=== PATIENT | male | born 1950 | race Caucasian/White ===

== ENCOUNTER 2023-09-09 06:17 | Day surgery (SDC) | payer OTHER, SELFPAY ==
[2023-09-01 10:39] VITALS: BMI 33.3
[2023-09-01 11:18] LABS: % Basophils 1.5 % (0-2); % Eosinophils 2.5 % (0-6); % Immature Granulocytes 0.3 % (0-0.5); % Lymphocytes 12.7 % (20.5-51.1); Absolute Basophils 0.1 10^3/uL (0-0.2); Absolute Eosinophils 0.2 10^3/uL (0-0.7); Absolute Lymphocytes 0.9 10^3/uL (1.2-3.4); Absolute Monocytes 0.7 10^3/uL (0.1-0.6); Absolute Neutrophils 5.4 10^3/uL (1.4-6.5); Hematocrit 42.9 % (39.0-52.0); Hemoglobin 13.9 g/dL (13.0-18.0); Mean Corp Hgb Conc. 32.4 g/dL (33.0-37.0); Mean Corpuscular Hgb 26.9 pg (27.0-31.0); Mean Platelet Volume 9.9 fL (7.4-10.4); Nucleated Red Blood Cells % 0 % (-); Platelet Count 239 10^3/uL (130-400); Red Blood Cell Count 5.17 10^6/uL (4.70-6.10); Red Cell Dist. Width 18.1 % (11.5-14.5); White Blood Cell Count 7.3 10^3/uL (4.8-10.8)
[2023-09-01 11:24] LABS: ALT (SGPT) 18 U/L (0-50); AST (SGOT) 20 U/L (17-59); Albumin 4.1 g/dl (3.5-5.0); Alkaline Phosphatase 96 U/L (38-126); Blood Urea Nitrogen 67 mg/dl (9-20); Calcium 9.5 mg/dl (8.4-10.2); Carbon Dioxide 27 mmol/L (22-30); Chloride 100 mmol/L (98-107); Estimated Creatinine Clearance 33 ml/min; Glucose 187 mg/dl (70-99); Potassium 3.4 mmol/L (3.5-5.1); Sodium 137 mmol/L (135-145); Total Protein 6.8 g/dl (6.3-8.2); eGFR 25.41
[2023-09-01 11:26] LABS: INR 1.39; PT 17.4 Sec (11.4-14.6)
[2023-09-01 15:48] LABS: NT-proBNP 1060 pg/ml
[2023-09-09] VITALS (22 sets, daily range): BP systolic 102–162; BP diastolic 39–98; BMI 33.0
[2023-09-09] MEDS: SODIUM BICARBONATE 1150 MEQ IV (07:02)
[2023-09-09 07:10] LABS: Glucose - Point of Care 135 mg/dl (70-99)
--- NOTE | 2023-09-09 07:15 | PTCARENOTE ---
Pt arrived to recovery room and placed on cardiac rn. Pt's cardiac rn showing Paced rhythm with runs of non sustained VT. Pt asymptomatic. VSS. Defibrillator pads placed and defibrillator at pt bedside as precaution. [employer] interrogator
device at pt bedside if needed. Dr Garg aware and in to evaluate and consent pt for procedure. No further treatment ordered at this time.
[2023-09-09] MEDS: ASPIRIN 325 MG PO (07:23)
--- NOTE | 2023-09-09 07:38 | ITS.CL.CATH ---
Cos[employer] Educator - Catheterization
Cardiac Catheterization
Procedure Report:
LEFT AND RIGHT HEART CATHETERIZATION
Date of Procedure: September 09, 2023
Referring: Johnathan Carson
PROCEDURES:
1. Left catheterization, coronary angiogram.
2. Right heart catheterization.
3. Ultrasound-guided access
INDICATION: Mr. Kumar is a 73-year-old gentleman with past medical history of hypertension, hyperlipidemia, insulin-dependent type 2 diabetes mellitus (Hgb A1c 8.7), paroxysmal atrial fibrillation on chronic anticoagulation with Eliquis, coronary
artery disease status post prior mid LAD PCI in 2015 with a 3.0 x 16 mm drug-eluting stent, ischemic cardiomyopathy with LVEF of about 40 to 45%, prior cerebellar stroke in 2020, chronic systolic and diastolic heart failure, morbid obesity, presence
of a permanent BiV pacemaker since 2019, QUENTIN on CPAP, progressive chronic kidney disease, stage IV (creatinine now mid 2s) most recently with ongoing dyspnea on exertion and frequent episodes of nonsustained VT who is now referred for a left and
right heart catheterization in setting of borderline stress test. Echocardiogram performed July 24, 2023 showed LVEF of 43% with akinesis of the basal inferior and inferoseptal kovacs with septal dyskinesis, LVH, dilated left atrium, pulmonary
artery pressure 5-10 mmHg. Compared to prior study April 08, 2021 EF slightly worse and previously being 45-50%. The patient had a subsequent nuclear stress test, which was inconclusive for ischemia, however, showed a mild basal to mid apical
anterior ischemia, basal mid-inferolateral scar complicated by inferior soft tissue attenuation.�
ACCESS:
1. Right brachial vein, 6 Malagasy sheath.
2. Left radial artery, 6 Malagasy sheath, under ultrasound guidance
HEMODYNAMICS : (mmHg): Significant ventricular ectopy and runs of nonsustained ventricular tachycardia contributing to data below having some limitations
RA (m) : 18
RV (s/d,m) : 56/17, 30
PA (s/d, m) : 28
PCWP (m) : 56/32, 40
PA saturation: 57.2% on room air
AO saturation: 89.1% on room air
RA saturation: 58.7% on room air
Cardiac Output : 5.1 L/min
Cardiac Index : 2.2 L/min/m-2
Systemic vascular resistance: 1041 dsc^(-5)
Pulmonary vascular resistance: 3.94 gutierrez unit
Heart rate is 87 bpm.
AO (s/d) : 104/72
LV (s/d) : 110/13
LVEDP : 24
CORONARY FINDINGS: Heavily calcified coronary artery
DOMINANCE: Right
LEFT MAIN: The left main artery is a large-caliber vessel which gives rise to the left anterior descending artery and the left circumflex artery. There is 10 to 20% distal tapering.
LEFT ANTERIOR DESCENDING: The left into descending artery is a medium to large caliber vessel which gives rise to one major small caliber diagonal branch. The previous mid LAD stent is patent. There is an eccentric 40 to 50% stenosis proximal to
the mid LAD stent. Otherwise there is mild diffuse atherosclerotic plaque without any focal obstructive CAD. The diagonal has a proximal 50% stenosis which appears unchanged from the previous catheterization.
CIRCUMFLEX: The left circumflex artery is a medium to large caliber vessel which gives rise to 1 major obtuse marginal branch. There is a stable 30 to 40% mid left circumflex stenosis.
RIGHT CORONARY ARTERY: The right coronary artery is a large-caliber, dominant vessel which gives rise to the right posterior descending artery and the right posterolateral system. There is mild diffuse atherosclerotic plaque.
SEDATION: 36 minutes of procedural sedation was utilized. An independent medical office manager was present to assist with and help manage the patient's level of consciousness and physiologic status.
RADIATION SUMMARY: Fluoro Time (min): 6.5, Dose (mGy): 646.3, DAP (Gy.cm2) : 54.4
Closure Device:
1. Radial band over left radial artery, 10 cc of air.
2. Manual pressure was held over the right brachial venous access site with successful hemostasis.
CONCLUSIONS
1. Stable non- obstructive coronary artery disease.
2. Significantly elevated left and right-sided filling pressures with normal cardiac output and severe pulmonary hypertension.
3. Elevated LVEDP.
RECOMMENDATIONS
1. Optimize diuretic therapy to improve filling pressures.
2. Goal-directed medical therapy for underlying cardiomyopathy.
3. Aggressive management of cardiovascular risk factors
Copy to: Johnathan Carson
Maria Luisa Garg MD, FACC, [facility]
--- NOTE | 2023-09-09 09:00 | PTCARENOTE ---
Received pt from laborer laboratory procedure. Pt continuing to have paced rhythm with runs of VT. Defibrillator pads remain on pt and defibrillator at pt bedside if needed. Pt remains asymptomatic. Will continue to monitor.
[2023-09-09] MEDS: LASIX 80 MG IV (09:14)
[2023-09-09] MEDS: KCL 20 MEQ PO (09:16)
--- NOTE | 2023-09-09 09:45 | PTCARENOTE ---
Eliane Calvin SNELLER HAND states Dr Garg spoke with Dr Carson. Dr Carson ordered to have pt's coreg increased to 37.5mg per Eliane Calvin NP. Coreg 37.5 mg will be given as ordered. Will continue to monitor.
[2023-09-09] MEDS: COREG 12.5 MG PO (10:04)
[2023-09-09] MEDS: COREG 25 MG PO (10:05)
[2023-09-09 10:14] LABS: Glucose - Point of Care 153 mg/dl (70-99)
[2023-09-09 10:19] LABS: Blood Urea Nitrogen 72 mg/dl (9-20); Calcium 9.2 mg/dl (8.4-10.2); Carbon Dioxide 25 mmol/L (22-30); Chloride 98 mmol/L (98-107); Estimated Creatinine Clearance 38 ml/min; Glucose 140 mg/dl (70-99); Magnesium 1.3 mg/dl (1.6-2.3); Potassium 3.2 mmol/L (3.5-5.1); Sodium 138 mmol/L (135-145); eGFR 31.05
[2023-09-09] MEDS: MAGNESIUM OXIDE 500 MG PO (10:46)
[2023-09-09] MEDS: KCL 40 MEQ PO (10:46)
[2023-09-09] MEDS: MAGNESIUM SULFATE 50 IV (11:33)
== END 2023-09-09 13:52 | disposition home or self-care (01) ==
LOC: CATH 06:17
PROVIDERS: Nurse Practitioner Adult Health; ATTENDING PHYSICIAN Internal Medicine Interventional Cardiology; FAMILY PHYSICIAN Family Medicine; OTHER PHYSICIAN Internal Medicine Cardiovascular Disease
DX: I25.10 Atherosclerotic heart disease of native coronary artery without angina pectoris (principal); I27.20 Pulmonary hypertension, unspecified; I25.5 Ischemic cardiomyopathy; I48.0 Paroxysmal atrial fibrillation; I47.20 Ventricular tachycardia, unspecified; E78.5 Hyperlipidemia, unspecified; Z79.4 Long term (current) use of insulin; I13.0 Hypertensive heart and chronic kidney disease with heart failure and stage 1 through stage 4 chronic kidney disease, or unspecified chronic kidney disease; E11.22 Type 2 diabetes mellitus with diabetic chronic kidney disease; N18.32 Chronic kidney disease, stage 3b; I50.42 Chronic combined systolic (congestive) and diastolic (congestive) heart failure; Z87.891 Personal history of nicotine dependence; K21.9 Gastro-esophageal reflux disease without esophagitis; E66.9 Obesity, unspecified; Z68.33 Body mass index [BMI] 33.0-33.9, adult; G47.33 Obstructive sleep apnea (adult) (pediatric); Z79.01 Long term (current) use of anticoagulants; H26.9 Unspecified cataract; M19.90 Unspecified osteoarthritis, unspecified site; R26.9 Unspecified abnormalities of gait and mobility; E11.40 Type 2 diabetes mellitus with diabetic neuropathy, unspecified; E11.319 Type 2 diabetes mellitus with unspecified diabetic retinopathy without macular edema; Z95.5 Presence of coronary angioplasty implant and graft; Z86.73 Personal history of transient ischemic attack (TIA), and cerebral infarction without residual deficits
CPT/HCPCS: 99152; 99153; 36415; 76937; 80048; 80053; 82962; 83735; 83880; 85025; 85610; 93005; 93460; C1894

== ENCOUNTER 2024-10-18 23:54 | Inpatient (IN) | payer MEDICARE, OTHER, SELFPAY ==
[2024-10-18 18:20] VITALS: BMI 30.8
[2024-10-18 18:24] VITALS: BP 96/61
[2024-10-18 18:53] LABS: % Basophils 1.2 % (0-2); % Eosinophils 2.4 % (0-6); % Immature Granulocytes 0.3 % (0-0.5); % Lymphocytes 12.2 % (20.5-51.1); % Monocytes 9.9 % (1.7-9.3); Absolute Basophils 0.1 10^3/uL (0-0.2); Absolute Eosinophils 0.2 10^3/uL (0-0.7); Absolute Lymphocytes 0.8 10^3/uL (1.2-3.4); Absolute Monocytes 0.7 10^3/uL (0.1-0.6); Hemoglobin 12.1 g/dL (13.0-18.0); Mean Corp Hgb Conc. 31.8 g/dL (33.0-37.0); Mean Corpuscular Hgb 25.6 pg (27.0-31.0); Mean Corpuscular Volume 80.5 fL (80.0-94.0); Mean Platelet Volume 9.9 fL (7.4-10.4); Nucleated Red Blood Cells % 0 % (-); Platelet Count 204 10^3/uL (130-400); Red Blood Cell Count 4.72 10^6/uL (4.70-6.10); Red Cell Dist. Width 17.9 % (11.5-14.5); White Blood Cell Count 6.8 10^3/uL (4.8-10.8)
[2024-10-18 19:10] LABS: ALT (SGPT) 10 U/L (0-50); AST (SGOT) 16 U/L (17-59); Albumin 4.5 g/dl (3.5-5.0); Alkaline Phosphatase 102 U/L (38-126); Calcium 9.6 mg/dl (8.4-10.2); Carbon Dioxide 28 mmol/L (22-30); Chloride 88 mmol/L (98-107); Glucose 71 mg/dl (70-99); Potassium 3.2 mmol/L (3.5-5.1); Sodium 130 mmol/L (135-145); Total Bilirubin 1.4 mg/dl (0.2-1.3); Total Protein 7.1 g/dl (6.3-8.2); eGFR 16.01
[2024-10-18 19:26] LABS: Blood Urea Nitrogen 154 mg/dl (9-20)
--- NOTE | 2024-10-18 19:40 | ED.SKININJ ---
HPI-Injury
<Rosey Burgos PATIENT CARE - Last Filed: 10/21/24 09:02>
General
Chief Complaint: Skin Problem
Source: patient and family (Daughter at bedside)
Exam Limitations: none
Time Seen by Provider: 10/18/24 19:38
Nursing documentation reviewed up to this point in time: agreed with
History of Present Illness-Injury
Initial Injury comments:
74-year-old male with history of CVA, A-fib on Eliquis, IDDM, CHF, CAD, HTN, HLD, pacemaker, CKD, anemia presents for redness, swelling, scabs on right side of face. States it's not painful. Rash w scabbing and redness has spread slowly over past 9
days. Rash is no where else on body. No lesions in mouth. Tooth remains 'sore' but no significant pain. Was to have tooth pulled today but postponed due to facial rash
10/09 right upper tooth pain
10/10 saw dentist, given rx for Amoxicillin, noted 'scratch' right mid cheek (this was noted BEFORE starting Amoxicillin).
10/11 started Amoxicillin BID
Today took last Amoxicillin
Denies fever/chills. Denies n/v/c. Has chronic intermittent diarrhea.
Past week, appetite poor, lost 10 lbs, not urinating as much.
Past History
<Rosey Burgos, PATIENT CARE - Last Filed: 10/21/24 09:02>
Past History
ED Past Medical History: Arrthythmia, CAD, HTN, Hypercholesterolemia, NIDDM, Other (Chronic kidney disease) and Other (Anemia)
ED Past Surgical History: Cardiac, Orthopedic and Other (Hernia surgery)
Social History
Tobacco: Former smoker
Alcohol: None
Drug: None
Personal:
Living: with family
Family History
Family History: Other (Noncontributory)
Review of Systems
<Rosey Burgos PATIENT CARE - Last Filed: 10/21/24 09:02>
Review of Systems
Allergies reviewed?: Yes
All Other Systems: ROS reviewed and negative except as documented in HPI and ROS
Constitutional: Denies fever or chills
EENT: Reports other (sore upper right tooth)
Respiratory: Denies trouble breathing
Cardiac: Denies chest pain
ABD/GI: Reports diarrhea (chronic, intermittent) and anorexia; Denies abdominal pain, nausea or vomiting
: Reports other (voiding less than usual past week)
Musculoskeletal: Reports no symptoms; Denies edema
Skin: Reports rash (right side of face)
Neurological: Reports no symptoms
Phy Exam
<Rosey Burgos, PATIENT CARE - Last Filed: 10/21/24 09:02>
Physical Exam
Physical Exam:
GENERAL: No acute distress. A&Ox3.
CONSTITUTIONAL: Afebrile.
EYES: clear, redness and ectropion R lower eyelid
ENMT: moist mucus membranes, Pharynx nl
RESPIRATORY: Regular respirations, nonlabored, lungs clear.
CARDIOVASCULAR: Regular rate and rhythm, no murmurs, no rubs.
GI: Soft, nontender, normal BS
MUSCULOSKELETAL: Moves with ease. Well perfused.
SKIN: Warm, dry, pink. Scabbed over rash on erythematous base over right side face from lower lid to upper lip
PSYCH: Normal mood and affect. Well kept, interactive and appropriate
NEUROLOGIC: Awake, alert and oriented. No focal neurological deficits
Course
<Rosey Burgos, PATIENT CARE - Last Filed: 10/21/24 09:02>
Orders/Labs/Results
Orders:
Orders
10/18/24 18:34
Complete Blood Count/With Diff Urgent
Comprehensive Metabolic Panel Urgent
10/18/24 19:52
Bladder Scan- Treatment ONCE
10/18/24 19:53
0.9% Sodium Chloride 1000 ml [Nss] 1,000 ml IV BOLUS
10/18/24 20:49
CT Facial Bones W/o Iv Contras Urgent
Comment:
Reason For Exam: infection right side face
10/18/24 22:35
Clindamycin 900 mg/50 ml [Cleocin] 900 mg in 50 ml IV NOW
10/18/24 23:00
Flush (0.9% Sodium Chloride) [Flush (Nss)] See Dose Instructions IV PER PROTOCOL
10/18/24 23:03
Admit/Transfer Patient As Directed
Co-Sign Provider:
Level of Care: Inpatient admission
Assign to:: Medical/Surgical
Physician / Group: Htay
Diagnosis: Shingles
Reason for Hospitalization: IV acyclovir
Expected length of stay greater than two midnights?: Yes
ELOS- Estimated Length of Stay in days: 3
I certify the patient meets the requirements for IP care: Yes
PRN Pain Medication Management As Directed
May give lesser potent ordered pain med per pt: Yes
preference::
Protocol:: Medication orders for pain may be administered in a
manner that supports deferring to patient preference
when the pt is:
- Requesting an ordered lesser potent pain medication.
Least to most potent pain medications are defined
as: acetaminophen < NSAID < tramadol < opioids
(morphine, oxycodone, hydromorphone).
- Requesting a lesser dose of the same medication IF
ORDERED.
- Requesting a less intrusive route of administration
if both routes are prescribed by the provider (PO <
IV).
10/18/24 23:06
Code Status As Directed
Resuscitation Status: Full Code
10/19/24 00:40
Acetaminophen [Tylenol] 650 mg PO Q4HPRN PRN
Dextrose 50%-Water [Dextrose 50% Syringe] 12.5 grams IV [id number] PRN
Glucagon [GlucaGen] 1 mg IM PRN PRN
10/19/24 00:40
Consult Notification Routine
Specialty to Notify: Infectious Disease
Date consulting provider notified: 10/19/24
Time consulting provider notified: 08:10
Notified:: Provider
Comment: via TT
Consult Notification Routine
Specialty to Notify: Nephrology
Date consulting provider notified: 10/19/24
Time consulting provider notified: 07:58
Notified:: Provider
Comment: via TT
Consult Notification Routine
Specialty to Notify: Opthamology
Date consulting provider notified: 10/19/24
Time consulting provider notified: 07:58
Notified:: Provider
Comment: via TT
INFECTIOUS DISEASE CONSULT Routine
Consulting Provider: Emmy Lang
Was physician already notified: No
Reason for consult: shingles
NEPHROLOGY CONSULT Routine
Consulting Provider: Raisa Thompson
Was physician already notified: No
Reason for consult: CRISTIAN on CKD IV
OPHTHAMOLOGY CONSULT Routine
Consulting Provider: Kathy Chu
Was physician already notified: No
Reason for consult: shingles, possible herpes ophthalmicus
Activity As Directed
Activity Level: Out of Bed-Early Mobility
With Assistance
Bedside Glucose Monitoring As Directed
Frequency: AC&HS
Additional Instructions:: Change to q6h if pt on TPN, tube feeding or not eating
I&O [Intake/ Output] As Directed
Frequency: q12h
Pneumatic Compression Sleeves As Directed
Type: Knee high
Vital Signs As Directed
Frequency: Per unit guidelines
Weight As Directed
Frequency: Daily
DX Deep Vein Thrombosis Video Routine
10/19/24 01:00
Acyclovir [Zovirax Injection] 800 mg 0.9% Sodium Chloride 250 ml [Nss] 250 ml IV Q12@0000,1200
10/19/24 06:00
CeFAZolin 2 GRAM [Ancef] 2 grams in 10 ml IV Q12H
10/19/24 06:08
Basic Metabolic Panel IN AM
Complete Blood Count/No Diff IN AM
Glycohemoglobin (HgbA1c) IN AM
10/19/24 07:30
Insulin Aspart High Resistance [Novolog Flexpen-High Resistance] See Protocol SC AC
Insulin Aspart Pen [Novolog Flexpen] DOSE units SC AC
10/19/24 08:00
Allopurinol [Zyloprim] 300 mg PO DAILY
Apixaban [Eliquis] 5 mg PO BID
Atorvastatin [Lipitor] 80 mg PO DAILY
Carvedilol [Coreg] 50 mg PO BID
HydrALAZINE [Apresoline] 10 mg PO BID
ISOSORBIDE MONOnitrate ER [Imdur (Extended Release)] 30 mg PO DAILY
Pantoprazole [Protonix] 40 mg PO DAILY
10/19/24 Dinner
2000 calorie (17 carb) Diabetic
At Your Request: Full Participation
Fluid Restriction: 1500 mL/day (50 oz)
Diabetic Diet: Sodium, 2 Gram
10/19/24 22:00
insulin glargine [Lantus U-100 Insulin] 40 units SC HS
Abnormal Lab Results
10/18/24
18:34
Hgb 12.1 L g/dL
(13.0-18.0)
Hct 38.0 L %
(39.0-52.0)
MCH 25.6 L pg
(27.0-31.0)
MCHC 31.8 L g/dL
(33.0-37.0)
RDW 17.9 H %
(11.5-14.5)
Absolute Lymphs (auto) 0.8 L 10^3/uL
(1.2-3.4)
Absolute Monos (auto) 0.7 H 10^3/uL
(0.1-0.6)
Lymphocytes % 12.2 L %
(20.5-51.1)
Monocytes % 9.9 H %
(1.7-9.3)
Sodium 130 L mmol/L
(135-145)
Potassium 3.2 L mmol/L
(3.5-5.1)
Chloride 88 L mmol/L
(98-107)
BUN 154 H* mg/dl
(9-20)
Creatinine 3.8 H mg/dL
(0.7-1.3)
Total Bilirubin 1.4 H mg/dl
(0.2-1.3)
AST 16 L U/L
(17-59)
10/18/24 18:34
10/18/24 18:34
Vital Signs
Initial and Last Documented VS:
Initial Vital Signs
Temp Pulse Resp BP Pulse Ox
97.4 F 97 18 96/61 97
10/18/24 18:24 10/18/24 18:24 10/18/24 18:24 10/18/24 18:24 10/18/24 18:24
Last Documented Vital Signs
Temp Pulse Resp BP Pulse Ox
97.5 F 82 16 116/70 97
10/21/24 07:27 10/21/24 08:31 10/21/24 07:27 10/21/24 08:31 10/21/24 07:27
Mercury Purifier consulted with Physician
Mercury Purifier consulted with physician?: Yes
Name of Physician Consulted: Donna
<Jarrell Thompson MD - Last Filed: 10/18/24 22:24>
Orders/Labs/Results
Orders:
Orders
10/18/24 18:34
Complete Blood Count/With Diff Urgent
Comprehensive Metabolic Panel Urgent
10/18/24 19:52
Bladder Scan- Treatment ONCE
10/18/24 19:53
0.9% Sodium Chloride 1000 ml [Nss] 1,000 ml IV BOLUS
10/18/24 20:49
CT Facial Bones W/o Iv Contras Urgent
Comment:
Reason For Exam: infection right side face
10/18/24 22:35
Clindamycin 900 mg/50 ml [Cleocin] 900 mg in 50 ml IV NOW
10/18/24 23:00
Flush (0.9% Sodium Chloride) [Flush (Nss)] See Dose Instructions IV PER PROTOCOL
10/18/24 23:03
Admit/Transfer Patient As Directed
Co-Sign Provider:
Level of Care: Inpatient admission
Assign to:: Medical/Surgical
Physician / Group: Htay
Diagnosis: Shingles
Reason for Hospitalization: IV acyclovir
Expected length of stay greater than two midnights?: Yes
ELOS- Estimated Length of Stay in days: 3
I certify the patient meets the requirements for IP care: Yes
PRN Pain Medication Management As Directed
May give lesser potent ordered pain med per pt: Yes
preference::
Protocol:: Medication orders for pain may be administered in a
manner that supports deferring to patient preference
when the pt is:
- Requesting an ordered lesser potent pain medication.
Least to most potent pain medications are defined
as: acetaminophen < NSAID < tramadol < opioids
(morphine, oxycodone, hydromorphone).
- Requesting a lesser dose of the same medication IF
ORDERED.
- Requesting a less intrusive route of administration
if both routes are prescribed by the provider (PO <
IV).
10/18/24 23:06
Code Status As Directed
Resuscitation Status: Full Code
10/19/24 00:40
Acetaminophen [Tylenol] 650 mg PO Q4HPRN PRN
Dextrose 50%-Water [Dextrose 50% Syringe] 12.5 grams IV [id number] PRN
Glucagon [GlucaGen] 1 mg IM PRN PRN
10/19/24 00:40
Consult Notification Routine
Specialty to Notify: Infectious Disease
Date consulting provider notified: 10/19/24
Time consulting provider notified: 08:10
Notified:: Provider
Comment: via TT
Consult Notification Routine
Specialty to Notify: Nephrology
Date consulting provider notified: 10/19/24
Time consulting provider notified: 07:58
Notified:: Provider
Comment: via TT
Consult Notification Routine
Specialty to Notify: Opthamology
Date consulting provider notified: 10/19/24
Time consulting provider notified: 07:58
Notified:: Provider
Comment: via TT
INFECTIOUS DISEASE CONSULT Routine
Consulting Provider: Emmy Lang
Was physician already notified: No
Reason for consult: shingles
NEPHROLOGY CONSULT Routine
Consulting Provider: Raisa Thompson
Was physician already notified: No
Reason for consult: CRISTIAN on CKD IV
OPHTHAMOLOGY CONSULT Routine
Consulting Provider: Kathy Chu
Was physician already notified: No
Reason for consult: shingles, possible herpes ophthalmicus
Activity As Directed
Activity Level: Out of Bed-Early Mobility
With Assistance
Bedside Glucose Monitoring As Directed
Frequency: AC&HS
Additional Instructions:: Change to q6h if pt on TPN, tube feeding or not eating
I&O [Intake/ Output] As Directed
Frequency: q12h
Pneumatic Compression Sleeves As Directed
Type: Knee high
Vital Signs As Directed
Frequency: Per unit guidelines
Weight As Directed
Frequency: Daily
DX Deep Vein Thrombosis Video Routine
10/19/24 01:00
Acyclovir [Zovirax Injection] 800 mg 0.9% Sodium Chloride 250 ml [Nss] 250 ml IV Q12@0000,1200
10/19/24 06:00
CeFAZolin 2 GRAM [Ancef] 2 grams in 10 ml IV Q12H
10/19/24 06:08
Basic Metabolic Panel IN AM
Complete Blood Count/No Diff IN AM
Glycohemoglobin (HgbA1c) IN AM
10/19/24 07:30
Insulin Aspart High Resistance [Novolog Flexpen-High Resistance] See Protocol SC AC
Insulin Aspart Pen [Novolog Flexpen] DOSE units SC AC
10/19/24 08:00
Allopurinol [Zyloprim] 300 mg PO DAILY
Apixaban [Eliquis] 5 mg PO BID
Atorvastatin [Lipitor] 80 mg PO DAILY
Carvedilol [Coreg] 50 mg PO BID
HydrALAZINE [Apresoline] 10 mg PO BID
ISOSORBIDE MONOnitrate ER [Imdur (Extended Release)] 30 mg PO DAILY
Pantoprazole [Protonix] 40 mg PO DAILY
10/19/24 Dinner
2000 calorie (17 carb) Diabetic
At Your Request: Full Participation
Fluid Restriction: 1500 mL/day (50 oz)
Diabetic Diet: Sodium, 2 Gram
10/19/24 22:00
insulin glargine [Lantus U-100 Insulin] 40 units SC HS
Abnormal Lab Results
10/18/24
18:34
Hgb 12.1 L g/dL
(13.0-18.0)
Hct 38.0 L %
(39.0-52.0)
MCH 25.6 L pg
(27.0-31.0)
MCHC 31.8 L g/dL
(33.0-37.0)
RDW 17.9 H %
(11.5-14.5)
Absolute Lymphs (auto) 0.8 L 10^3/uL
(1.2-3.4)
Absolute Monos (auto) 0.7 H 10^3/uL
(0.1-0.6)
Lymphocytes % 12.2 L %
(20.5-51.1)
Monocytes % 9.9 H %
(1.7-9.3)
Sodium 130 L mmol/L
(135-145)
Potassium 3.2 L mmol/L
(3.5-5.1)
Chloride 88 L mmol/L
(98-107)
BUN 154 H* mg/dl
(9-20)
Creatinine 3.8 H mg/dL
(0.7-1.3)
Total Bilirubin 1.4 H mg/dl
(0.2-1.3)
AST 16 L U/L
(17-59)
10/18/24 18:34
10/18/24 18:34
Vital Signs
Initial and Last Documented VS:
Initial Vital Signs
Temp Pulse Resp BP Pulse Ox
97.4 F 97 18 96/61 97
10/18/24 18:24 10/18/24 18:24 10/18/24 18:24 10/18/24 18:24 10/18/24 18:24
Last Documented Vital Signs
Temp Pulse Resp BP Pulse Ox
97.5 F 82 16 116/70 97
10/21/24 07:27 10/21/24 08:31 10/21/24 07:27 10/21/24 08:31 10/21/24 07:27
Aurealt;Rosey Burgos PATIENT CARE - Last Filed: 10/21/24 09:02>
MDM/Problems Addressed
Differential Diagnosis Includes:
cellulitis, dental abscess, shingles, SJS, TENS,
MDM/Problems Addressed:
74-year-old male with history of CVA, A-fib on Eliquis, IDDM, CHF, CAD, HTN, HLD, pacemaker, CKD, anemia,CPAP, presents for redness, swelling, scabs on right side of face. States it's not painful. Rash w scabbing and redness has spread slowly over
past 9 days. Rash is no where else on body. No lesions in mouth. Tooth remains 'sore' but no significant pain. Was to have tooth pulled today but postponed due to facial rash
10/09 right upper tooth pain
10/10 saw dentist, given rx for Amoxicillin, noted 'scratch' right mid cheek (this was noted BEFORE starting Amoxicillin).
10/11 started Amoxicillin BID
Today took last Amoxicillin
Denies fever/chills. Denies n/v/c. Has chronic intermittent diarrhea.
Past week, appetite poor, lost 10 lbs, not urinating as much.
CBC: no clinically significant abnormality
CMP: acute on chronic renal failure
Facial CT: no abscess noted. Official report pending
Case discussed with Dr. Thompson who examined pt and agrees with assessment and plan
Plan: Admit: Facial cellulitis, acute on chronic renal insufficiency
Hospitalist notified of admission.
<Rosey Burgos NP - Last Filed: 10/21/24 09:02>
*Critical Care Note
Total Time (30-74mins, 75-104mins- exclusive of procedures): Not Applicable
ED Attending Note
<Rosey Burgos NP - Last Filed: 10/21/24 09:02>
-
Portions of this chart may have been created with voice recognition software.� Occasional wrong word or��sound alike� substitutions may have occurred due to the inherent limitations of voice recognition software.
<Jarrell Thompson MD - Last Filed: 10/18/24 22:24>
ED Attending Note
Patient seen and examined by attending physician: Yes
ED Attending Note:
I have seen and evaluated the patient with a [id number] encounter. I have spoken to the advance practicer provider and involved in the medical history, the physical exam, medical decision making.
Evaluation and management service: agree unless noted differently below.
Results interpretation: agree unless noted differently below.
Focused HPI: 74-year-old male with history as noted presents to the ER for evaluation of right-sided facial pain and rash. He started with toothache 2 weeks ago and was taking Tylenol. He started to have scab/rash on the right cheek went to his
dentist who was concerned for dental infection and started him on amoxicillin. Despite taking antibiotic he has had continued pain, redness, swelling, scabbing on the right cheek and right side of his nose. Came to the ER for assessment.
Physical exam: Awake alert no distress. Vital signs normal. Patient has erythema, warmth, tenderness along the right maxillary region as well as the right side of his nose; scabbing/cracking of the skin. Extends slightly to the upper lip. No
oral ulcerations or sores noted. No tenderness to percussion of the upper molars.
Medical Decision Makin-year-old male presents with redness, swelling, scabbing of the right face in the setting of recent dental infection. Has been on amoxicillin but symptoms actually worsening. Patient started having rash well before
starting Augmentin and so lower suspicion that this is related to SJS/drug rash. Suspected this may be a facial cellulitis. CT face no clear abscess but does show findings consistent with cellulitis. Labs showed CRISTIAN, mild hypokalemia. Provide
fluids, antibiotics, admit for continued monitoring.
Discharge Plan
Departure
Patient Disposition: Admit
Date of Disposition: 10/18/24
Time of Disposition: 21:58
Admit to: Med/Surg
Presentation/result/management discussed w/ accepting MD/DO: Hospitalist
Condition: Fair
Discharge Problem:
Cellulitis of face, CRISTIAN (acute kidney injury)
Interventions
Interventions:
*Risk Screen - Suicide Last Done: 10/18/24 18:24
*General Assessment Last Done: 10/18/24 18:24
*Neglect/Abuse Screening Last Done: 10/18/24 18:24
*ED COVID-19 Vaccine History Last Done: 10/19/24 16:13
*Nursing Disposition Last Done: 10/19/24 15:30
ED-Skin Assessment Last Done: 10/19/24 07:48
Discharge Date and Time
Discharge Date/Time: 10/19/24 15:40
[2024-10-18 20:30] VITALS: BP 114/64
[2024-10-18] MEDS: NSS 1000 IV (20:33)
[2024-10-18 21:00] VITALS: BP 110/72
--- NOTE | 2024-10-18 22:10 | HPS.HSE ---
Family Physician
-
Family Physician: Suzy Arias, DO
Chief Complaint
-
Facial Rash
History of Present Illness
Patient is a 74 y/o male past medical history of CAD, CVA, CHF, CKD, A-fib, and DM who presents with facial rash. Patient describes redness, swelling and scabs on his right face. He denies pain, but notes the area can be itchy at times. He notes
bleeding from the nose which has become more frequent. He notes decreased oral intake. He denies fevers, sweats or chills.
Medical History
Past Medical History
Past Medical History: Reports Other
Additional Past Medical History:
Coronary Artery Disease s/p LAD Stent in 2016
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
Chronic HFrEF
Paroxysmal Atrial Fibrillation s/p Ablation
Non-Sustained Ventricular Tachycardia
Essential Hypertension
Hyperlipidemia
Diabetes mellitus, Type II
CKD Stage IV
GERD
Obesity
Obstructive Sleep Apnea
Gout
Past Surgical History: Reports Other
Additional Past Surgical History:
Permanent Pacemaker
Left Ankle Surgery
Left Knee Surgery
Umbilical Hernia Repair
Social History
Tobacco: Former Smoker
Family History
Family History: Not pertinent
Allergies / Home Medications
Allergies reflects when Allergies were last updated in [facility].
Home Medications with original date entered in [facility]
Allergy/Medication List:
Allergies
Allergy/AdvReac Type Severity Reaction Status Date / Time
acetaminophen Allergy cough Verified 10/18/24 18:24
lisinopril Allergy cough Verified 10/18/24 18:24
metformin Allergy renal Verified 10/18/24 18:24
failure
Home Medications
apixaban 5 mg tablet (Eliquis) 5 mg PO BID #0 tabs 04/19/21
cholecalciferol (vitamin D3) 50 mcg (2,000 unit) tablet 2,000 units PO DAILY #0 tabs 04/19/21
clopidogrel 75 mg tablet 75 mg PO DAILY #30 tabs 04/19/21
hydralazine 10 mg tablet 10 mg PO BID #0 tabs 04/19/21
isosorbide mononitrate 30 mg tablet,extended release 24 hr 30 mg PO DAILY #0 tabs 04/19/21
pantoprazole 40 mg tablet,delayed release 40 mg PO DAILY #30 tabs 04/19/21
allopurinol 300 mg tablet 300 mg PO DAILY 07/28/23
atorvastatin 80 mg tablet 80 mg PO DAILY 07/28/23
carvedilol 25 mg tablet 50 mg PO BID 07/28/23
insulin aspart U-100 100 unit/mL (3 mL) subcutaneous pen (Novolog FlexPen U-100 Insulin aspart) 40 - 60 sliding scale dose SC AC 07/28/23
insulin glargine 100 unit/mL subcutaneous solution (Lantus U-100 Insulin) 50 units SC HS 07/28/23
furosemide 80 mg tablet (Lasix) 80 mg PO BID #180 tabs 09/09/23
potassium chloride 20 mEq tablet,extended release(part/cryst) (Klor-Con M) 40 meq (2 x 20 mEq) PO BID #180 tabs 09/09/23
magnesium oxide 500 mg PO QPM 10/18/24
metolazone 5 mg tablet 5 mg PO MOWEFR 10/18/24
Review of Systems
-
A 12 point ROS was completed and negative except as noted: Yes
Constitutional: Denies Fever or Chills
Respiratory: Denies Cough or Trouble Breathing
Cardiac: Denies Chest Pain or Palpitations
Physical Exam
Vital Signs
Vital Signs
Temp Pulse Resp BP Pulse Ox
97.4 F 85 20 110/72 100
10/18/24 18:24 10/18/24 20:46 10/18/24 20:46 10/18/24 21:00 10/18/24 21:00
Physical Exam
General: Comfortable and Conversant
HEENT: Anicteric and Moist mucous membranes
Respiratory: Clear and Non Labored Respirations
Cardiac: S1/S2 and Regular Rhythm
GI: Soft and Non Tender
Rectal: Deferred by Provider
Musculoskeletal: No Clubbing, No Cyanosis and No Edema
Skin: Warm, Dry and Rash (Right face with bloody crusting lesion across right nose, and maxillary region)
Neuro: Awake, Alert, Oriented and Nonfocal/grossly intact
Psych: Calm
Laboratory Results
-
10/18/24 18:34
10/18/24 18:34
Laboratory Results
Total Bilirubin 1.4 mg/dl (0.2-1.3) H 10/18/24 18:34
AST 16 U/L (17-59) L 10/18/24 18:34
ALT 10 U/L (0-50) 10/18/24 18:34
Alkaline Phosphatase 102 U/L (38-126) 10/18/24 18:34
Data Reviewed
-
Lab Data: Labs Reviewed by me
Impression/Plan
-
Right Facial Shingles
-Consult Infectious Disease
-Consult Ophthalmology for possible herpes ophthalmicus
-Continue IV acyclovir
-Continue Ancef for possible superimposed bacterial infection
Acute Kidney Injury on CKD IV with significantly elevated BUN
-Suspect elevated BUN is related to significant epistaxis
-Consult Nephrology
-Hold diuretics
-Recheck labs in AM
Coronary Artery Disease s/p LAD Stent in 2016
-Hold Plavix due to facial bleeding / epistaxis
Chronic HFrEF
-Diuretics on hold
-Monitor Is&Os and Daily Weights
Paroxysmal Atrial Fibrillation s/p Ablation
-Continue Eliquis despite bleeding given history of CVA
-Continue Coreg for rate control
Essential Hypertension
-Continue Coreg and Hydralazine
Hyperlipidemia
-Continue atorvastatin
Diabetes mellitus, Type II
-Continue Lantus and NovoLog
-Monitor sugars and continue coverage insulin
GERD
-Continue Protonix
Obesity
-Encourage weight loss
Obstructive Sleep Apnea
-Hold on CPAP with shingles
Hx CVA with mild right hemiparesis and left visual deficit
Hx Non-Sustained Ventricular Tachycardia
DVT proph: Eliquis
Code Status: Full Code
[2024-10-18] MEDS: CLEOCIN 50 IV (22:53)
--- NOTE | 2024-10-18 23:10 | W.PN.UPDATE ---
Addendum entered and electronically signed by Milad Reno MD 10/19/24 07:58:
Consult:
Cam Milling Machine Operator , In Service Educator and ID consult requested
Original Note:
Update Note
Progress Note Update
This note serves as an addendum to the H&P by civil draftsman DAT Kimmie VIRK
HPI
74F HX CVA, Prx AF on Eliquis, IDDM, CHF, CAD, HTN, HLD, PPM , CKD seen at ER ;
- painless redness, swelling, scabs on right side of face.
- rash w scabbing and redness has spread slowly over past 9 days.
- Rash is no where else on body.
- No lesions in mouth.
- Tooth remains 'sore' but no significant pain postponed dagoberto extraction due to facial rash
- On Amoxicillin since 10/10- till today Rx by [facility]
ROS
Denies fever/chills. Denies n/v/c. Has chronic intermittent diarrhea.
Vital Signs
Temp Pulse Resp BP Pulse Ox
97.4 F 85 20 110/72 100
10/18/24 18:24 10/18/24 20:46 10/18/24 20:46 10/18/24 21:00 10/18/24 21:00
PE
Gen: no toxic
HEENT: black crusted Rt sided maxillary division V2 Zoster rash cellulitis
redness and ectropion R lower eyelid
Scabbed over rash on erythematous base over right side face from lower lid to upper lip
Neck: supple
Lungs: CTA
Cor: RRR S1 s2
Abdomen: soft abdomen
TMH TEACHER: AAO3 NFND
MS: no edema
Psych: nl appropriate
Laboratory Tests
09/01/23 09/09/23 10/18/24
10:57 09:13 18:34
WBC 7.3 6.8
Sodium 138 130 L
Potassium 3.2 L 3.2 L
Carbon Dioxide 27 25 28
BUN 72 H 154 H*
Creatinine 2.6 H 2.2 H 3.8 H
eGFR 25.41 31[address]
- Mild skin thickening of the right cheek, asymmetric compared to the left, suggestive of cellulitis.
- On this unenhanced examination, no evidence of a focal collection to suggest an abscess.
- Significant caries involving the left maxillary first premolar.
- There also appears to be caries involving the anterior aspect of the right maxillary second premolar.
- Paranasal sinus disease as described
- Moderate to severe carotid arterial calcifications.
07/24/23 TTE
LVEF 43 %
Akinesis of the basal inferior and inferoseptal kovacs with septal dyskinesis
Grade 2 diastolic dysfunction
Normal RV size and systolic function
Right-sided device wires present
mild to moderate mitral regurgitation
est PASP 39-43
Compared to prior study dated 04/08/2021, LV ejection fraction previously estimated 45-50%. Mitral regurgitation previously mild. Otherwise, no significant change.
Last hospitalist admission:
DATE OF ADMISSION: 09/26/2019 - DATE OF DISCHARGE: 10/01/2019
DC DX:
Prx AF cadioverted
Acute on chr HFrEF with EF 35%
T2MI
ASSESSMENT & PLAN
74M CVA, A-fib on Eliquis, IDDM, CHF, CAD, HTN, HLD, pacemaker, CKD, anemia,CPAP, presents for redness, swelling, scabs on right side of face
HPI
74F HX CVA, Prx AF on Eliquis, IDDM, CHF, CAD, HTN, HLD, PPM , CKD seen at ER ;
- painless redness, swelling, scabs on right side of face.
- rash w scabbing and redness has spread slowly over past 9 days.
- Rash is no where else on body.
- No lesions in mouth.
- Tooth remains 'sore' but no significant pain postponed dagoberto extraction due to facial rash
- On Amoxacillin since 10/10- till today Rx by [facility]
ROS
Denies fever/chills. Denies n/v/c. Has chronic intermittent diarrhea.
Reviewed VS:
PE
Gen: no toxic
HEENT: black crusted Rt dised maxilary divison V2 Zoster rash cellultis
redness and ectropion R lower eyelid
Scabbed over rash on erythematous base over right side face from lower lid to upper lip
Neck: supple
Lungs: CTA
Cor: RRR S1 s2
Abdomen: soft abdomen
TMH TEACHER: AAO3 NFND
MS: no edema
Psych: nl appropriate
Data
Facial bone CT
- Mild skin thickening of the right cheek, asymmetric compared to the left, suggestive of cellulitis.
- On this unenhanced examination, no evidence of a focal collection to suggest an abscess.
- Significant caries involving the left maxillary first premolar.
- There also appears to be caries involving the anterior aspect of the right maxillary second premolar.
- Paranasal sinus disease as described
- Moderate to severe carotid arterial calcifications.
07/24/23 TTE
LVEF 43 %
Akinesis of the basal inferior and inferoseptal kovacs with septal dyskinesis
Grade 2 diastolic dysfunction
Normal RV size and systolic function
Right-sided device wires present
mild to moderate mitral regurgitation
est PASP 39-43
Compared to prior study dated 04/08/2021, LV ejection fraction previously estimated 45-50%. Mitral regurgitation previously mild. Otherwise, no significant change.
Last hospitalist admission:
DATE OF ADMISSION: 09/26/2019 - DATE OF DISCHARGE: 10/01/2019
DC DX:
Prx AF cadioverted
Acute on chr HFrEF with EF 35%
T2MI
ASSESSMENT & PLAN
74-year-old male with history of CVA, A-fib on Eliquis, IDDM, CHF, CAD, HTN, HLD, pacemaker, CKD, anemia,CPAP, presents for redness, swelling, scabs on right side of face
Concerning for HZO ( Herpes Zoster V2 maxillary division plus or minus V1 Ophthalmicus division )
Painless but itches suspect Hyperaesthesia ?
Rt Facial cellulitis due to HZO plus or minus secondary bacterial infection
No CT evidence of a focal collection / abscess
Risks for Herpes Zoster ( Diabetic, dental caries)
- stop OP Amoxicillin ( 10/10- 10/18)
- stop IV Clindamycin at ER
- start IV Acyclovir likely q12h by Cr Cl of CKD4
- empiric IV Ancef for secondary bacterial infection
- stop IV Clindamycin
- Hold Plavix
- ID consult
- Ophthalmology consult
CRISTIAN
CKD4
- renal dose of IV Acyclovir
- Hold Lasix and metolazone
HX Chr HFrEF
- stable
- Hold Lasix and Metolazone
HX CAD
HX prior LAD PCI 2015, and patent stents by catheterization in January of 2018.
HLD
- c/w IMN,
- Hi intensity atorvastatin
- Hold Plavix due to bleeding from face zoster rash
HX Prx AF and HX CVA
- c/w Eliquis for now
IDDM
- c/w OP Insulin regime
- add ISS low
Essential Hypertension, controlled
- on carvedilol
HX UQENTIN
- Hold off CPAP for now
DVT Px: on BUSINESS SUPPORT SPECIALIST Eliquis
Full code
IP MS
[2024-10-19] VITALS (10 sets, daily range): BP systolic 98–114; BP diastolic 52–89; BMI 30.8
[2024-10-19 01:06] LABS: Glucose - Point of Care 119 mg/dl (70-99)
[2024-10-19] MEDS: ZOVIRAX INJECTION 266 MG IV (01:56)
[2024-10-19] MEDS: ANCEF 10 IV (06:06)
[2024-10-19 06:25] LABS: Hematocrit 35.4 % (39.0-52.0); Hemoglobin 11.3 g/dL (13.0-18.0); Mean Corp Hgb Conc. 31.9 g/dL (33.0-37.0); Mean Corpuscular Hgb 26.3 pg (27.0-31.0); Mean Corpuscular Volume 82.3 fL (80.0-94.0); Mean Platelet Volume 10.7 fL (7.4-10.4); Platelet Count 198 10^3/uL (130-400); Red Cell Dist. Width 17.9 % (11.5-14.5); White Blood Cell Count 7.7 10^3/uL (4.8-10.8)
[2024-10-19 06:52] LABS: Calcium 9.3 mg/dl (8.4-10.2); Carbon Dioxide 26 mmol/L (22-30); Chloride 92 mmol/L (98-107); Estimated Creatinine Clearance 22 ml/min; Glucose 131 mg/dl (70-99); Potassium 2.9 mmol/L (3.5-5.1); Sodium 132 mmol/L (135-145); eGFR 17.09
[2024-10-19 07:00] LABS: Blood Urea Nitrogen 145 mg/dl (9-20)
[2024-10-19] MEDS: APRESOLINE PO ×2 (07:22→20:41)
[2024-10-19] MEDS: IMDUR (EXTENDED RELEASE) PO (07:28)
[2024-10-19] MEDS: ELIQUIS 5 MG PO ×2 (07:30→20:33)
[2024-10-19] MEDS: PROTONIX 40 MG PO (07:30)
[2024-10-19] MEDS: ZYLOPRIM 300 MG PO (07:30)
[2024-10-19] MEDS: LIPITOR 80 MG PO (07:30)
--- NOTE | 2024-10-19 07:42 | W.PN.HOSP.TC ---
Addendum entered and electronically signed by Keri Bolton MD 10/20/24 08:58:
d/w Ophthal
Original Note:
Today's Communication/Plan
-
see A/P
Assessment / Plan
Assessment / Plan
HPI: 74 y/o male past medical history of CAD, CVA, CHF, CKD, A-fib, and DM who presented with facial rash. Patient describes redness, swelling and scabs on his right face. He denies pain, but notes the area can be itchy at times. He notes bleeding
from the nose which has become more frequent. He notes decreased oral intake. He denies fevers, sweats or chills.
A/P:
# Right Facial Shingles
Continue IV acyclovir
Continue Ancef for possible superimposed bacterial infection
Consult Infectious Disease
Consult Ophthalmology for possible herpes ophthalmicus
# Acute Kidney Injury on CKD IV
SCr 3.8 on admission to 3.6 today; baseline at 2.5
Suspect elevated BUN is related to significant epistaxis
Consult Nephrology
Hold diuretics
Follow BMP
# Coronary Artery Disease s/p LAD Stent in 2016
Hold Plavix due to facial bleeding / epistaxis
# Chronic HFrEF
Diuretics on hold
Monitor Is&Os and Daily Weights
# Paroxysmal Atrial Fibrillation s/p Ablation
Continue Coreg for rate control
Continue Eliquis despite bleeding given history of CVA, monitor Hgb
# Essential Hypertension
Continue Coreg and Hydralazine
# Hyperlipidemia
Continue atorvastatin
# Diabetes mellitus, Type II
Continue Lantus and NovoLog
Monitor sugars and continue coverage insulin
# GERD
Continue Protonix
# Obesity
Encourage weight loss
# Obstructive Sleep Apnea
Hold on CPAP with shingles
# Hx CVA with mild right hemiparesis and left visual deficit
# Hx Non-Sustained Ventricular Tachycardia
DVT proph: Eliquis
Code Status: Full Code
total time 51 min
Anticipated Discharge: > 48 hours
Subjective/Interval History
-
Date of Service: October 19, 2024
Objective Data
-
Labs:
Laboratory Results
10/19/24
06:08
WBC 7.7
Hgb 11.3 L
Hct 35.4 L
Plt Count 198
Sodium 132 L
Potassium 2.9 L
Chloride 92 L
Carbon Dioxide 26
BUN 145 H*
Creatinine 3.6 H
Glucose 131 H
Calcium 9.3
Vital Signs:
Vital Signs
Temp Pulse Resp BP Pulse Ox
36.6 C 72 20 98/67 99
10/19/24 07:36 10/19/24 07:21 10/19/24 07:21 10/19/24 07:22 10/19/24 07:21
I&O
10/18/24 10/19/24 10/20/24
06:59 06:59 06:59
Output Total 840 / 840
Balance -840 / -840
Review of Systems
-
History Source: Patient
EENT: Reports Bloody Nose; Denies Blurry Vision, Eye Pain or Decreased Vision
Physical Exam
-
General: Well Developed, Well Nourished, No Apparent Distress, Comfortable, Conversant and Obese; Negative Respiratory Distress
HEENT: Normocephalic, Atraumatic, Nose Appears Normal and Ears Appear Normal; Negative Oxygen
Respiratory: Clear to Auscultation and Non Labored Respirations; Negative Accessory Resp Muscle Use
Cardiac: Regular Rhythm and S1/S2
GI: Soft, Nontender, Nondistended and Normal Bowel Sounds
Skin: Warm, Dry and Rash (R side of face, did not cross midline )
Neuro: Awake, Alert, Oriented and AO x 3
Psych: Calm and Intact Judgement/Insight
Data Reviewed
-
Labs: Labs Reviewed by me
[2024-10-19 08:45] LABS: Glycohemoglobin (HgbA1c) 6.7 % (4.0-5.6)
[2024-10-19 08:59] LABS: Magnesium 3.1 mg/dl (1.6-2.3)
[2024-10-19] MEDS: KCL 40 MEQ PO (09:15)
[2024-10-19] MEDS: KCL 270 MEQ IV (09:15)
[2024-10-19 09:25] LABS: Glucose - Point of Care 129 mg/dl (70-99)
[2024-10-19] MEDS: NOVOLOG FLEXPEN 40 UNITS SC (09:47)
[2024-10-19] MEDS: NOVOLOG FLEXPEN-HIGH RESISTANCE 1 UNITS SC ×2 (09:47→17:52)
--- NOTE | 2024-10-19 09:49 | CON.ID ---
Consultation
-
Date/Time Consultation Requested: 10/19/2024 0040
Date/Time Consultation Performed: 10/19/2024 0915
Requesting Provider: Susanna Nolasco
Performing Provider: Dr. Allen
Reason for Consultation: V2 facial shingles
Chief Complaint / Past History
History of Present Illness
Johnathan Dumont is a 74-year-old man being evaluated at the request of Susanna Nolasco regarding right V2 facial shingles. History is obtained from chart review, along with patient interview.
The patient has an underlying history of CVA, along with A-fib and is maintained on Plavix and Eliquis. He reports that approximately 2 weeks ago he developed a right facial rash in the cheek area. Around the same time he also developed right
tooth pain. He had seen his dentist several days ago and was supposed to get a tooth extracted, but because of the rash this was delayed. Approximately 3 days ago he started to develop epistaxis which is continued through today. He has bleeding
from both nostrils.
He has no history of shingles or receiving the Shingrix vaccine. He does have a history of childhood chickenpox. He admits to some mild blurry vision, but this is chronic, and has not changed in any way since the initiation of symptomatology. He
denies any facial pain. He denies any lesions on other parts of his body.
Past History
Additional Past Medical History:
Hx CVA (2020)
DM
P A-fib (on Eliquis)
CHF
CAD
HTN
Dyslipidemia
CKD
Additional Past Surgical History:
PPM placement
Left eye surgery
Right ankle surgery
Allergy History:
acetaminophen Allergy (Verified 10/18/24 18:24)
cough
lisinopril Allergy (Verified 10/18/24 18:24)
cough
metformin Allergy (Verified 10/18/24 18:24)
renal failure
Medications Reviewed: Yes
Current Antibiotics:
Acyclovir 800 mg IV every 8 12 hours
Cefazolin 2 g IV every 12 hours
Social History
Tobacco: Non-Smoker
Alcohol: None
Drug: None
Employment: Retired
Family History
Family History: Not Pertinent
Review of Systems
Vital Signs
Temp Pulse Resp BP Pulse Ox
97.8 F 72 20 98/67 99
10/19/24 07:36 10/19/24 07:21 10/19/24 07:21 10/19/24 07:22 10/19/24 07:21
Physical Exam
Physical Exam
Constitutional: No Acute Distress, Comfortable and Non-toxic
Head: Normocephalic and Other (Positive epistaxis)
Eyes: Pupils Equal, Pupils Round, No Conjunctival Hemorrhage and Sclera Anicteric
Oral: Poor Dentition and No Ulcers
Cardiovascular: Regular Rate and S1/S2; Negative S3/S4
Pulmonary: Clear; Negative Wheezes or Rales
Gastrointestinal: Soft and Non Tender
Extremities: Negative Edema, Cyanosis or Erythema
Wound: Other (Crusts noted in a V2 distribution on the right face. No active vesicular lesions)
Neurological: Awake and Alert
Psychological: Calm
Lab / Diagnostic Study Results
10/19/24 06:08
10/19/24 06:08
Abs Immat Gran (auto) 0.0 10^3/uL (0-0.05) 10/18/24 18:34
Absolute Neuts (auto) 5.0 10^3/uL (1.4-6.5) 10/18/24 18:34
Absolute Lymphs (auto) 0.8 10^3/uL (1.2-3.4) L 10/18/24 18:34
Absolute Monos (auto) 0.7 10^3/uL (0.1-0.6) H 10/18/24 18:34
Absolute Basos (auto) 0.1 10^3/uL (0-0.2) 10/18/24 18:34
Immature Gran % 0.3 % (0-0.5) 10/18/24 18:34
Neutrophils % 74.0 % (42.2-75.2) 10/18/24 18:34
Lymphocytes % 12.2 % (20.5-51.1) L 10/18/24 18:34
Monocytes % 9.9 % (1.7-9.3) H 10/18/24 18:34
Eosinophils % 2.4 % (0-6) 10/18/24 18:34
Basophils % 1.2 % (0-2) 10/18/24 18:34
Microbiology Results
Imaging:
10/18/2024 CT facial bones with IV contrast: There is mild skin thickening of the right cheek, asymmetric compared to the left, suggestive of cellulitis. No evidence of focal collection to suggest abscess. There is significant dental caries
involving the left maxillary first premolar. There also appears to be caries involving the anterior aspect of the right maxillary second premolar. Please see full dictation for additional detail. Film personally viewed.
Assessment / Plan
Right facial shingles (V2 distribution)
-Lesions crusted. No active vesicles
Epistaxis
Hx CVA (2020)
DM
P A-fib (on Eliquis)
CHF
CAD
HTN
Dyslipidemia
CKD
Recommendations:
At present, no vesicles are noted. Prior vesicles have completely crusted.
No need for further antivirals at present. Discontinue further acyclovir
Additionally, no evidence of significant erythema or superinfection. Discontinue further cefazolin.
As all vesicles have crusted, no need for further isolation.
Await Ophthalmology evaluation.
Given epistaxis (which patient reports has been going on for 3 days), may consider ENT evaluation
--- NOTE | 2024-10-19 10:30 | WOUNDNOTE ---
WON RN note: Patient admitted with cellulitis of face and acute kidney injury.
See H&P for complete history.
PMH: CAD, CVA, CHF, CKD, A-fib, and DM
Wound Location and type/assessment: Patient admitted with: R side of face shingles, crusted and dry, no drainage. Patient states he keeps having to blow his nose and blood keeps coming out. Patient turned self, no other active shingle lesions on
backside, sacrum and heels intact. L great toe nail with old dried blood, suspect dripped from nose or stubbed toe. Is on Eliquis.
Appetite: Good.
Pressure redistribution devices in place: Can be on Accumax.
Plan: R face recommend wash gently with mild soap and water, open to air.
Updated care plan and will sign off unless needed.
--- NOTE | 2024-10-19 10:45 | EDRN ---
Report received, patient working on eating his breakfast, waiting on bed to be ready
--- NOTE | 2024-10-19 10:48 | W.CON.NEPH ---
Consultation
-
Date/Time Consultation Requested: 10/19/2024 7:30 AM
Date/Time Consultation Performed: 10/19/2024 10:45 AM
Requesting Provider: Dr. Ross
Performing Provider: Dr. Rowe
Reason for Consultation: Acute kidney injury/chronic kidney disease stage IV/hyponatremia
Medical History
-
Chief Complaint: Acute kidney injury/chronic kidney disease stage IV/hyponatremia
History of Present Illness:
The patient is a 74-year-old male with a past medical history of chronic kidney disease stage IV as noted by a creatinine at 2.2 in August 2023. He has a history of diabetes maintained chronically on insulin therapy. He is chronically
anticoagulated with Eliquis in the setting of his paroxysmal atrial fibrillation and has had prior CVA event. He has a history of congestive heart failure and in the outpatient is maintained on Lasix 80 mg twice daily. He presented to the hospital
with a right sided rash on his face with associated erythema edema and scab formation. Apparently the patient also has an infected tooth along the right jaw. He has had also ongoing epistaxis and was noted to have a hemoglobin of 11.3 on admission.
Past Medical History
Hx CVA (2020)
DM
P A-fib (on Eliquis)
CHF
CAD
HTN
Dyslipidemia
CKD 4 (~2.2)
Pacemaker
Social History
Tobacco: Former Smoker
Alcohol: None
Drug: None
Family History
Family History: Not Pertinent
Allergies / Home Medications
Allergy/AdvReac Type Severity Reaction Status Date / Time
acetaminophen Allergy cough Verified 10/18/24 18:24
lisinopril Allergy cough Verified 10/18/24 18:24
metformin Allergy renal Verified 10/18/24 18:24
failure
�Medication �Instructions �Recorded �Confirmed �Type
apixaban 5 mg tablet (Eliquis) 5 mg PO BID #0 tabs 04/19/21 10/18/24 Rx
cholecalciferol (vitamin D3) 50 2,000 units PO DAILY #0 tabs 04/19/21 10/18/24 Rx
mcg (2,000 unit) tablet
clopidogrel 75 mg tablet 75 mg PO DAILY #30 tabs 04/19/21 10/18/24 Rx
hydralazine 10 mg tablet 10 mg PO BID #0 tabs 04/19/21 10/18/24 Rx
isosorbide mononitrate 30 mg 30 mg PO DAILY #0 tabs 04/19/21 10/18/24 Rx
tablet,extended release 24 hr
pantoprazole 40 mg tablet,delayed 40 mg PO DAILY #30 tabs 04/19/21 10/18/24 Rx
release
allopurinol 300 mg tablet 300 mg PO DAILY 07/28/23 10/18/24 History
atorvastatin 80 mg tablet 80 mg PO DAILY 07/28/23 10/18/24 History
carvedilol 25 mg tablet 50 mg PO BID 07/28/23 10/18/24 History
insulin aspart U-100 100 unit/mL 40 - 60 sliding scale dose SC AC 07/28/23 10/18/24 History
(3 mL) subcutaneous pen (Novolog
FlexPen U-100 Insulin aspart)
insulin glargine 100 unit/mL 50 units SC HS 07/28/23 10/18/24 History
subcutaneous solution (Lantus
U-100 Insulin)
furosemide 80 mg tablet (Lasix) 80 mg PO BID #180 tabs 09/09/23 10/18/24 Rx
potassium chloride 20 mEq 40 meq (2 x 20 mEq) PO BID #180 09/09/23 10/18/24 Rx
tablet,extended tabs
release(part/cryst) (Klor-Con M)
magnesium oxide 500 mg PO QPM 10/18/24 10/18/24 History
metolazone 5 mg tablet 5 mg PO MOWEFR 10/18/24 10/18/24 History
Review of Systems
-
History Source: Patient
All other systems: Negative unless noted
Constitutional: Weight Loss
Respiratory: Trouble Breathing (Dyspnea on exertion)
: Other (Nocturia 4 times nightly)
Skin: Other (Right facial rash eruption)
Physical Exam
Vital Signs
Vital Signs
Temp Pulse Resp BP Pulse Ox
97.8 F 72 20 98/67 99
10/19/24 07:36 10/19/24 07:21 10/19/24 07:21 10/19/24 07:22 10/19/24 07:21
Lab Results
10/19/24 06:08
10/19/24 06:08
WBC 7.7 10^3/uL (4.8-10.8) 10/19/24 06:08
RBC 4.30 10^6/uL (4.70-6.10) L 10/19/24 06:08
Hgb 11.3 g/dL (13.0-18.0) L 10/19/24 06:08
Hct 35.4 % (39.0-52.0) L 10/19/24 06:08
Plt Count 198 10^3/uL (130-400) 10/19/24 06:08
Sodium 132 mmol/L (135-145) L 10/19/24 06:08
Potassium 2.9 mmol/L (3.5-5.1) L 10/19/24 06:08
Chloride 92 mmol/L (98-107) L 10/19/24 06:08
Carbon Dioxide 26 mmol/L (22-30) 10/19/24 06:08
BUN 145 mg/dl (9-20) H* 10/19/24 06:08
Creatinine 3.6 mg/dL (0.7-1.3) H 10/19/24 06:08
eGFR 17.09 10/19/24 06:08
Glucose 131 mg/dl (70-99) H 10/19/24 06:08
Calcium 9.3 mg/dl (8.4-10.2) 10/19/24 06:08
Albumin 4.5 g/dl (3.5-5.0) 10/18/24 18:34
Physical Exam
General: AOx3, Nontoxic , NAD
HEENT: PERRL, EOMI, Anicteric, Conjunctivae Clear, Ear/Nose Intact, Hearing Normal, Oropharynx Clear/Moist, Dentition Intact, Facial Symmetry, Neck Supple, Neck: Trachea Midline, No JVD and No Thyromegaly, no Bruits, right facial zoster eruption,
with scabbed bleeding lesion
Respiratory: Clear to auscultation bilaterally with normal lung exersion
Cardiac: S1/S2 and Regular Rate/Rhythm
Breast: Deferred by me
Abdomen: Soft, Nontender, Nondistended, Normal Bowel Sounds and No Hepatosplenomegaly
Rectal: Deferred by Provider
Genito-urinary: No Costovertebral Tenderness
Extremities: No Clubbing, No Cyanosis and No Edema
Skin: Face: Right sided erythematous rash with scabbing
Neuro: Nonfocal/Grossly Intact, CN II-XII (Intact) and Strength (Musculoskeletal exam 5 out of 5 both upper and lower extremities)
Hematologic/Lymphatic: No Cervical Lymphadenopathy, No Submandibular Lymphadenopathy and No Supraclavicular Lymphadenopathy
Psych: Mood/afflect pleasant, Insight/judgement good and Appropriate
Vascular: plus 1 pedal and radial pulses
Data Reviewed
-
Radiology: Report Reviewed by me (CAT scan of facial bones reviewed: Notes cellulitis of right cheek no evidence of abscess multiple dental caries)
Labs: Labs Reviewed by me (bmp , cbc)
Old Records: Reviewed (Reviewed previous labs from date 09/09/2023 BUN 72 creatinine 2.2)
Assessment/Plan
-
Impression:
CRISTIAN
CKD 4 (2.2)
Hyponatremia
Hypokalemia
Right facial zoster eruption
Coronary artery disease with history of stenting 2015
History of congestive heart failure with preserved EF
Paroxysmal atrial fibrillation with history of prior ablation
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
History of nonsustained ventricular tachycardia
History of hypertension
Diabetes
Obstructive sleep
Gout
Plan:
CRISTIAN:
-Likely prerenally mediated in setting of hypotension
-With hold Lasix and replete potassium (80 meq)
-Fluid restriction placed for hyponatremia
-Follow-up urine sodium, urine osmolality,urine creatinine, UA
-Would obtain kidney and bladder ultrasound
-Patient currently hemodynamically labile would provide 1 L of normal saline (completed)
--- NOTE | 2024-10-19 11:01 | CM ---
Patient admitted from home with initial dx of shingles. ID physician recommends opthamology and maybe ENT see patient. spoke to who was at work. She reports patient is independent at home. He has a Rolling walker but does not use it. He has
history of CVA in 2020 and went to [facility] at .
HE uses shower seat and CPAP.
PCP Suzy Arias
PHarmacy: [facility] [address]
NO history of snf, VNA.
Plan home no needs.
--- NOTE | 2024-10-19 11:07 | WOUNDNOTE ---
RIGHT SIDE FACE
--- NOTE | 2024-10-19 11:09 | WOUNDNOTE ---
LEFT GREAT TOE
--- NOTE | 2024-10-19 12:00 | EDRN ---
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
[2024-10-19] MEDS: REFRESH EYE DROPS (PF) 1 DROPS OPHTH ×5 (12:55→22:38)
[2024-10-19] MEDS: POLYSPORIN 1 APPLIC OPHTH ×3 (12:55→20:42)
[2024-10-19] MEDS: REFRESH EYE DROPS (PF) OPHTH ×2 (13:05→16:07)
--- NOTE | 2024-10-19 13:07 | EDRN ---
Patients gown changed, patient reports not hungry for lunch right now as he ate breakfast later, will hold off in giving insulin as he isn't eating right now, call melton in reach, patient provided with more tissues and bucket to put them in
[2024-10-19] MEDS: NSS with KCL 20 MEQ 1000 IV (13:18)
[2024-10-19 13:27] LABS: Glucose - Point of Care 109 mg/dl (70-99)
[2024-10-19] MEDS: NOVOLOG FLEXPEN-HIGH RESISTANCE SC (13:29)
[2024-10-19] MEDS: NOVOLOG FLEXPEN SC ×2 (13:30→18:23)
--- NOTE | 2024-10-19 13:30 | EDRN ---
Informed patient they sent up a meal tray, he still isn't hungry, said maybe he will have a little to drink but not really wanting to eat, did check his blood sugar and was 109, patient states for a blood sugar of 109 and what he planned to have he
did not want to take his insulin, informed patient if he decides to eat or have more to let us know we can give him his insulin, patient understands and call melton in reach.
[2024-10-19 15:32] LABS: Urine Albumin Negative (Neg - Trace); Urine Bilirubin Negative (Negative); Urine Character Clear (Clear); Urine Color Yellow; Urine Glucose Negative (Negative); Urine Ketone Negative (Negative); Urine Leukocyte Negative (Negative); Urine Nitrite Negative (Negative); Urine Occult Blood Negative (Negative); Urine Specific Gravity 1.015 (<1.030); Urine Urobilinogen Negative (Neg - 1+)
[2024-10-19 15:33] LABS: Osmolality Urine 409 mOsm/kg (300-900)
[2024-10-19 15:51] LABS: Protein/creatinine Ratio 0.1; Urine Protein 9 mg/dl; Urine Sodium 15 mmol/L (30-90)
[2024-10-19 17:07] LABS: Glucose - Point of Care 140 mg/dl (70-99)
--- NOTE | 2024-10-19 18:31 | CON.MD ---
Consultation - Medical
-
Chief complaint: Epistaxis, shingles of face
History of present illness: This is a 74-year-old gentleman with a history of CVA who is chronically anticoagulated with Plavix and Eliquis. He developed an eruption on his right face about 7 days ago which has itched at times. It is not painful.
It appears to be consistent with a shingles eruption. He has been bleeding from the right eyelid margin as well as from the anterior nose. Bleeding has not been profuse but has been significant and he has developed some large clots within the nose
and has some bloody postnasal drip. The patient has not had problems with the nose in the past. He has not had shingles before but his brother and sister had shingles and they had pain with shingles. I was asked to see the patient regarding the
eruption on his face and the bleeding from his nose.
Past medical history:
Medical problems: Acute kidney injury, cellulitis of face, hypomagnesemia, right hemiparesis, cerebrovascular accident, paroxysmal atrial fibrillation, hyperlipidemia, type 2 diabetes mellitus with diabetic chronic kidney disease, obstructive sleep
apnea, hypertensive heart and chronic kidney disease with heart failure and stage I through stage IV chronic kidney disease or chronic kidney disease, coronary artery disease, gout, cardiomyopathy, essential hypertension, pure hypercholesterolemia,
iron deficiency, pulmonary hypertension,
Allergies: Acetaminophen, lisinopril, metformin,
Home medications: Allopurinol 300 mg p.o. daily, atorvastatin 80 mg p.o. daily, carvedilol 50 mg p.o. twice daily, cholecalciferol 2000 units p.o. daily, clopidogrel 75 mg p.o. daily, Eliquis 5 mg p.o. twice daily, Lasix 80 mg p.o. twice daily,
hydralazine 10 mg p.o. twice daily, insulin aspart U�140-60 sliding scale dose, insulin glargine 50 units SQ at bedtime, isosorbide mononitrate 30 mg p.o. daily, magnesium oxide 50 mg p.o. every afternoon, metolazone 5 mg p.o. Thursday
Thursday, pantoprazole 40 mg p.o. daily, potassium chloride 40 mEq p.o. twice daily
Hospitalizations: The patient is currently hospitalized for what appears to be shingles of the right face and bleeding from the nose
Past surgical history: Noncontributory
Family history: Asked and is noncontributory for this problem
Review of systems: Positive for epistaxis, positive for bleeding from face and right lower eyelid, negative for chest pain, negative for respiratory stress,
Physical examination:
Head, atraumatic and normocephalic
Eyes: The patient has right lower eyelid eruption with bleeding although not active. Dried blood is present on the right face, extraocular movements are intact, pupils are equal and reactive to light,
Ears: Normal to examination
Nose: Dried blood within the anterior nose bilaterally with a small amount of bleeding on movement of the dried blood within the nose, no polyps or tumors seen,
Oral cavity, some old blood in the nasopharynx without active bleeding
Neck: Supple without adenopathy
Cranial nerves II through XII intact bilaterally
Salivary glands: Normal to examination
Thyroid gland: Normal to examination
Skin: Right facial and right lower eyelid irruption with old blood on skin but no active bleeding
Procedure: Bilateral cautery of the septum for epistaxis
The patient's septum was cauterized bilaterally using silver nitrate with extensive cautery performed. The patient tolerated this well with 5 separate passes of silver nitrate. Vitamin A&E ointment was placed into the nose bilaterally. The
patient tolerated the procedure well.
Impression/plan: The patient has an eruption present on the right face and right lower eyelid which may represent shingles. He has had some bleeding from the area as well as some bleeding from the anterior nose on the septum. The nose was
cauterized with silver nitrate and the patient tolerated this well. Vitamin A&E ointment was placed into the nose and I asked the patient to place more in his nose on a fairly regular basis to keep it from drying. I anticipate the bleeding will
stop when the eruption heals which is generally 2-4 weeks. I will plan on seeing the patient back as needed.
,
[2024-10-19 21:32] LABS: Glucose - Point of Care 253 mg/dl (70-99)
[2024-10-19] MEDS: LANTUS 0.4 UNITS SC (22:38)
[2024-10-20] MEDS: POLYSPORIN 1 APPLIC OPHTH ×5 (01:15→16:29)
[2024-10-20] MEDS: REFRESH EYE DROPS (PF) OPHTH ×5 (01:59→16:10)
[2024-10-20] MEDS: REFRESH EYE DROPS (PF) 1 DROPS OPHTH ×5 (05:15→20:32)
[2024-10-20 06:00] VITALS: BMI 30.6
[2024-10-20 06:42] LABS: Hematocrit 32.7 % (39.0-52.0); Hemoglobin 10.4 g/dL (13.0-18.0); Mean Corp Hgb Conc. 31.8 g/dL (33.0-37.0); Mean Corpuscular Hgb 25.8 pg (27.0-31.0); Mean Corpuscular Volume 81.1 fL (80.0-94.0); Mean Platelet Volume 10.4 fL (7.4-10.4); Platelet Count 189 10^3/uL (130-400); Red Blood Cell Count 4.03 10^6/uL (4.70-6.10); Red Cell Dist. Width 17.9 % (11.5-14.5); White Blood Cell Count 5.2 10^3/uL (4.8-10.8)
[2024-10-20 07:10] LABS: Calcium 9.1 mg/dl (8.4-10.2); Carbon Dioxide 20 mmol/L (22-30); Chloride 95 mmol/L (98-107); Estimated Creatinine Clearance 26 ml/min; Glucose 144 mg/dl (70-99); Magnesium 2.9 mg/dl (1.6-2.3); Potassium 3.7 mmol/L (3.5-5.1); Sodium 129 mmol/L (135-145); eGFR 20.44
[2024-10-20 07:21] LABS: Blood Urea Nitrogen 128 mg/dl (9-20)
[2024-10-20 07:40] VITALS: BP 105/70
[2024-10-20 07:45] VITALS: BMI 30.6
[2024-10-20] MEDS: PROTONIX 40 MG PO (08:26)
[2024-10-20] MEDS: ELIQUIS 5 MG PO ×2 (08:26→20:33)
[2024-10-20] MEDS: LIPITOR 80 MG PO (08:26)
[2024-10-20] MEDS: ZYLOPRIM 300 MG PO (08:27)
[2024-10-20] MEDS: APRESOLINE PO (08:27)
[2024-10-20] MEDS: IMDUR (EXTENDED RELEASE) PO (08:27)
[2024-10-20] MEDS: COREG PO (08:27)
[2024-10-20 08:38] LABS: Glucose - Point of Care 141 mg/dl (70-99)
--- NOTE | 2024-10-20 08:46 | W.PN.HOSP.TC ---
Today's Communication/Plan
-
see A/P
Assessment / Plan
Assessment / Plan
HPI: 74 y/o male past medical history of CAD, CVA, CHF, CKD, A-fib, and DM who presented with facial rash. Patient describes redness, swelling and scabs on his right face. He denies pain, but notes the area can be itchy at times. He notes bleeding
from the nose which has become more frequent. He notes decreased oral intake. He denies fevers, sweats or chills.
A/P:
# Right Facial Shingles in the V2 distribution
lesions have crusted
No further need for antiviral, off acyclovir
no evidence of significant erythema or superinfection. Discontinue further cefazolin.
Appreciate ID input
Cornea not involved per ophth, cont bacitracin ointment b.i.d. and refresh eye drop
# Acute Kidney Injury on CKD IV
SCr 3.8 on admission to 3.1 today; baseline at 2.5
Suspect elevated BUN is related to significant epistaxis
Nephrology on board
Hold diuretics
Follow BMP
# Epistasis
ENT cauterized bleeding areas in the nose
cont to monitor
# Hyponatremia
# Coronary Artery Disease s/p LAD Stent in 2016
Hold Plavix due to facial bleeding / epistaxis
# Chronic HFrEF
Diuretics on hold
Monitor Is&Os and Daily Weights
# Paroxysmal Atrial Fibrillation s/p Ablation
Continue Coreg for rate control
Continue Eliquis despite bleeding given history of CVA
cont to monitor Hgb
# Essential Hypertension
Continue Coreg but decrease dose, with hold parameter
cont Hydralazine, with hold parameter
# Hyperlipidemia
Continue atorvastatin
# Diabetes mellitus, Type II
Continue Lantus and NovoLog
Monitor sugars and continue coverage insulin
# GERD
Continue Protonix
# Obesity
Encourage weight loss
# Obstructive Sleep Apnea
Hold on CPAP with shingles
# Hx CVA with mild right hemiparesis and left visual deficit
# Hx Non-Sustained Ventricular Tachycardia
DVT proph: Eliquis
Code Status: Full Code
Anticipated Discharge: 24 - 48 hours
Subjective/Interval History
-
Date of Service: October 20, 2024
Objective Data
-
Labs:
Laboratory Results
10/20/24
05:48
WBC 5.2
Hgb 10.4 L
Hct 32.7 L
Plt Count 189
Sodium 129 L
Potassium 3.7 D
Chloride 95 L
Carbon Dioxide 20 L
BUN 128 H*
Creatinine 3.1 H
Glucose 144 H
Calcium 9.1
Vital Signs:
Vital Signs
Temp Pulse Resp BP Pulse Ox
36.6 C 80 16 105/70 94
10/20/24 07:40 10/20/24 08:27 10/20/24 07:40 10/20/24 08:27 10/20/24 07:40
I&O
10/19/24 10/20/24 10/21/24
06:59 06:59 06:59
Intake Total 1000 / 1000
Output Total 840 / 840 1175 / 1175
Balance -840 / -840 -175 / -175
Review of Systems
-
History Source: Patient
EENT: Reports Bloody Nose (much resolved ); Denies Blurry Vision, Eye Pain or Decreased Vision
Physical Exam
-
General: Well Developed, Well Nourished, No Apparent Distress, Comfortable, Conversant and Obese; Negative Respiratory Distress
HEENT: Normocephalic, Atraumatic, Nose Appears Normal and Ears Appear Normal; Negative Oxygen
Respiratory: Clear to Auscultation and Non Labored Respirations; Negative Accessory Resp Muscle Use
Cardiac: Regular Rhythm and S1/S2
GI: Soft, Nontender, Nondistended and Normal Bowel Sounds
Skin: Warm, Dry and Rash (R side of face, did not cross midline )
Neuro: Awake, Alert, Oriented and AO x 3
Psych: Calm and Intact Judgement/Insight
Data Reviewed
-
Labs: Labs Reviewed by me
[2024-10-20] MEDS: NOVOLOG FLEXPEN 40 UNITS SC ×2 (10:14→13:19)
[2024-10-20] MEDS: NOVOLOG FLEXPEN-HIGH RESISTANCE 1 UNITS SC (10:14)
--- NOTE | 2024-10-20 11:14 | CM ---
Patient seen at bedside. Patient was given advance directive information and patient indicated that he did not have any other concerns at this time. CM will continue to follow for discharge planning needs.
Plan; home with no needs vs home with VN
[2024-10-20 11:23] LABS: Glucose - Point of Care 223 mg/dl (70-99)
[2024-10-20] MEDS: NOVOLOG FLEXPEN-HIGH RESISTANCE 4 UNITS SC (13:19)
--- NOTE | 2024-10-20 14:53 | W.PN.NEPH.PH ---
Today's Communication / Plan
-
Check kidney and bladder ultrasound
Isotonic IV fluids
Assessment/Plan
-
Impression:
CRISTIAN (154/3.8)
CKD 4 (2.2)
Hyponatremia
Hypokalemia
Right facial zoster eruption
Coronary artery disease with history of stenting 2015
History of congestive heart failure with preserved EF
Paroxysmal atrial fibrillation with history of prior ablation
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
History of nonsustained ventricular tachycardia
History of hypertension
Diabetes
Obstructive sleep
Gout
Plan:
CRISTIAN:
-Sodium dropping to 129, metabolic acidosis worsening, BUN improved to 128 with creatinine improved to 3.1
-Likely prerenally mediated in setting of hypotension
-Withholding Lasix
-Fluid restriction placed for hyponatremia: Tighten to 50 ounces daily
-UA bland: up/ucr: 100mg, FeNa less then 1%
-Would obtain kidney and bladder ultrasound
-will continue with IVFs to be provided
-
-
Date of Service: October 20, 2024
CC / HPI / ROS
-
Chief Complaint:
Acute kidney injury
History of Present Illness:
Creatinine improved to 3.1
Hemodynamically labile
BUN 128
Review of Systems:
nonoliguric
facial rash
no chest pain
no resting sob but noted with exertion
weights unchanged
Labs
-
Labs:
WBC 5.2 10^3/uL (4.8-10.8) 10/20/24 05:48
RBC 4.03 10^6/uL (4.70-6.10) L 10/20/24 05:48
Hgb 10.4 g/dL (13.0-18.0) L 10/20/24 05:48
Hct 32.7 % (39.0-52.0) L 10/20/24 05:48
Plt Count 189 10^3/uL (130-400) 10/20/24 05:48
Sodium 129 mmol/L (135-145) L 10/20/24 05:48
Potassium 3.7 mmol/L (3.5-5.1) D 10/20/24 05:48
Chloride 95 mmol/L (98-107) L 10/20/24 05:48
Carbon Dioxide 20 mmol/L (22-30) L 10/20/24 05:48
BUN 128 mg/dl (9-20) H* 10/20/24 05:48
Creatinine 3.1 mg/dL (0.7-1.3) H 10/20/24 05:48
eGFR 20.44 10/20/24 05:48
Glucose 144 mg/dl (70-99) H 10/20/24 05:48
Calcium 9.1 mg/dl (8.4-10.2) 10/20/24 05:48
Albumin 4.5 g/dl (3.5-5.0) 10/18/24 18:34
Physical Exam
-
Vital Signs:
Vital Signs
Temp Pulse Resp BP Pulse Ox
97.9 F 80 16 105/70 94
10/20/24 07:40 10/20/24 08:27 10/20/24 07:40 10/20/24 08:27 10/20/24 07:40
Cardiovascular:: Regular rate and rhythm
Respiratory:: Bilateral: Coarse
Lung Excursion:: Normal
Abdomen:: Nontender and Soft
Bowel Sounds:: Normal
Extremity Edema:: None: Bilateral:
Hopkins Catheter: No
--- NOTE | 2024-10-20 15:54 | W.PN.ID1 ---
Date of Service
Date of Service: October 20, 2024
Today's Communication
Sign off
Assessment / Plan
Right facial shingles (V2 distribution)
-Lesions crusted. No active vesicles
Epistaxis
Hx CVA (2020)
DM
P A-fib (on Eliquis)
CHF
CAD
HTN
Dyslipidemia
CKD
Recommendations:
At present, no vesicles are noted. Prior vesicles have completely crusted.
No need for further antivirals at present. Acyclovir previously discontinued.
Additionally, no evidence of significant erythema or superinfection. Cefazolin previously discontinued.
As all vesicles have crusted, no need for further isolation.
Stable from a Infectious Disease standpoint.
Little more to offer.
Will see again at your request.
Chief Complaint
-: Other (Right facial shingles.)
Subjective / Review of Systems
Patient seen and examined. Bleeding has essentially stopped.
Review of Systems: No Fever and No Chills
Vital Signs / Physical Exam
Vital Signs
Vital Signs
Temp Pulse Resp BP Pulse Ox
97.9 F 80 16 105/70 94
10/20/24 07:40 10/20/24 08:27 10/20/24 07:40 10/20/24 08:27 10/20/24 07:40
Physical Exam
Constitutional: No Acute Distress and Comfortable
Eyes: No Conjunctival Hemorrhage
Cardiovascular: S1/S2; Negative S3/S4
Pulmonary: Non Labored
Wound: Other (Facial area with dried blood, and prior crusts. No active vesicles. No significant erythema.)
Neurological: Awake and Alert
Objective Data
Lab Data
Lab Results
10/20/24 05:48
10/20/24 05:48
Estimated Creat Clear 26 ml/min 10/20/24 05:48
Total Bilirubin 1.4 mg/dl (0.2-1.3) H 10/18/24 18:34
AST 16 U/L (17-59) L 10/18/24 18:34
ALT 10 U/L (0-50) 10/18/24 18:34
Alkaline Phosphatase 102 U/L (38-126) 10/18/24 18:34
Most recent labs reviewed.
Imaging:
10/18/2024 CT facial bones with IV contrast: There is mild skin thickening of the right cheek, asymmetric compared to the left, suggestive of cellulitis. No evidence of focal collection to suggest abscess. There is significant dental caries
involving the left maxillary first premolar. There also appears to be caries involving the anterior aspect of the right maxillary second premolar. Please see full dictation for additional detail. Film personally viewed.
[2024-10-20] MEDS: NSS 1000 IV (16:25)
[2024-10-20 17:27] LABS: Glucose - Point of Care 40 mg/dl (70-99)
[2024-10-20] MEDS: DEXTROSE 50% SYRINGE 12.5 GRAMS IV (17:28)
[2024-10-20] MEDS: NOVOLOG FLEXPEN SC (17:33)
[2024-10-20] MEDS: NOVOLOG FLEXPEN-HIGH RESISTANCE SC (17:34)
[2024-10-20 17:44] LABS: Glucose - Point of Care 108 mg/dl (70-99)
[2024-10-20 19:32] LABS: Glucose - Point of Care 100 mg/dl (70-99)
[2024-10-20 20:21] VITALS: BP 119/73
[2024-10-20 21:47] LABS: Glucose - Point of Care 137 mg/dl (70-99)
[2024-10-20] MEDS: APRESOLINE 10 MG PO (23:48)
[2024-10-20] MEDS: COREG 25 MG PO (23:48)
[2024-10-21] MEDS: POLYSPORIN OPHTH ×2 (00:19→03:52)
[2024-10-21] MEDS: REFRESH EYE DROPS (PF) OPHTH ×6 (00:20→21:13)
[2024-10-21] MEDS: LANTUS SC (00:21)
[2024-10-21] MEDS: REFRESH EYE DROPS (PF) 1 DROPS OPHTH ×7 (00:24→21:22)
[2024-10-21] MEDS: LANTUS 0.2 UNITS SC ×2 (00:25→21:31)
[2024-10-21] MEDS: POLYSPORIN 1 APPLIC OPHTH ×5 (00:25→21:23)
[2024-10-21 03:15] LABS: Glucose - Point of Care 152 mg/dl (70-99)
[2024-10-21] MEDS: NSS 1000 IV (03:51)
[2024-10-21 05:30] LABS: Hematocrit 32.3 % (39.0-52.0); Hemoglobin 10.5 g/dL (13.0-18.0); Mean Corp Hgb Conc. 32.5 g/dL (33.0-37.0); Mean Corpuscular Hgb 26.3 pg (27.0-31.0); Mean Platelet Volume 10.1 fL (7.4-10.4); Platelet Count 189 10^3/uL (130-400); Red Blood Cell Count 3.99 10^6/uL (4.70-6.10); Red Cell Dist. Width 17.7 % (11.5-14.5); White Blood Cell Count 7.2 10^3/uL (4.8-10.8)
[2024-10-21 05:59] LABS: Blood Urea Nitrogen 107 mg/dl (9-20); Calcium 9.5 mg/dl (8.4-10.2); Carbon Dioxide 24 mmol/L (22-30); Chloride 98 mmol/L (98-107); Estimated Creatinine Clearance 34 ml/min; Glucose 152 mg/dl (70-99); Potassium 3.9 mmol/L (3.5-5.1); Sodium 132 mmol/L (135-145); eGFR 29.25
[2024-10-21 06:00] VITALS: BMI 30.9
[2024-10-21 07:27] VITALS: BP 116/70
[2024-10-21 07:52] LABS: Glucose - Point of Care 140 mg/dl (70-99)
[2024-10-21] MEDS: COREG 25 MG PO ×2 (08:31→21:28)
[2024-10-21] MEDS: ELIQUIS 5 MG PO ×2 (08:31→21:23)
[2024-10-21] MEDS: LIPITOR 80 MG PO (08:32)
[2024-10-21] MEDS: APRESOLINE PO ×2 (08:32→08:42)
[2024-10-21] MEDS: PROTONIX 40 MG PO (08:32)
[2024-10-21] MEDS: IMDUR (EXTENDED RELEASE) PO ×2 (08:32→08:42)
[2024-10-21] MEDS: NOVOLOG FLEXPEN-HIGH RESISTANCE 1 UNITS SC (08:33)
[2024-10-21] MEDS: NOVOLOG FLEXPEN 40 UNITS SC ×2 (08:33→12:51)
[2024-10-21] MEDS: ZYLOPRIM 300 MG PO (08:33)
--- NOTE | 2024-10-21 10:10 | CM ---
Patient seen at bedside. Patient states he wants to go home but is complaining of pain in facial areas affected by the shingles. Patient declining any needs for discharge. CM will continue to follow for discharge planning needs.
Plan; home with no needs. watch for VN needs
--- NOTE | 2024-10-21 10:20 | W.PN.NEPH.PH ---
Today's Communication / Plan
-
cotn IVF
await renal US
Assessment/Plan
-
Impression:
CRISTIAN (154/3.8)
CKD 4 (2.2)
Hyponatremia
Hypokalemia
Right facial zoster eruption
Coronary artery disease with history of stenting 2015
History of congestive heart failure with preserved EF
Paroxysmal atrial fibrillation with history of prior ablation
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
History of nonsustained ventricular tachycardia
History of hypertension
Diabetes
Obstructive sleep
Gout
Plan:
CRISTIAN: likely prerenal, FENA low, bland UA
improving renal function cr down to 2.3, BUN 107
sodium better at 132 too
cont IVF another day and await renal US
cont to Withhold Lasix and maintain FR
BP stable
-
-
Date of Service: October 21, 2024
CC / HPI / ROS
-
Chief Complaint:
Acute kidney injury
History of Present Illness:
Creatinine improved to 2.3
Hemodynamically better
BUN 107 better
wt same
Review of Systems:
nonoliguric
facial rash
no chest pain
no resting sob
Labs
-
Labs:
WBC 7.2 10^3/uL (4.8-10.8) 10/21/24 05:08
RBC 3.99 10^6/uL (4.70-6.10) L 10/21/24 05:08
Hgb 10.5 g/dL (13.0-18.0) L 10/21/24 05:08
Hct 32.3 % (39.0-52.0) L 10/21/24 05:08
Plt Count 189 10^3/uL (130-400) 10/21/24 05:08
Sodium 132 mmol/L (135-145) L 10/21/24 05:08
Potassium 3.9 mmol/L (3.5-5.1) 10/21/24 05:08
Chloride 98 mmol/L (98-107) 10/21/24 05:08
Carbon Dioxide 24 mmol/L (22-30) 10/21/24 05:08
BUN 107 mg/dl (9-20) H* 10/21/24 05:08
Creatinine 2.3 mg/dL (0.7-1.3) H 10/21/24 05:08
eGFR 29.25 10/21/24 05:08
Glucose 152 mg/dl (70-99) H 10/21/24 05:08
Calcium 9.5 mg/dl (8.4-10.2) 10/21/24 05:08
Albumin 4.5 g/dl (3.5-5.0) 10/18/24 18:34
Physical Exam
-
Vital Signs:
Vital Signs
Temp Pulse Resp BP Pulse Ox
97.5 F 82 16 116/70 97
10/21/24 07:27 10/21/24 08:31 10/21/24 07:27 10/21/24 08:31 10/21/24 07:27
Lung Excursion:: Normal
Abdomen:: Nontender and Soft
Extremity Edema:: None: Bilateral:
Hopkins Catheter: No
Other Findings::
facial rash=-crusted right face
--- NOTE | 2024-10-21 10:31 | W.PN.HOSP.TC ---
Addendum entered and electronically signed by Keri Bolton MD 10/21/24 17:29:
noted mild hypoglycemia,
reduce aspart AC from 40 to 10 units AC, adjust Lantus from 40 units HS to 20 units HS
cont ISS coverage and accucheck
Addendum entered and electronically signed by Keri Bolton MD 10/21/24 15:48:
Kidney US unrevealing: No evidence of renal collecting system dilatation bilaterally. Confirmation of bilateral ureteral jets. Small bilateral simple renal cysts. Large volume urinary bladder postvoid residual, as detailed above.
Start bladder scan for finding of large volume bladder postvoid residual.
Original Note:
Today's Communication/Plan
-
kidney US
Monitor SCr/ renal function
Assessment / Plan
Assessment / Plan
HPI: 74 y/o male past medical history of CAD, CVA, CHF, CKD, A-fib, and DM who presented with facial rash. Patient describes redness, swelling and scabs on his right face. He denies pain, but notes the area can be itchy at times. He notes bleeding
from the nose which has become more frequent. He notes decreased oral intake. He denies fevers, sweats or chills.
A/P:
# Right Facial Shingles in the V2 distribution
lesions have crusted, hence no need for further antiviral; off acyclovir
no evidence of significant erythema or superinfection. Discontinued cefazolin.
Appreciate ID input
Cornea not involved per ophth, cont bacitracin ointment b.i.d. and refresh eye drop
# Acute Kidney Injury on CKD IV
SCr 3.8 on admission to 2.3 today; baseline at 2.5
Check kidney bladder US
Stop further IVF
Monitor SCr off further IVF
Cont to hold diuretics
Nephrology on board
# Epistasis, resolved
ENT cauterized bleeding areas in the nose. Bleeding has resolved
# Hyponatremia, mild and improving
# Coronary Artery Disease s/p LAD Stent in 2016
Hold Plavix due to facial bleeding / epistaxis
# Chronic HFrEF
Diuretics on hold
Monitor Is&Os and Daily Weights
# Paroxysmal Atrial Fibrillation s/p Ablation
Continue Coreg for rate control
Continue Eliquis despite bleeding given history of CVA
cont to monitor Hgb
# Essential Hypertension
Continue Coreg but decrease dose, with hold parameter
cont Hydralazine, with hold parameter
# Hyperlipidemia
Continue atorvastatin
# Diabetes mellitus, Type II
Continue Lantus and NovoLog
Monitor sugars and continue coverage insulin
# GERD
Continue Protonix
# Obesity
Encourage weight loss
# Obstructive Sleep Apnea
Hold on CPAP with shingles
# Hx CVA with mild right hemiparesis and left visual deficit
# Hx Non-Sustained Ventricular Tachycardia
DVT proph: Eliquis
Code Status: Full Code
DW Renal
Anticipated Discharge: 24 - 48 hours
Subjective/Interval History
-
Date of Service: October 21, 2024
Objective Data
-
Labs:
Laboratory Results
10/21/24
05:08
WBC 7.2
Hgb 10.5 L
Hct 32.3 L
Plt Count 189
Sodium 132 L
Potassium 3.9
Chloride 98
Carbon Dioxide 24
BUN 107 H*
Creatinine 2.3 H
Glucose 152 H
Calcium 9.5
Vital Signs:
Vital Signs
Temp Pulse Resp BP Pulse Ox
36.4 C 82 16 116/70 97
10/21/24 07:27 10/21/24 08:31 10/21/24 07:27 10/21/24 08:31 10/21/24 07:27
I&O
10/20/24 10/21/24 10/22/24
06:59 06:59 06:59
Intake Total 1000 / 1000 480 / 480 480 / 480
Output Total 1175 / 1175 1275 / 1275
Balance -175 / -175 480 / 480 -795 / -795
Review of Systems
-
History Source: Patient
EENT: Denies Blurry Vision, Eye Pain, Decreased Vision or Bloody Nose (resolved )
Physical Exam
-
General: Well Developed, Well Nourished, No Apparent Distress, Comfortable, Conversant and Obese; Negative Respiratory Distress
HEENT: Normocephalic, Atraumatic, Nose Appears Normal and Ears Appear Normal; Negative Oxygen
Respiratory: Clear to Auscultation and Non Labored Respirations; Negative Accessory Resp Muscle Use
Cardiac: Regular Rhythm and S1/S2
GI: Soft, Nontender, Nondistended and Normal Bowel Sounds
Skin: Warm, Dry and Rash (R side of face, did not cross midline )
Neuro: Awake, Alert, Oriented and AO x 3
Psych: Calm and Intact Judgement/Insight
Data Reviewed
-
Labs: Labs Reviewed by me
[2024-10-21 12:55] LABS: Glucose - Point of Care 122 mg/dl (70-99)
[2024-10-21] MEDS: NOVOLOG FLEXPEN-HIGH RESISTANCE SC ×2 (12:56→17:56)
[2024-10-21 15:03] VITALS: BP 123/76
[2024-10-21 17:02] LABS: Glucose - Point of Care 65 mg/dl (70-99)
[2024-10-21 17:10] LABS: Glucose - Point of Care 110 mg/dl (70-99)
--- NOTE | 2024-10-21 17:26 | PTCARENOTE ---
Glucose decreased, made aware, new order provided, see MAR.
[2024-10-21] MEDS: NOVOLOG FLEXPEN SC (17:57)
--- NOTE | 2024-10-21 18:08 | PTCARENOTE ---
MD inquired about continuation of fluids, no new orders provided.
[2024-10-21 19:16] LABS: Glucose - Point of Care 86 mg/dl (70-99)
[2024-10-21 21:26] LABS: Glucose - Point of Care 118 mg/dl (70-99)
[2024-10-21] MEDS: APRESOLINE 10 MG PO (21:28)
[2024-10-21 23:00] VITALS: BP 108/55
[2024-10-22] MEDS: REFRESH EYE DROPS (PF) OPHTH ×4 (00:41→06:01)
[2024-10-22] MEDS: POLYSPORIN OPHTH ×2 (00:41→04:02)
[2024-10-22 02:23] LABS: Glucose - Point of Care 133 mg/dl (70-99)
[2024-10-22 06:00] VITALS: BMI 31.3
--- NOTE | 2024-10-22 06:21 | PTCARENOTE ---
Addendum entered by Helen Burgos RN 10/22/24 06:25:
Pt slept through shift with no s/s of distress assessed. Pt denies pain and SOB. Will continue to monitor.
Original Note:
Pt slept threw shift with no s/s of distress assessed. BS stable as documented. Pt denies pain and SOB. Will continue to monitor.
[2024-10-22 07:39] VITALS: BP 122/70
[2024-10-22 07:39] LABS: Hematocrit 32.4 % (39.0-52.0); Mean Corp Hgb Conc. 30.9 g/dL (33.0-37.0); Mean Corpuscular Hgb 25.3 pg (27.0-31.0); Mean Corpuscular Volume 81.8 fL (80.0-94.0); Mean Platelet Volume 10.1 fL (7.4-10.4); Platelet Count 200 10^3/uL (130-400); Red Blood Cell Count 3.96 10^6/uL (4.70-6.10); Red Cell Dist. Width 18.2 % (11.5-14.5); White Blood Cell Count 6.5 10^3/uL (4.8-10.8)
[2024-10-22 07:54] LABS: Blood Urea Nitrogen 87 mg/dl (9-20); Calcium 9.5 mg/dl (8.4-10.2); Carbon Dioxide 23 mmol/L (22-30); Chloride 97 mmol/L (98-107); Estimated Creatinine Clearance 38 ml/min; Glucose 160 mg/dl (70-99); Potassium 4.5 mmol/L (3.5-5.1); Sodium 131 mmol/L (135-145); eGFR 32.62
[2024-10-22 07:57] LABS: Glucose - Point of Care 162 mg/dl (70-99)
[2024-10-22] MEDS: COREG 25 MG PO ×2 (08:26→19:41)
[2024-10-22] MEDS: PROTONIX 40 MG PO (08:26)
[2024-10-22] MEDS: IMDUR (EXTENDED RELEASE) 30 MG PO (08:26)
[2024-10-22] MEDS: REFRESH EYE DROPS (PF) 1 DROPS OPHTH ×9 (08:26→22:25)
[2024-10-22] MEDS: LIPITOR 80 MG PO (08:26)
[2024-10-22] MEDS: ELIQUIS 5 MG PO ×2 (08:26→19:35)
[2024-10-22] MEDS: ZYLOPRIM 300 MG PO (08:27)
[2024-10-22] MEDS: NOVOLOG FLEXPEN-HIGH RESISTANCE 2 UNITS SC ×2 (08:27→17:37)
[2024-10-22] MEDS: APRESOLINE 10 MG PO (08:27)
[2024-10-22] MEDS: NOVOLOG FLEXPEN 10 UNITS SC ×3 (08:27→17:37)
[2024-10-22] MEDS: POLYSPORIN 1 APPLIC OPHTH ×4 (08:28→19:42)
[2024-10-22 11:42] LABS: Glucose - Point of Care 238 mg/dl (70-99)
[2024-10-22] MEDS: NOVOLOG FLEXPEN-HIGH RESISTANCE 4 UNITS SC (12:44)
[2024-10-22 15:18] VITALS: BP 117/62
--- NOTE | 2024-10-22 15:43 | W.PN.HOSP.TC ---
Today's Communication/Plan
-
Doing well, likely dc tomorrow.
Assessment / Plan
Assessment / Plan
74 y/o male past medical history of:
CAD,
CVA,
CHF,
CKD,
A-fib,
DM
presented with facial rash. Patient describes redness, swelling and scabs on his right face. He denies pain, but notes the area can be itchy at times. He notes bleeding from the nose which has become more frequent. He notes decreased oral intake.
He denies fevers, sweats or chills.
A/P: Recovering well, likely ok for DC tomorrow.
1. Right Facial Shingles in the V2 distribution
lesions have crusted, hence no need for further antiviral; off acyclovir
no evidence of significant erythema or superinfection. Discontinued cefazolin.
Appreciate ID input
Cornea not involved per ophth, cont bacitracin ointment b.i.d. and refresh eye drop
2. Acute Kidney Injury on CKD IV
SCr 3.8 on admission to 2.1 today; baseline at 2.5
Checked kidney bladder US
Stop further IVF
Monitor SCr off further IVF
Cont to hold diuretics
Nephrology on board
3. Epistasis, resolved
ENT cauterized bleeding areas in the nose.
Bleeding has resolved
4. Hyponatremia, mild and improving
5. Coronary Artery Disease s/p LAD Stent in 2016
Hold Plavix due to facial bleeding / epistaxis
6. Chronic HFrEF - Diuretics on hold
Monitor Is&Os and Daily Weights
7. Paroxysmal Atrial Fibrillation s/p Ablation
Continue Coreg for rate control
Continue Eliquis despite bleeding given history of CVA
cont to monitor Hgb
8. Essential Hypertension
Continue Coreg but decreased dose, with hold parameter
cont Hydralazine, with hold parameter
9. Hyperlipidemia - Continue atorvastatin
10. Diabetes mellitus, Type II
Continue Lantus and NovoLog
Monitor sugars and continue coverage insulin
11. GERD - Continue Protonix
12. Obesity - Encourage weight loss
13. Obstructive Sleep Apnea - Hold on CPAP with shingles
14. Hx CVA with mild right hemiparesis and left visual deficit
15. Hx Non-Sustained Ventricular Tachycardia
DVT proph: Eliquis
Code Status: Full Code
DW Renal
Anticipated Discharge: Within 24 hours
Subjective/Interval History
-
Date of Service: October 22, 2024
Feeling well today
Objective Data
-
Labs:
Laboratory Results
10/22/24
07:23
WBC 6.5
Hgb 10.0 L
Hct 32.4 L
Plt Count 200
Sodium 131 L
Potassium 4.5
Chloride 97 L
Carbon Dioxide 23
BUN 87 H
Creatinine 2.1 H
Glucose 160 H
Calcium 9.5
Vital Signs:
Vital Signs
Temp Pulse Resp BP Pulse Ox
98.1 F 77 17 117/62 96
10/22/24 15:18 10/22/24 15:18 10/22/24 15:18 10/22/24 15:18 10/22/24 15:18
I&O
10/21/24 10/22/24 10/23/24
06:59 06:59 07:59
Intake Total 480 / 480 1380 / 1380
Output Total 1675 / 1675
Balance 480 / 480 -295 / -295
Review of Systems
-
History Source: Patient
All other systems: Reviewed and negative
Physical Exam
-
General: Well Developed, Well Nourished, No Apparent Distress, Comfortable and Obese
HEENT: Normocephalic, Atraumatic, Moist Mucous Membranes and Other (black crusted lesions in right side of face)
Respiratory: Clear to Auscultation
Cardiac: Regular Rhythm and S1/S2
GI: Soft and Nontender
Musculoskeletal: No Clubbing and No Cyanosis
Skin: Warm, Dry and Rash
Neuro: Awake and Alert
Psych: Calm
Data Reviewed
-
Labs: Labs Reviewed by me
--- NOTE | 2024-10-22 17:14 | W.PN.NEPH.PH ---
Today's Communication / Plan
-
hold IVF and diuretics
Assessment/Plan
-
Impression:
CRISTIAN (154/3.8)
CKD 4 (2.2)
Hyponatremia
Hypokalemia
Right facial zoster eruption
Coronary artery disease with history of stenting 2015
History of congestive heart failure with preserved EF
Paroxysmal atrial fibrillation with history of prior ablation
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
History of nonsustained ventricular tachycardia
History of hypertension
Diabetes
Obstructive sleep
Gout
Plan:
CRISTIAN: likely prerenal, FENA low, bland UA
improving renal function cr down to 2.1, BUN 87
sodium stable at 131
renal US no hydro, bladder scan 235cc-monitor
cont to Withhold Lasix and maintain FR
BP stable
wt is slightly up
oral intake still not normal per pt
d/c plan
-
-
Date of Service: October 22, 2024
CC / HPI / ROS
-
Chief Complaint:
Acute kidney injury
History of Present Illness:
Creatinine improved to 2.2
Hemodynamically better
BUN 87 better
wt up
sodium 131
Review of Systems:
nonoliguric
facial rash improving
no chest pain
no resting sob
Labs
-
Labs:
WBC 6.5 10^3/uL (4.8-10.8) 10/22/24 07:23
RBC 3.96 10^6/uL (4.70-6.10) L 10/22/24 07:23
Hgb 10.0 g/dL (13.0-18.0) L 10/22/24 07:23
Hct 32.4 % (39.0-52.0) L 10/22/24 07:23
Plt Count 200 10^3/uL (130-400) 10/22/24 07:23
Sodium 131 mmol/L (135-145) L 10/22/24 07:23
Potassium 4.5 mmol/L (3.5-5.1) 10/22/24 07:23
Chloride 97 mmol/L (98-107) L 10/22/24 07:23
Carbon Dioxide 23 mmol/L (22-30) 10/22/24 07:23
BUN 87 mg/dl (9-20) H 10/22/24 07:23
Creatinine 2.1 mg/dL (0.7-1.3) H 10/22/24 07:23
eGFR 32.62 10/22/24 07:23
Glucose 160 mg/dl (70-99) H 10/22/24 07:23
Calcium 9.5 mg/dl (8.4-10.2) 10/22/24 07:23
Albumin 4.5 g/dl (3.5-5.0) 10/18/24 18:34
Physical Exam
-
Vital Signs:
Vital Signs
Temp Pulse Resp BP Pulse Ox
98.1 F 77 17 117/62 96
10/22/24 15:18 10/22/24 15:18 10/22/24 15:18 10/22/24 15:18 10/22/24 15:18
Cardiovascular:: Regular rate and rhythm
Respiratory:: Bilateral: CTA
Lung Excursion:: Normal
Abdomen:: Nontender and Soft
Extremity Edema:: None: Bilateral:
Hopkins Catheter: No
Other Findings::
facial rash=-crusted right face
[2024-10-22 17:18] LABS: Glucose - Point of Care 180 mg/dl (70-99)
[2024-10-22] MEDS: APRESOLINE PO (19:41)
[2024-10-22 21:36] VITALS: BMI 31.3
[2024-10-22 21:36] LABS: Glucose - Point of Care 200 mg/dl (70-99)
[2024-10-22] MEDS: LANTUS 0.2 UNITS SC (22:25)
[2024-10-22 23:00] VITALS: BP 114/67
[2024-10-23] MEDS: POLYSPORIN OPHTH ×2 (01:11→03:45)
[2024-10-23] MEDS: REFRESH EYE DROPS (PF) OPHTH ×5 (01:12→10:23)
[2024-10-23 05:30] VITALS: BMI 31.4
[2024-10-23 05:59] LABS: Hematocrit 29.8 % (39.0-52.0); Hemoglobin 9.5 g/dL (13.0-18.0); Mean Corp Hgb Conc. 31.9 g/dL (33.0-37.0); Mean Corpuscular Hgb 26.4 pg (27.0-31.0); Mean Corpuscular Volume 82.8 fL (80.0-94.0); Mean Platelet Volume 10.5 fL (7.4-10.4); Platelet Count 196 10^3/uL (130-400); Red Cell Dist. Width 18.1 % (11.5-14.5); White Blood Cell Count 6.7 10^3/uL (4.8-10.8)
[2024-10-23 06:20] LABS: Blood Urea Nitrogen 83 mg/dl (9-20); Calcium 9.4 mg/dl (8.4-10.2); Carbon Dioxide 24 mmol/L (22-30); Chloride 96 mmol/L (98-107); Estimated Creatinine Clearance 35 ml/min; Glucose 134 mg/dl (70-99); Potassium 4.4 mmol/L (3.5-5.1); Sodium 130 mmol/L (135-145); eGFR 29.25
[2024-10-23 07:35] VITALS: BP 145/65
[2024-10-23 07:37] LABS: Glucose - Point of Care 149 mg/dl (70-99)
[2024-10-23] MEDS: LIPITOR 80 MG PO (07:58)
[2024-10-23] MEDS: IMDUR (EXTENDED RELEASE) 30 MG PO (07:58)
[2024-10-23] MEDS: APRESOLINE 10 MG PO (07:58)
[2024-10-23] MEDS: PROTONIX 40 MG PO (07:58)
[2024-10-23] MEDS: ELIQUIS 5 MG PO (07:58)
[2024-10-23] MEDS: ZYLOPRIM 300 MG PO (07:58)
[2024-10-23] MEDS: COREG 25 MG PO (07:59)
[2024-10-23] MEDS: NOVOLOG FLEXPEN 10 UNITS SC ×2 (08:03→13:39)
[2024-10-23] MEDS: NOVOLOG FLEXPEN-HIGH RESISTANCE 1 UNITS SC (08:03)
[2024-10-23] MEDS: POLYSPORIN 1 APPLIC OPHTH ×2 (08:04→13:39)
[2024-10-23] MEDS: REFRESH EYE DROPS (PF) 1 DROPS OPHTH ×2 (08:04→13:41)
[2024-10-23 11:53] LABS: Glucose - Point of Care 233 mg/dl (70-99)
--- NOTE | 2024-10-23 12:18 | W.DCSUMMARY ---
Discharge Summary
Discharge Data
Date of Admission: 10/18/24
Date of Discharge: 10/23/24
Total time spent discharging patient (in min): 55
-
Pending Results: No
Hospital Course
Principal Diagnosis:
Right facial shingles
Acute renal failure
Epistasis
Chronic Diagnoses:�
Coronary Artery Disease s/p LAD Stent in 2016
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
Chronic HFrEF
Paroxysmal Atrial Fibrillation s/p Ablation
Non-Sustained Ventricular Tachycardia
Essential Hypertension
Hyperlipidemia
Diabetes mellitus, Type II
CKD Stage IV
GERD
Obesity
Obstructive Sleep Apnea
Gout
Permanent Pacemaker
Left Ankle Surgery
Left Knee Surgery
Umbilical Hernia Repair
Consultations:�
Nephrology
Procedures:�
None
Clinical course:�
74 y/o male past medical history of:
CAD,
CVA,
CHF,
CKD,
A-fib,
DM
presented with facial rash. Patient describes redness, swelling and scabs on his right face. He denies pain, but notes the area can be itchy at times. He notes bleeding from the nose which has become more frequent. He notes decreased oral intake.
He denies fevers, sweats or chills.
1. Right Facial Shingles in the V2 distribution
lesions have crusted, hence no need for further antiviral; off acyclovir
no evidence of significant erythema or superinfection. Discontinued cefazolin.
Appreciate ID input
Cornea not involved per ophth, cont bacitracin ointment b.i.d. and refresh eye drop
2. Acute Kidney Injury on CKD IV
SCr 3.8 on admission to 2.1 today; baseline at 2.5
Checked kidney bladder US
Cont to hold diuretics
Nephrology agreed with plan
3. Epistasis, resolved
ENT cauterized bleeding areas in the nose.
Bleeding has resolved
4. Hyponatremia, mild and improving
5. Coronary Artery Disease s/p LAD Stent in 2016
Held Plavix due to facial bleeding / epistaxis
Resume at discharge
6. Chronic HFrEF - Diuretics on hold
Monitor Is&Os and Daily Weights
Resume as outpatient
7. Paroxysmal Atrial Fibrillation s/p Ablation
Continue Coreg for rate control
Continue Eliquis despite bleeding given history of CVA
cont to monitor Hgb
8. Essential Hypertension
Continue Coreg but decreased dose, with hold parameter
9. Hyperlipidemia - Continue atorvastatin
10. Diabetes mellitus, Type II
Continue Lantus and NovoLog
Monitor sugars and continue coverage insulin
11. GERD - Continue Protonix
12. Obesity - Encourage weight loss
13. Obstructive Sleep Apnea - Hold on CPAP with shingles
14. Hx CVA with mild right hemiparesis and left visual deficit
15. Hx Non-Sustained Ventricular Tachycardia
DVT proph: Eliquis
Code Status: Full Code
As for the rest of his medical problems, they were stable during his hospital stay.
Discharge Plan
-
Patient Disposition: Home (Routine Discharge)
Discharge Diagnosis/Procedures: Facial shingles, renal failure, nose bleed
Diet: As tolerated
Activity: As tolerated
Driving Restrictions: As prior to admission
Bathing Restrictions: None
Blood Work: Check blood counts and renal function with PCP in 2-3 days with pcp.
Activity Restrictions/Additional Instructions:
Wound Care Instructions
R face: wash gently with mild soap and water, open to air.
Referrals:
Suzy Arias DO [Family Provider] -
Prescriptions:
Continued
carvedilol 25 mg Tablet
50 mg PO BID
allopurinol 300 mg Tablet
300 mg PO DAILY
atorvastatin 80 MG tablet
80 mg PO DAILY
insulin glargine [Lantus U-100 Insulin] 1,000 UNITS/10 ML solution
50 units SC HS
insulin aspart U-100 [Novolog FlexPen U-100 Insulin] 300 UNITS/3 ML insulin pen
40 - 60 sliding scale dose SC AC
Patient Comments:
sliding scale with meals
metolazone 5 mg Tablet
5 mg PO MOWEFR
magnesium oxide 500 mg magnesium tablet
500 mg PO QPM
clopidogrel 75 MG tablet
75 mg PO DAILY
potassium chloride [Klor-Con M20] 20 mEq tablet,ER particles/crystals
40 meq PO BID
cholecalciferol (vitamin D3) 2,000 UNITS tablet
2,000 units PO DAILY
hydralazine 10 MG tablet
10 mg PO BID Qty: 0 0RF
isosorbide mononitrate 30 MG tablet extended release 24 hr
30 mg PO DAILY Qty: 0 0RF
Eliquis 5 MG tablet
5 mg PO BID Qty: 0 0RF
pantoprazole 40 MG tablet,delayed release (DR/EC)
40 mg PO DAILY Qty: 30 0RF
Discontinued
furosemide [Lasix] 80 mg tablet
80 mg PO BID
Discharge Orders:
Discharge Patient (As Directed); Ordered 10/23/24
Ordered By: Matthew Shah
Discharge Date and Time
Print Language: TAJIK
--- NOTE | 2024-10-23 12:29 | HPS.HSE ---
Family Physician
-
Family Physician: Suzy Arias, DO
Medical History
Allergies / Home Medications
Allergies reflects when Allergies were last updated in [facility].
Home Medications with original date entered in [facility]
Physical Exam
Vital Signs
Vital Signs
Temp Pulse Resp BP Pulse Ox
97.8 F 84 18 145/65 95
10/23/24 07:35 10/23/24 07:35 10/23/24 07:35 10/23/24 07:35 10/23/24 07:35
Laboratory Results
-
10/23/24 05:13
10/23/24 05:13
Laboratory Results
Total Bilirubin 1.4 mg/dl (0.2-1.3) H 10/18/24 18:34
AST 16 U/L (17-59) L 10/18/24 18:34
ALT 10 U/L (0-50) 10/18/24 18:34
Alkaline Phosphatase 102 U/L (38-126) 10/18/24 18:34
Impression/Plan
-
IMPRESSION:
PLAN:
--- NOTE | 2024-10-23 12:29 | W.PN.HOSP.TC ---
Today's Communication/Plan
-
Likely can be discharged after renal sees him
Assessment / Plan
Assessment / Plan
74 y/o male past medical history of:
CAD,
CVA,
CHF,
CKD,
A-fib,
DM
presented with facial rash. Patient describes redness, swelling and scabs on his right face. He denies pain, but notes the area can be itchy at times. He notes bleeding from the nose which has become more frequent. He notes decreased oral intake.
He denies fevers, sweats or chills.
A/P: Recovering well, likely d/c today after being seen by nephrology.
1. Right Facial Shingles in the V2 distribution
lesions have crusted, hence no need for further antiviral; off acyclovir
no evidence of significant erythema or superinfection. Discontinued cefazolin.
Appreciate ID input
Cornea not involved per ophth, cont bacitracin ointment b.i.d. and refresh eye drop
2. Acute Kidney Injury on CKD IV
SCr 3.8 on admission to 2.1 today; baseline at 2.5
Checked kidney bladder US
Stop further IVF
Monitor SCr off further IVF
Cont to hold diuretics
Nephrology on board
3. Epistasis, resolved
ENT cauterized bleeding areas in the nose.
Bleeding has resolved
4. Hyponatremia, mild and improving
5. Coronary Artery Disease s/p LAD Stent in 2016
Hold Plavix due to facial bleeding / epistaxis
6. Chronic HFrEF - Diuretics on hold
Monitor Is&Os and Daily Weights
7. Paroxysmal Atrial Fibrillation s/p Ablation
Continue Coreg for rate control
Continue Eliquis despite bleeding given history of CVA
cont to monitor Hgb
8. Essential Hypertension
Continue Coreg but decreased dose, with hold parameter
cont Hydralazine, with hold parameter
9. Hyperlipidemia - Continue atorvastatin
10. Diabetes mellitus, Type II
Continue Lantus and NovoLog
Monitor sugars and continue coverage insulin
11. GERD - Continue Protonix
12. Obesity - Encourage weight loss
13. Obstructive Sleep Apnea - Hold on CPAP with shingles
14. Hx CVA with mild right hemiparesis and left visual deficit
15. Hx Non-Sustained Ventricular Tachycardia
DVT proph: Eliquis
Code Status: Full Code
DW Renal
Anticipated Discharge: Today
Subjective/Interval History
-
Date of Service: October 23, 2024
Feels well, wants to go home
Objective Data
-
Labs:
Laboratory Results
10/23/24
05:13
WBC 6.7
Hgb 9.5 L
Hct 29.8 L
Plt Count 196
Sodium 130 L
Potassium 4.4
Chloride 96 L
Carbon Dioxide 24
BUN 83 H
Creatinine 2.3 H
Glucose 134 H
Calcium 9.4
Vital Signs:
Vital Signs
Temp Pulse Resp BP Pulse Ox
97.8 F 84 18 145/65 95
10/23/24 07:35 10/23/24 07:35 10/23/24 07:35 10/23/24 07:35 10/23/24 07:35
I&O
10/22/24 10/23/24 10/24/24
05:59 06:59 06:59
Intake Total
Output Total
Balance
Review of Systems
-
History Source: Patient
All other systems: Reviewed and negative
Physical Exam
-
General: Well Developed, Well Nourished, No Apparent Distress and Comfortable
Respiratory: Clear to Auscultation
Cardiac: Regular Rhythm and S1/S2
GI: Soft
Musculoskeletal: No Clubbing and No Cyanosis
Skin: Warm, Dry and Rash
Neuro: Awake, Alert, Oriented and AO x 3
Psych: Calm
Data Reviewed
-
Labs: Labs Reviewed by me
[2024-10-23] MEDS: NOVOLOG FLEXPEN-HIGH RESISTANCE 4 UNITS SC (13:39)
--- NOTE | 2024-10-23 14:30 | W.PN.NEPH.PH ---
Addendum entered and electronically signed by Raisa Thompson MD 10/23/24 15:02:
spoke with pt to resume lasix tomorrow and base don wt could resume Metolazone
Original Note:
Today's Communication / Plan
-
ok for d/c
resume lasix out pt
Assessment/Plan
-
Impression:
CRISTIAN (154/3.8)
CKD 4 (2.2)
Hyponatremia
Hypokalemia
Right facial zoster eruption
Coronary artery disease with history of stenting 2015
History of congestive heart failure with preserved EF
Paroxysmal atrial fibrillation with history of prior ablation
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
History of nonsustained ventricular tachycardia
History of hypertension
Diabetes
Obstructive sleep
Gout
Plan:
CRISTIAN: likely prerenal, FENA low, bland UA
cr slightly up at 2.3 but with in baseline
azotemia is much better at 83
sodium stable at 130-should maintain FR
renal US no hydro, bladder scan 140cc
likely hold diuretics still and resume as out pt
BP stable
BMP in 2days , pt also reports scheduled to have tooth pulled on thursday
f/u Dr Thompson as scheduled
d/c plan
-
-
Date of Service: October 23, 2024
CC / HPI / ROS
-
Chief Complaint:
Acute kidney injury
History of Present Illness:
Creatinine up 2.3 but at baseline
Hemodynamically better
BUN 83 better
wt up
sodium 130
Review of Systems:
nonoliguric
facial rash improving
no chest pain
no resting sob
Labs
-
Labs:
WBC 6.7 10^3/uL (4.8-10.8) 10/23/24 05:13
RBC 3.60 10^6/uL (4.70-6.10) L 10/23/24 05:13
Hgb 9.5 g/dL (13.0-18.0) L 10/23/24 05:13
Hct 29.8 % (39.0-52.0) L 10/23/24 05:13
Plt Count 196 10^3/uL (130-400) 10/23/24 05:13
Sodium 130 mmol/L (135-145) L 10/23/24 05:13
Potassium 4.4 mmol/L (3.5-5.1) 10/23/24 05:13
Chloride 96 mmol/L (98-107) L 10/23/24 05:13
Carbon Dioxide 24 mmol/L (22-30) 10/23/24 05:13
BUN 83 mg/dl (9-20) H 10/23/24 05:13
Creatinine 2.3 mg/dL (0.7-1.3) H 10/23/24 05:13
eGFR 29.25 10/23/24 05:13
Glucose 134 mg/dl (70-99) H 10/23/24 05:13
Calcium 9.4 mg/dl (8.4-10.2) 10/23/24 05:13
Albumin 4.5 g/dl (3.5-5.0) 10/18/24 18:34
Physical Exam
-
Vital Signs:
Vital Signs
Temp Pulse Resp BP Pulse Ox
97.8 F 84 18 145/65 95
10/23/24 07:35 10/23/24 07:35 10/23/24 07:35 10/23/24 07:35 10/23/24 07:35
Cardiovascular:: Regular rate and rhythm
Respiratory:: Bilateral: CTA
Lung Excursion:: Normal
Abdomen:: Nontender and Soft
Extremity Edema:: None: Bilateral:
Hopkins Catheter: No
Other Findings::
facial rash=-crusted right face
== END 2024-10-23 15:15 | disposition home or self-care (01) | DRG 596 ==
LOC: 3 WEST ACU 23:54
PROVIDERS: Emergency Medicine; Internal Medicine; Physician Assistant Medical; ADMITTING PHYSICIAN Internal Medicine; ATTENDING PHYSICIAN Internal Medicine; CONSULT PHYSICIAN Ophthalmology; CONSULT PHYSICIAN Otolaryngology Facial Plastic Surgery; EMERGENCY PHYSICIAN Emergency Medicine; FAMILY PHYSICIAN Family Medicine; OTHER PHYSICIAN Internal Medicine Infectious Disease; OTHER PHYSICIAN Specialist
PROC: 093K7ZZ Control Bleeding in Nasal Mucosa and Soft Tissue, Via Natural or Artificial Opening (ICD-10-PCS; 2024-10-19)
DX: B02.9 Zoster without complications (principal); I50.22 Chronic systolic (congestive) heart failure; I47.20 Ventricular tachycardia, unspecified; N18.4 Chronic kidney disease, stage 4 (severe); I13.0 Hypertensive heart and chronic kidney disease with heart failure and stage 1 through stage 4 chronic kidney disease, or unspecified chronic kidney disease; N17.9 Acute kidney failure, unspecified; E87.1 Hypo-osmolality and hyponatremia; L03.211 Cellulitis of face; E87.20 Acidosis, unspecified; I25.10 Atherosclerotic heart disease of native coronary artery without angina pectoris; E11.22 Type 2 diabetes mellitus with diabetic chronic kidney disease; K21.9 Gastro-esophageal reflux disease without esophagitis; E66.9 Obesity, unspecified; I48.0 Paroxysmal atrial fibrillation; G47.33 Obstructive sleep apnea (adult) (pediatric); R04.0 Epistaxis; E87.6 Hypokalemia; E78.00 Pure hypercholesterolemia, unspecified; D63.1 Anemia in chronic kidney disease; E83.42 Hypomagnesemia; K04.7 Periapical abscess without sinus; M10.9 Gout, unspecified; Z68.31 Body mass index [BMI] 31.0-31.9, adult; Z95.0 Presence of cardiac pacemaker; Z88.8 Allergy status to other drugs, medicaments and biological substances; Z79.01 Long term (current) use of anticoagulants; Z79.02 Long term (current) use of antithrombotics/antiplatelets; Z79.4 Long term (current) use of insulin; Z79.899 Other long term (current) drug therapy; Z87.891 Personal history of nicotine dependence; Z88.6 Allergy status to analgesic agent; Z86.73 Personal history of transient ischemic attack (TIA), and cerebral infarction without residual deficits; Z95.5 Presence of coronary angioplasty implant and graft
CPT/HCPCS: 70486; 76770; 80048; 80053; 81003; 82570; 82962; 83036; 83735; 83935; 84156; 84300; 85025; 85027

== ENCOUNTER 2024-12-03 20:33 | Inpatient (IN) | payer MEDICARE, OTHER, SELFPAY ==
[2024-12-03] VITALS (10 sets, daily range): BP systolic 83–108; BP diastolic 46–66; PULSE 71–77; BMI 28.8; BMI 28.5
[2024-12-03 18:22] LABS: % Basophils 0.6 % (0-2); % Eosinophils 2.6 % (0-6); % Immature Granulocytes 0.4 % (0-0.5); % Lymphocytes 6.3 % (20.5-51.1); % Monocytes 5.3 % (1.7-9.3); % Neutrophils 84.8 % (42.2-75.2); Absolute Basophils 0.1 10^3/uL (0-0.2); Absolute Eosinophils 0.3 10^3/uL (0-0.7); Absolute Lymphocytes 0.6 10^3/uL (1.2-3.4); Absolute Monocytes 0.5 10^3/uL (0.1-0.6); Absolute Neutrophils 8.1 10^3/uL (1.4-6.5); Hematocrit 29.5 % (39.0-52.0); Hemoglobin 9.4 g/dL (13.0-18.0); Mean Corp Hgb Conc. 31.9 g/dL (33.0-37.0); Mean Corpuscular Hgb 24.7 pg (27.0-31.0); Mean Corpuscular Volume 77.4 fL (80.0-94.0); Mean Platelet Volume 9.5 fL (7.4-10.4); Nucleated Red Blood Cells % 0 % (-); Platelet Count 292 10^3/uL (130-400); Red Blood Cell Count 3.81 10^6/uL (4.70-6.10); Red Cell Dist. Width 17.2 % (11.5-14.5); White Blood Cell Count 9.5 10^3/uL (4.8-10.8)
[2024-12-03 18:38] LABS: INR 1.67; PT 19.9 Sec (11.4-14.6)
[2024-12-03 18:41] LABS: ALT (SGPT) 13 U/L (0-50); AST (SGOT) 16 U/L (17-59); Albumin 3.5 g/dl (3.5-5.0); Alkaline Phosphatase 98 U/L (38-126); Calcium 9.9 mg/dl (8.4-10.2); Carbon Dioxide 26 mmol/L (22-30); Chloride 93 mmol/L (98-107); Estimated Creatinine Clearance 26 ml/min; Glucose 301 mg/dl (70-99); Potassium 3.4 mmol/L (3.5-5.1); Sodium 133 mmol/L (135-145); Total Bilirubin 0.7 mg/dl (0.2-1.3); Total Protein 6.1 g/dl (6.3-8.2)
[2024-12-03 18:56] LABS: Blood Urea Nitrogen 161 mg/dl (9-20)
--- NOTE | 2024-12-03 19:10 | ED.GENMED ---
History of Present Illness
General
Chief Complaint: Nose Bleed
Source: patient and spouse
Time Seen by Provider: 12/03/24 17:38
History of Present Illness
History of Present Illness:
74-year-old male who presents for persistent epistaxis. He states has been going on for almost a month. Admits that he passed out at home last night. no cp. pt also admits to melena last night. Patient has a history of A-fib and is
anticoagulated. States he is mostly just frustrated. No bleeding on time of my evaluation. Denies fevers. No abdominal pain. No back pain. Does have a history of renal disease and CHF. Also diabetic. Recently recovering from shingles
Past History
Past History
ED Past Medical History: Arrthythmia, CAD, HTN, Hypercholesterolemia, NIDDM, Other (Chronic kidney disease) and Other (Anemia)
ED Past Surgical History: Cardiac, Orthopedic and Other (Hernia surgery)
Social History
Tobacco: Former smoker
Alcohol: None
Drug: None
Personal:
Living: with family
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
Family History
Family History: Other (Noncontributory)
Phy Exam
Physical Exam
Physical Exam:
CONSTITUTIONAL Patient alert and oriented to person, place and time. Well-appearing. Vital signs reviewed.
HEAD atraumatic, normocephalic.
EYES eyelids normal to inspection, Extraocular muscles intact, Conjunctiva normal, Sclera normal.
ENT dried blood noted to left nare. No active bleeding. Scabbed lesion noted to the area just below the right nare
NECK normal range of motion, Trachea midline, no jugular venous distention.
RESPIRATORY CHEST No respiratory distress noted, Chest expansion equal, Bilateral breath sounds clear.
CARDIOVASCULAR regular rate and rhythm, Heart sounds normal.
ABDOMEN abdomen nontender, Bowel sounds normal. No distention.
Rectal exam melanotic stool, heme positive
BACK normal inspection, no obvious deformities
UPPER EXTREMITY range of motion normal, Motor strength normal.
LOWER EXTREMITY range of motion normal, Motor strength normal.
NEURO Speech normal, No focal motor deficits, [place] coma scale 15, Memory normal, Cranial Nerves intact to screening exam.
SKIN skin warm, dry, and normal in color.
Course
Orders/Labs/Results
Orders:
Orders
12/03/24 Dinner
Cholesterol Lowering
At Your Request: Limited Participation
Does patient need a safe tray?: No
Cholesterol Lowering: Sodium, 2 Gram
12/03/24 18:16
Complete Blood Count/With Diff Urgent
Comprehensive Metabolic Panel Urgent
PTT Urgent
Prothrombin Time Urgent
12/03/24 18:21
Electrocardiogram (*1) Urgent
Reason for Study: Syncope
EKG- Treatment ONCE
12/03/24 19:19
0.9% Sodium Chloride 500 ml [Nss] 500 ml IV BOLUS
Pantoprazole [Protonix IV] 80 mg IV NOW STA
12/03/24 19:20
CT Head W/o Iv Contrast Urgent
Comment:
Reason For Exam: syncope, fall, anticoagulated
12/03/24 19:38
Potassium Chloride 10% Elixir [KCl Elixir] 40 meq PO NOW STA
12/03/24 20:26
Admit/Transfer Patient As Directed
Co-Sign Provider:
Level of Care: Inpatient admission
Assign to:: Telemetry
Physician / Group: rosario
Diagnosis: syncope, epistaxis
Reason for Telemetry: Arrhythmia
Date to Stop Telemetry: 12/06/24
Time to Stop Telemetry: 11:00
Reason for Hospitalization: syncope, epistaxis
Expected length of stay greater than two midnights?: Yes
ELOS- Estimated Length of Stay in days: 2
I certify the patient meets the requirements for IP care: Yes
PRN Pain Medication Management As Directed
May give lesser potent ordered pain med per pt: Yes
preference::
Protocol:: Medication orders for pain may be administered in a
manner that supports deferring to patient preference
when the pt is:
- Requesting an ordered lesser potent pain medication.
Least to most potent pain medications are defined
as: acetaminophen < NSAID < tramadol < opioids
(morphine, oxycodone, hydromorphone).
- Requesting a lesser dose of the same medication IF
ORDERED.
- Requesting a less intrusive route of administration
if both routes are prescribed by the provider (PO <
IV).
12/03/24 20:27
Code Status As Directed
Resuscitation Status: Full Code
12/03/24 21:39
Dextrose 50%-Water [Dextrose 50% Syringe] 12.5 grams IV [id number] PRN
Glucagon [GlucaGen] 1 mg IM PRN PRN
12/03/24 21:39
Activity As Directed
Activity Level: As Tolerated
Bedside Glucose Monitoring As Directed
Frequency: AC&HS
Additional Instructions:: Change to q6h if pt on TPN, tube feeding or not eating
Pneumatic Compression Sleeves As Directed
Type: Knee high
Vital Signs As Directed
Frequency: Per unit guidelines
DX Deep Vein Thrombosis Video Routine
12/04/24 06:00
Complete Blood Count/With Diff IN AM
Comprehensive Metabolic Panel IN AM
Glycohemoglobin (HgbA1c) IN AM
12/04/24 07:30
Insulin Aspart High Resistance [Novolog Flexpen-High Resistance] See Protocol SC AC
12/04/24 08:00
Allopurinol [Zyloprim] 80 mg PO Q48H
Atorvastatin [Lipitor] 80 mg PO DAILY
Cholecalciferol (Vitamin D3) [VITAMIN D3 (cholecalciferol)] 50 mcg PO DAILY
Clopidogrel Bisulfate [Plavix] 75 mg PO DAILY
Pantoprazole [Protonix] 40 mg PO DAILY
Potassium Chloride [KCl] 40 meq PO BID
12/04/24 18:00
Magnesium Oxide 500 mg PO QPM
12/06/24 11:00
DC Protocol for Telemetry ONCE
Abnormal Lab Results
12/03/24
18:16
RBC 3.81 L 10^6/uL
(4.70-6.10)
Hgb 9.4 L g/dL
(13.0-18.0)
Hct 29.5 L %
(39.0-52.0)
MCV 77.4 L fL
(80.0-94.0)
MCH 24.7 L pg
(27.0-31.0)
MCHC 31.9 L g/dL
(33.0-37.0)
RDW 17.2 H %
(11.5-14.5)
Absolute Neuts (auto) 8.1 H 10^3/uL
(1.4-6.5)
Absolute Lymphs (auto) 0.6 L 10^3/uL
(1.2-3.4)
Neutrophils % 84.8 H %
(42.2-75.2)
Lymphocytes % 6.3 L %
(20.5-51.1)
PT 19.9 H Sec
(11.4-14.6)
APTT 36.0 H Sec
(23.4-35.0)
Sodium 133 L mmol/L
(135-145)
Potassium 3.4 L mmol/L
(3.5-5.1)
Chloride 93 L mmol/L
(98-107)
BUN 161 H* mg/dl
(9-20)
Creatinine 2.8 H mg/dL
(0.7-1.3)
Glucose 301 H mg/dl
(70-99)
AST 16 L U/L
(17-59)
Total Protein 6.1 L g/dl
(6.3-8.2)
12/03/24 18:16
12/03/24 18:16
Vital Signs
Initial and Last Documented VS:
Initial Vital Signs
Temp Pulse Resp BP Pulse Ox
97.9 F 73 20 87/53 100
12/03/24 17:27 12/03/24 17:27 12/03/24 17:27 12/03/24 17:27 12/03/24 17:27
Last Documented Vital Signs
Temp Pulse Resp BP Pulse Ox
97.7 F 72 20 108/58 99
12/03/24 21:57 12/03/24 21:57 12/03/24 21:57 12/03/24 21:57 12/03/24 21:57
MDM/Problems Addressed
MDM/Problems Addressed:
Acute epistaxis, acute kidney injury, elevated BUN, chronic anemia, acute hyperglycemia
*Pulse Oximetry
Patient hypoxic: no
*EKG
Interpreted by ED Provider?: Yes
Interpretation: abnormal
Rate: normal
Rhythm: ventricular paced
Ischemia: non-specific ST changes
*Gro[employer] Interpretation
Rate: normal
Interpretation: abnormal
Rhythm: ventricular paced
*Critical Care Note
Total Time (30-74mins, 75-104mins- exclusive of procedures): Not Applicable
Data Reviewed
Review of Other/Old Records Reveals: Labs (Prior labs reviewed showing chronic kidney disease)
Source: patient and spouse ( states that there was a significant mount of blood throughout the bedroom.)
Prescriptions/Medications Considered But Not Given:
Considered antibiotics but afebrile with normal white count
Patient Management
Discussion with other providers: Hospitalist
Escalation/DeEscalation of care consider admission/obs:
74yo male who presents with recurrent epistaxis as well as syncopal events at home. Found to be relatively hypotensive here and heme positive by rectal exam. Could be heme positive due to epistaxis and swelling blood BUN is markedly has had those
numbers in the past. Given his history, treat with IV fluids dose of Protonix and admit. In light of the anticoagulation, check head CT
ED Attending Note
-
Portions of this chart may have been created with voice recognition software.� Occasional wrong word or��sound alike� substitutions may have occurred due to the inherent limitations of voice recognition software.
Discharge Plan
Departure
Patient Disposition: Admit
Date of Disposition: 12/03/24
Time of Disposition: 19:35
Admit to: Telemetry
Presentation/result/management discussed w/ accepting MD/DO: Hospitalist
Discharge Problem:
Acute anterior epistaxis, Acute kidney injury, Possible GI bleed, Acute hyperglycemia
Interventions
Interventions:
*Risk Screen - Suicide Last Done: 12/03/24 17:27
*General Assessment Last Done: 12/03/24 17:27
*Neglect/Abuse Screening Last Done: 12/03/24 17:27
*ED- Fall Risk Assessment Last Done: 12/03/24 18:06
*ED COVID-19 Vaccine History Last Done: 12/03/24 18:06
*Nursing Disposition Last Done: 12/03/24 21:41
ED-EENT Assessment Last Done: 12/03/24 20:44
Discharge Date and Time
Discharge Date/Time: 12/03/24 21:41
[2024-12-03] MEDS: PROTONIX IV 80 MG IV (19:28)
[2024-12-03] MEDS: NSS 500 IV ×2 (19:31→22:33)
[2024-12-03] MEDS: KCL ELIXIR 40 MEQ PO (20:04)
--- NOTE | 2024-12-03 20:36 | HPS.HSE ---
Family Physician
-
Family Physician: Suzy Arias, DO
Chief Complaint
-
syncope
History of Present Illness
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
visual deficit, hypertension, type 2 diabetes, CKD 4, GERD, obesity, obstructive sleep apnea, gout, presenting for syncopal episode.
He has been having intermittent epistaxis starting a year ago but particularly severe for the past month. Bleeding will occur throughout the day from just the left nostril. He was admitted in October for shingles of the right face and at that time
he was seen by ENT for the epistaxis and had cauterization. He denies any bleeding currently.
Last night he was having bleeding and he was in the bathroom when he passed out. He also has had dark stools since yesterday. He has had dark stool a month ago which was attributed to epistaxis. He denies abdominal pain. Denies nausea vomiting
or diarrhea. Denies chest pain. He has had shortness of breath with exertion for the past year.
He denies smoking or alcohol use.
He did not take his insulin yesterday.
Medical History
Past Medical History
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
visual deficit, hypertension, type 2 diabetes, CKD 4, GERD, obesity, obstructive sleep apnea,)
Past Surgical History: Reports Other (Left ankle surgery, left knee surgery, umbilical hernia repair,)
Social History
Tobacco: Non-smoker
Alcohol: None
Drug: None
Family History
Family History: Not pertinent
Allergies / Home Medications
Allergies reflects when Allergies were last updated in [employer].
Home Medications with original date entered in [employer]
Allergy/Medication List:
Allergies
Allergy/AdvReac Type Severity Reaction Status Date / Time
acetaminophen Allergy cough Verified 12/03/24 18:06
lisinopril Allergy cough Verified 12/03/24 18:06
metformin Allergy renal Verified 12/03/24 18:06
failure
Home Medications
apixaban 5 mg tablet (Eliquis) 5 mg PO BID #0 tabs 04/19/21
hydralazine 10 mg tablet 10 mg PO BID #0 tabs 04/19/21
isosorbide mononitrate 30 mg tablet,extended release 24 hr 30 mg PO DAILY #0 tabs 04/19/21
pantoprazole 40 mg tablet,delayed release 40 mg PO DAILY #30 tabs 04/19/21
allopurinol 300 mg tablet 300 mg PO DAILY Gout 07/28/23
atorvastatin 80 mg tablet 80 mg PO DAILY High Cholesterol 07/28/23
carvedilol 25 mg tablet 50 mg PO BID Blood Pressure 07/28/23
insulin aspart U-100 100 unit/mL (3 mL) subcutaneous pen (Novolog FlexPen U-100 Insulin aspart) 20 - 35 sliding scale dose SC AC Diabetes 07/28/23
insulin glargine 100 unit/mL subcutaneous solution (Lantus U-100 Insulin) 30 - 35 units SC HS Diabetes 07/28/23
magnesium oxide 500 mg PO QPM Supplement 10/18/24
metolazone 5 mg tablet 5 mg PO MOWEFR Fluid Retention/Swelling 10/18/24
cholecalciferol (vitamin D3) 50 mcg (2,000 unit) tablet 2,000 units PO DAILY Supplement 10/20/24
clopidogrel 75 mg tablet 75 mg PO DAILY Blood Clot Prevention/Tx 10/20/24
potassium chloride 20 mEq tablet,extended release(part/cryst) (Klor-Con M) 40 meq PO BID Electrolyte Repletion 10/20/24
Review of Systems
-
History Source: Patient
A 12 point ROS was completed and negative except as noted: Yes
Constitutional: Reports No Symptoms
EENT: Reports See HPI
Respiratory: Reports No Symptoms
Cardiac: Reports No Symptoms
Abdomen/GI: Reports No Symptoms
: Reports No Symptoms
Musculoskeletal: Reports No Symptoms
Skin: Reports No Symptoms
Neurological: Reports No Symptoms
Endocrine: Reports No Symptoms
Hematologic/Lymphatic: Reports No Symptoms
Psych: Reports No Symptoms
Physical Exam
Vital Signs
Vital Signs
Temp Pulse Resp BP Pulse Ox
98.2 F 77 20 101/51 97
12/03/24 18:07 12/03/24 19:15 12/03/24 19:15 12/03/24 19:00 12/03/24 19:15
Physical Exam
General: Well Developed, Well Nourished and No Apparent Distress
HEENT: NormoCephalic, Moist mucous membranes and Atraumatic
Respiratory: Clear
Cardiac: S1/S2 and Regular Rhythm; No Murmur or Rub
GI: Soft, Non Tender, Non Distended and Normal Bowel Sounds; No Organomegaly
Rectal: Deferred by Provider
Musculoskeletal: No Clubbing, No Cyanosis and No Edema
Skin: No Rash
Neuro: Nonfocal/grossly intact
Laboratory Results
-
12/03/24 18:16
12/03/24 18:16
Laboratory Results
PT 19.9 Sec (11.4-14.6) H 12/03/24 18:16
INR 1.67 12/03/24 18:16
APTT 36.0 Sec (23.4-35.0) H 12/03/24 18:16
Total Bilirubin 0.7 mg/dl (0.2-1.3) 12/03/24 18:16
AST 16 U/L (17-59) L 12/03/24 18:16
ALT 13 U/L (0-50) 12/03/24 18:16
Alkaline Phosphatase 98 U/L (38-126) 12/03/24 18:16
Data Reviewed
-
Lab Data: Labs Reviewed by me
Old Records: Reviewed
Impression/Plan
-
IMPRESSION:
PLAN:
# Syncopal episode likely secondary to ongoing epistaxis/hypotension
# Hypotension secondary to persistent epistaxis
-EKG shows ventricular paced rhythm
-CT head shows no acute abnormality
- 1 L IV fluids given, continue maintenance gently for 500 cc more although caution given history of HFpEF
- Hemoglobin stable 9.4 surprisingly
#Ongoing persistent epistaxis from left nostril
-Underwent cauterization last month during hospitalization by ENT
- No epistaxis currently
- Hemoglobin 9.4 at baseline
- Hold Eliquis, continue Plavix
- ENT consulted and to see tomorrow
# Melena likely secondary to epistaxis
- BUN of 161
- Continue 40 oral Protonix
# Hypokalemia secondary to metolazone
- Replete potassium
# Hyperglycemia
# Type 2 diabetes
- Blood sugar 301
- Continue Lantus 35 units, high-dose insulin sliding scale in place of 20 to 35 units NovoLog
CAD status post LAD stenting in 2015
- Continue statin
- Continue Plavix
- Hold isosorbide mononitrate
Chronic HFpEF
- Hold Coreg, metolazone
Paroxysmal atrial fibrillation status post ablation with permanent pacemaker
- Hold Eliquis
Nonsustained ventricular tachycardia
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
Recent shingles of right face V2 distribution
- Completed treatment and improving
Essential hypertension
- Hold hydralazine
CKD 4
- Renal function at baseline
GERD
- Continue Protonix
Obesity
Obstructive sleep apnea
Gout
- Continue allopurinol
Full code
DVT prophylaxis�SCDs
Cardiac diet
[2024-12-03 22:22] LABS: Glucose - Point of Care 170 mg/dl (70-99)
[2024-12-03] MEDS: FLUSH (NSS) 1 FLUSH IV (22:46)
[2024-12-03] MEDS: LANTUS 0.35 UNITS SC (22:47)
[2024-12-04] VITALS (9 sets, daily range): BP systolic 81–128; BP diastolic 45–74; PULSE 72–76; BMI 28.4
[2024-12-04 03:27] LABS: Glucose - Point of Care 145 mg/dl (70-99)
[2024-12-04] MEDS: NSS 1000 IV (03:55)
[2024-12-04 05:47] LABS: % Basophils 0.8 % (0-2); % Eosinophils 3.7 % (0-6); % Immature Granulocytes 0.7 % (0-0.5); % Lymphocytes 9.1 % (20.5-51.1); % Monocytes 5.6 % (1.7-9.3); % Neutrophils 80.1 % (42.2-75.2); Absolute Basophils 0.1 10^3/uL (0-0.2); Absolute Eosinophils 0.4 10^3/uL (0-0.7); Absolute Immature Granulocytes 0.1 10^3/uL (0-0.05); Absolute Lymphocytes 0.9 10^3/uL (1.2-3.4); Absolute Monocytes 0.6 10^3/uL (0.1-0.6); Absolute Neutrophils 8.3 10^3/uL (1.4-6.5); Hematocrit 30.5 % (39.0-52.0); Hemoglobin 9.5 g/dL (13.0-18.0); Mean Corp Hgb Conc. 31.1 g/dL (33.0-37.0); Mean Corpuscular Hgb 24.7 pg (27.0-31.0); Mean Corpuscular Volume 79.4 fL (80.0-94.0); Mean Platelet Volume 9.9 fL (7.4-10.4); Nucleated Red Blood Cells % 0 % (-); Platelet Count 291 10^3/uL (130-400); Red Blood Cell Count 3.84 10^6/uL (4.70-6.10); Red Cell Dist. Width 17.2 % (11.5-14.5); White Blood Cell Count 10.3 10^3/uL (4.8-10.8)
[2024-12-04 06:11] LABS: ALT (SGPT) < 10 U/L (0-50); AST (SGOT) 13 U/L (17-59); Albumin 3.4 g/dl (3.5-5.0); Alkaline Phosphatase 95 U/L (38-126); Calcium 9.9 mg/dl (8.4-10.2); Carbon Dioxide 27 mmol/L (22-30); Chloride 96 mmol/L (98-107); Estimated Creatinine Clearance 26 ml/min; Glucose 139 mg/dl (70-99); Potassium 3.6 mmol/L (3.5-5.1); Sodium 136 mmol/L (135-145); Total Bilirubin 0.7 mg/dl (0.2-1.3); Total Protein 5.9 g/dl (6.3-8.2); eGFR 24.13
--- NOTE | 2024-12-04 06:21 | PTCARENOTE ---
Pt [id number] able to make his needs known,flat effect pt doesn't like to be bothered & prefers to sleep,irritated when trying to ask questions.Pt oriented to room & call melton in reach.Plan of care continued on pt.
[2024-12-04 06:23] LABS: Blood Urea Nitrogen 146 mg/dl (9-20)
[2024-12-04 07:26] LABS: Glucose - Point of Care 148 mg/dl (70-99)
[2024-12-04] MEDS: NOVOLOG FLEXPEN-HIGH RESISTANCE SC (07:43)
--- NOTE | 2024-12-04 08:47 | CON.MD ---
Consultation - Medical
-
dictated.
L epistaxis due to eliquis, plavix, uremia, severe rhinitis sicca
I cauterized his nose again today. Nasal saline ordered. He should have a humidifier for his CPAP.
[2024-12-04] MEDS: PROTONIX 40 MG PO (08:49)
[2024-12-04] MEDS: PLAVIX 75 MG PO (08:49)
[2024-12-04] MEDS: LIPITOR 80 MG PO (08:49)
[2024-12-04] MEDS: VITAMIN D3 (cholecalciferol) 50 MCG PO (08:49)
[2024-12-04] MEDS: KCL 40 MEQ PO ×2 (08:49→21:20)
--- NOTE | 2024-12-04 10:49 | W.PN.HOSP.TC ---
Today's Communication/Plan
-
check Troponin, TTE tomorrow
check orthostats
resume lower dose Coreg and monitor BP today
based on above, may need Cardiology consult tomorrow
Assessment / Plan
Assessment / Plan
Mr. Johnathan Kumar is a 74-year-old male with hx CAD status post LAD stenting 2016, chronic HFpEF, paroxysmal atrial fibrillation status post ablation with permanent pacemaker, nonsustained ventricular tachycardia, CVA with mild right hemiparesis
and left visual deficit, hypertension, type 2 diabetes, CKD 4, GERD, obesity, obstructive sleep apnea, gout, presenting for syncopal episode. Patient has had intermittent epistaxis over past year; particularly severe past month. Night prior to
admission he had epistaxis followed by syncopal episode.
Syncopal episode likely vasovagal in setting of epistaxis versus orthostasis in setting of home BP regimen. Patient's SBP low 100's off home BP regimen (Coreg 50 BID, Imdur 30QD, Hydral 10 BID)
-EKG shows ventricular paced rhythm
-CT head shows no acute abnormality
-s/p IVF
-monitor on telemetry - intermittent PVC's
-will check Troponin
-TTE tomorrow
Ongoing persistent epistaxis from left nostril
-Underwent cauterization last month during hospitalization by ENT
L epistaxis due to eliquis, plavix, uremia, severe rhinitis sicca
-appreciate ENT consult, s/p left nostril cauterization; nasal saline ordered; humidifer for CPAP recommended
-I will resume Eliquis this evening to monitor on blood thinner overnight (discussed with ENT)
Melena likely secondary to epistaxis
- BUN of 161
- Continue 40 oral Protonix
Essential hypertension
- Hold hydralazine, Imdur, given low BP and syncope
-*resume Coreg at lower dosing 6.25mg PO BID and monitor BP today
Chronic HFpEF
- lower dose Coreg, hold metolazone
-TTE 08/08 with EF 43%, mild to moderate MR
-repeat TTE tomorrow as above
-*consider Cardiology consult based on above
Hypokalemia secondary to metolazone
- Replete potassium
# Hyperglycemia
# Type 2 diabetes
- Blood sugar 301
- Continue Lantus 30 units, high-dose insulin sliding scale in place of 20 to 35 units NovoLog
CAD status post LAD stenting in 2015
- Continue statin
- Continue Plavix
- Hold Imdur
- resume lower dose Coreg
Paroxysmal atrial fibrillation status post ablation with permanent pacemaker
- resume Eliquis later this evening
Nonsustained ventricular tachycardia
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
Recent shingles of right face V2 distribution
- Completed treatment and improving
CKD 4
- Renal function at baseline
GERD
- Continue Protonix
Obesity
Obstructive sleep apnea
Gout
- Continue allopurinol
Full code
DVT prophylaxis�SCDs
Cardiac diet
51 minutes spent on patient care
Anticipated Discharge: 24 - 48 hours
Subjective/Interval History
-
Date of Service: December 04, 2024
no further bleeding now s/p cauterization
states blood could have filled a cup at home
states he had gotten up and walked to the bathroom when suddenly passed out. denies preceding chest pain or palpitations
Objective Data
-
Labs:
Laboratory Results
12/04/24
04:57
WBC 10.3
Hgb 9.5 L
Hct 30.5 L
Plt Count 291
Sodium 136
Potassium 3.6
Chloride 96 L
Carbon Dioxide 27
BUN 146 H*
Creatinine 2.7 H
Glucose 139 H
Calcium 9.9
Total Bilirubin 0.7
AST 13 L
ALT < 10
Alkaline Phosphatase 95
Vital Signs:
Vital Signs
Temp Pulse Resp BP Pulse Ox
97.6 F 73 18 104/65 96
12/04/24 07:30 12/04/24 07:30 12/04/24 07:30 12/04/24 07:30 12/04/24 07:30
I&O
12/03/24 12/04/24 12/05/24
06:59 06:59 06:59
Intake Total 980 / 980
Output Total 800 / 800
Balance 180 / 180
Review of Systems
-
History Source: Patient
All other systems: Reviewed and negative
Physical Exam
-
General: No Apparent Distress
HEENT: PERRLA
Respiratory: Clear to Auscultation; Negative Wheezes
Cardiac: Regular Rhythm and S1/S2
GI: Soft and Nontender
Musculoskeletal: No Edema
Skin: Warm and Dry; Negative Rash
Neuro: AO x 3
Psych: Calm
Data Reviewed
-
Diagnostic Radiology: Report Reviewed by me
Labs: Labs Reviewed by me
[2024-12-04 11:37] LABS: Glycohemoglobin (HgbA1c) 7.2 % (4.0-5.6)
[2024-12-04] MEDS: COREG 6.25 MG PO ×2 (11:42→21:21)
[2024-12-04] MEDS: ZYLOPRIM 50 MG PO (11:42)
--- NOTE | 2024-12-04 11:42 | CM ---
CM following re: discharge planning.
Reviewed pt's chart,met with pt.
Pt is a 74 year old male, admitted with primary dx of Syncope.
Pt reports he lives with spouse 2SH, 3 steps to enter, has 6 supportive children and supportive stepdaughter. Pt reports he ambulates with a walker, has shower chair, uses C-pap machine, [facility] to [facility].
PT and OT will evaluate the pt to determine a level of care at discharge.
PCP: Suzy Arias
Pharmacy: [facility].
D/C plan: home with most likely VN services if recommended by PT/OT
CM will follow with discharge plan updates as hospitalization progresses
[2024-12-04] MEDS: OCEAN, SALINE MIST 2 SPRAYS NASAL ×3 (11:43→22:21)
--- NOTE | 2024-12-04 12:31 | W.PN.UPDATE ---
Addendum entered and electronically signed by Tari Sheppard MD 12/04/24 13:37:
I have consulted Cardiology to help with GDMT in setting of low blood pressure, also for PPM interrogation
Original Note:
Update Note
Progress Note Update
positive orthostats (104/61 --> 101/50 --> 83/45). will give additional bolus and repeat afterwards
[2024-12-04 12:37] LABS: Glucose - Point of Care 261 mg/dl (70-99)
[2024-12-04 12:38] LABS: Troponin I 0.039 ng/ml
[2024-12-04] MEDS: NSS 500 IV (13:02)
[2024-12-04] MEDS: NOVOLOG FLEXPEN-HIGH RESISTANCE 7 UNITS SC ×2 (13:37→17:03)
[2024-12-04 16:43] LABS: Glucose - Point of Care 273 mg/dl (70-99)
[2024-12-04] MEDS: MAGNESIUM OXIDE 500 MG PO (17:04)
[2024-12-04 17:49] LABS: Potassium 3.9 mmol/L (3.5-5.1)
[2024-12-04 18:08] LABS: Troponin I 0.035 ng/ml
--- NOTE | 2024-12-04 18:12 | PTCARENOTE ---
Dr Sheppard notified of the 5pm K and troponin results.
[2024-12-04] MEDS: ELIQUIS 5 MG PO (21:20)
[2024-12-04 21:47] LABS: Glucose - Point of Care 219 mg/dl (70-99)
[2024-12-04] MEDS: LANTUS 0.3 UNITS SC (22:21)
[2024-12-05 03:29] VITALS: BP 120/55
[2024-12-05 05:03] VITALS: BMI 28.6
[2024-12-05 06:16] LABS: Hematocrit 30.1 % (39.0-52.0); Hemoglobin 9.3 g/dL (13.0-18.0); Mean Corp Hgb Conc. 30.9 g/dL (33.0-37.0); Mean Corpuscular Hgb 24.7 pg (27.0-31.0); Mean Corpuscular Volume 80.1 fL (80.0-94.0); Mean Platelet Volume 9.4 fL (7.4-10.4); Platelet Count 276 10^3/uL (130-400); Red Blood Cell Count 3.76 10^6/uL (4.70-6.10); Red Cell Dist. Width 17.4 % (11.5-14.5); White Blood Cell Count 9.9 10^3/uL (4.8-10.8)
[2024-12-05 06:46] LABS: Calcium 9.9 mg/dl (8.4-10.2); Carbon Dioxide 26 mmol/L (22-30); Chloride 98 mmol/L (98-107); Estimated Creatinine Clearance 30 ml/min; Glucose 218 mg/dl (70-99); Magnesium 1.9 mg/dl (1.6-2.3); Potassium 4.1 mmol/L (3.5-5.1); Sodium 137 mmol/L (135-145); eGFR 29.25
[2024-12-05 06:58] LABS: Blood Urea Nitrogen 121 mg/dl (9-20)
[2024-12-05 07:30] VITALS: BP 127/65
--- NOTE | 2024-12-05 08:06 | CON.CAR ---
Addendum entered and electronically signed by Alex Martin MD 12/05/24 12:26:
74-year-old man admitted with syncope and recurrent epistaxis. On Eliquis and clopidogrel at baseline now with orthostasis. He has been struggling with epistaxis for the last month, had added clopidogrel to Eliquis in 2020 for cerebellar stroke,
has not had a vascular event since that time. Has not seen neurology since hospitalization. Hemoglobin has dropped over 4 g in the last 18 months. Syncopal episode occurred after voiding last night and standing from the toilet. No prior syncope.
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
hyperlipidemia, CKD stage IV, CAD status post PCI, morbid obesity
Medications: Atorvastatin 80 mg a day, clopidogrel 75 mg a day, apixaban 5 mg twice daily, magnesium oxide, pantoprazole, potassium chloride 40 twice daily, allopurinol 50 mg every 48 hours, carvedilol 6.25 twice daily, insulin
127/65, pulse 72, respiratory 18, afebrile, sats 99%, head neck exam notable for recent H zoster scarring over the mid and upper right 5th cranial nerve distribution, lungs are clear, regular rate and rhythm without obvious JVD okay,. Bruits
abdomen obese extremities without edema distal pulses intact, neuro nonfocal
Hemoglobin 9.3, was 12.1 in early October, 13.9 in August 2023, MCV is 80, troponin is 0.035, BUN and creatinine are 121 and 2.3
ECG atrial rhythm with asynchronous ventricular pacing
Impression:
Micturition syncope
Orthostatic hypotension
Recent H zoster over right 5th cranial nerve
Recurrent epistaxis
Permanent atrial fibrillation
Status post AV georges ablation, pacing via His lead
Chronic heart failure with mildly reduced EF
Ischemic cardiomyopathy, LAD PCI 2015/history of PR
History of cerebellar stroke
CKD stage IV
Hypertension
Hyperlipidemia
Type 2 diabetes
Obstructive sleep apnea
Nonsustained VT
Anemia, suspect iron deficient
Plan:
He presents with what is most likely micturition syncope in the setting of recurrent epistaxis and blood loss.
His epistaxis may relate to an aggressive anticoagulation regimen. Currently, indication for both clopidogrel and Eliquis is unclear. Will stop clopidogrel which should dramatically reduce bleeding risk and likelihood of recurrent epistaxis
Await echocardiogram.
Interrogation of pacemaker confirms that there is no indication of heart block or malignant ventricular arrhythmias as a cause of syncope.
Given orthostasis, agree with reduction in carvedilol and holding hydralazine as well as nitrates
Patient will hopefully be ready for discharge in 24 to 48 hours.
Stop clopidogrel, check proBNP, check iron studies
Original Note:
Consultation
Consultation Request
Date/Time Consultation Requested: 12/04/2024,1335
Date/Time Consultation Performed: 12/05/2024, 0800
Requesting Provider: Tari Sheppard MD
Performing Provider: BECKY Torres for Dr Martin
Reason for Consultation: syncopal episode
Medical History
-
Chief Complaint: syncope
History of Present Illness:
74-year-old male with past medical history permanent atrial fibrillation, pacemaker, AV georges ablation 07/2020 to obtain rate control (permanent pacemaker is Medtronic with His bundle area lead in the LV port and standard RV lead in the RV port),
BiV pacemaker since 2019, chronic anticoagulation with Eliquis, coronary artery disease status post LAD stent in 2015 (on Plavix), ischemic cardiomyopathy, LVEF 40 to 45%, cerebellar CVA 2020, chronic systolic and diastolic heart failure, morbid
obesity, obstructive sleep apnea on CPAP, NSVT on device interrogations, progressive chronic kidney disease stage IV (creatinine mid 2s) hypertension, hyperlipidemia, insulin-dependent type 2 diabetes mellitus, recent shingles involving face, mouth,
and naris affecting his ability to eat. Recently seen by Dr. Carson 11/10/2024 and complained of increased dyspnea on exertion, device reprogrammed in an effort to more fully conduction system pace him. Output of RV pacing lead programmed to
noncapture so capturing only through the HIS bundle lead. Base pacing rate was increased from 60 to 70 bpm with intention to improve his cardiac resynchronization pacing percentage. He has short episodes of VT and beta-day was continued. He
is on carvedilol 50 mg twice daily. At 11/10/2024 visit his volume status was thought to be improved and he was mildly orthostatic with increasing creatinine. Metolazone was reduced to 5 mg twice a week for total weekly dose of 10 mg (from 15 mg).
He presented to ED 12/03/2024 following syncopal episode. He has been having increased epistaxis in the past month. Night prior to admission having nose bleeding and was in bathroom. Stood up from seated position and had syncope. Fell on
tailbone. He got up and walked to his bed and felt lightheaded. Also noted dark stools x 1 month.
ED workup: Hemoglobin 9.4, BUN 161, creatinine 2.8, K3.4, NA [address]: No acute intracranial abnormality
EKG: A sensed, V paced
BP 87/53
He was gently hydrated upon admission and antihypertensives and diuretics including carvedilol, isosorbide, furosemide, metolazone held. Eliquis held. He was seen by ENT and had cauterization of left nares.
Hemoglobin stable and Eliquis resumed. Carvedilol resumed at 6.25 mg twice daily. Patient scheduled for echo today.
No longer having lightheadedness. Denies shortness of breath, chest pain, palpitations, edema, PND, orthopnea.
Past medical history:
CAD status post LAD PCI 2015
Chronic systolic and diastolic heart failure
Ischemic cardiomyopathy
Cerebellar stroke 2020
BiV pacemaker 2019
Permanent atrial fibrillation status post AV georges ablation 08/07/2020
Chronic kidney disease stage IV (baseline creatinine mid twos)
Hypertension
hyperlipidemia
type 2 diabetes on insulin
Nonsustained VT
Obstructive sleep apnea on CPAP
Past Medical History
Past Medical History: Other (As above in HPI)
Past Surgical History: Other (Hernia repair, eye surgery, AVJ ablation and pacemaker July 2020)
Social History
Tobacco: Former Smoker
Alcohol: None
Family History
Family History: Other (Father age 73, PR, CABG, heart disease. Mother age 86 cardiovascular disease, diabetes mellitus)
Allergies / Home Medications
Allergy/AdvReac Type Severity Reaction Status Date / Time
acetaminophen Allergy cough Verified 12/03/24 18:06
lisinopril Allergy cough Verified 12/03/24 18:06
metformin Allergy renal Verified 12/03/24 18:06
failure
�Medication �Instructions �Recorded �Confirmed �Type
pantoprazole 40 mg tablet,delayed 40 mg PO DAILY #30 tabs 04/19/21 12/03/24 Rx
release
allopurinol 300 mg tablet 300 mg PO DAILY Gout 07/28/23 12/03/24 History
atorvastatin 80 mg tablet 80 mg PO DAILY High Cholesterol 07/28/23 12/03/24 History
carvedilol 25 mg tablet 50 mg PO BID Blood Pressure 07/28/23 12/03/24 History
insulin aspart U-100 100 unit/mL 20 - 35 sliding scale dose SC AC 07/28/23 12/03/24 History
(3 mL) subcutaneous pen (Novolog Diabetes
FlexPen U-100 Insulin aspart)
insulin glargine 100 unit/mL 30 - 35 units SC HS Diabetes 07/28/23 12/03/24 History
subcutaneous solution (Lantus
U-100 Insulin)
magnesium oxide 500 mg PO QPM Supplement 10/18/24 12/03/24 History
metolazone 5 mg tablet 5 mg PO MOWEFR Fluid 10/18/24 12/03/24 History
Retention/Swelling
cholecalciferol (vitamin D3) 50 2,000 units PO DAILY Supplement 10/20/24 12/03/24 History
mcg (2,000 unit) tablet
clopidogrel 75 mg tablet 75 mg PO DAILY Blood Clot 10/20/24 12/03/24 History
Prevention/Tx
potassium chloride 20 mEq 40 meq PO BID Electrolyte Repletion 10/20/24 12/03/24 History
tablet,extended
release(part/cryst) (Klor-Con M)
apixaban 5 mg tablet (Eliquis) 5 mg PO BID Blood Clot 12/04/24 12/03/24 History
Prevention/Tx
hydralazine 10 mg tablet 10 mg PO BID Blood Pressure 12/04/24 12/03/24 History
isosorbide mononitrate 30 mg 30 mg PO DAILY Heart 12/04/24 12/03/24 History
tablet,extended release 24 hr Disease/Condition
Review of Systems
-
History Source: Patient
Constitutional: No Symptoms
Physical Exam
Vital Signs
Temp Pulse Resp BP Pulse Ox
98.3 F 76 18 120/55 95
12/05/24 03:29 12/05/24 03:29 12/05/24 03:29 12/05/24 03:29 12/05/24 03:29
Lab Results
12/05/24 06:01
12/05/24 06:01
Troponin I 0.035 ng/ml H* 12/04/24 17:31
GEN: No distress, awake, Ox3
HEENT: supple, anicteric, mmm
LUNGS: CTA, no wheezes/rales
CV: Reg, S1/S2, no murmur
ABD: soft, BS+, NT/ND
EXT: No edema
NEURO: Gross non-focal
SKIN: No rash
Impression / Plan
-
PCP: Suzy Guillen
Primary papeterie table assembler, Johnathan Carson MD
Impression:
Syncope
Epistaxis
Anemia
Persistent atrial fibrillation status post AV georges ablation and permanent pacemaker 2019
CAD status post LAD stent 2015
Chronic heart failure preserved EF
Nonsustained VT
CVA 2020 (transitioned to Plavix from ASA at this time)
Hypertension
Chronic kidney disease stage IV
Type 2 diabetes
Obstructive sleep apnea
Recent shingles 10/2024
Previous cardiovascular diagnostic testing:
Cardiac cath 09/09/2023:
RA 18, PA 56/32, PCWP 28, CO/CI 5.1/2.2, SVR 1041
Left main: 10 to 20% distal tapering
LAD: Previously placed mid LAD stent patent, eccentric 40 to 50% stenosis proximal to mid LAD stent, diffuse atherosclerotic plaque\\
Diagonal: 50% proximal
Circumflex: 30 to 40% mid circumflex stenosis
RCA: Mild diffuse atherosclerotic plaque
Echo: 07/24/2023: EF 43%, akinesis basal inferior near inferior septal kovacs with septal dyskinesis, moderate cLVH, normal RV size and function, mild to moderate MR, mild AI, PASP 3943 mmHg, compared to previous echo 04/08/2021 EF previously 45 to 50%
Lexiscan nuclear stress test 07/20/2023: Mild mid apical, anterior ischemia, basal mid inferior, inferior lateral scar with inferior soft tissue attenuation
Plan:
74-year-old male presents to ED following syncopal episode in setting of 1 month history of intermittent epistasis and dark stools. Complex pt with h/o permanent atrial fibrillation on chronic OAC with Eliquis, CAD s/p LAD stent 2015 on chronic
Plavix, pacemaker and AV georges ablation 07/2020 (Medtronic EXPLOSIVE OPERATOR SUPERVISOR pacemaker with His bundle area lead in the LV port and standard RV lead in the RV port), ischemic cardiomyopathy, LVEF 40 to 45%, cerebellar CVA 2020, chronic systolic and diastolic
heart failure,NSVT on device interrogations, progressive chronic kidney disease stage IV (creatinine mid 2s) hypertension, hyperlipidemia, insulin-dependent type 2 diabetes mellitus, recent shingles involving face, mouth, and naris affecting his
ability to eat.
Recently seen by Dr. Carson 11/10/2024 device reprogrammed in an effort to more fully conduction system pace him. Output of RV pacing lead programmed to noncapture so capturing only through the HIS bundle lead. Base pacing rate was increased
from 60 to 70 bpm with intention to improve his cardiac resynchronization pacing percentage. Diuretics decreased as volume status was thought to be improved and he was mildly orthostatic with increasing creatinine.
Initial workup revealed hemoglobin 9.4, BUN 161, creatinine 2.8, K3.4, NA 133. Diuretics and antihypertensives, Eliquis initially held. Required repeat cauterization of left nares (had this during admission 10/2024 as well)
He was gently hydrated upon admission and antihypertensives and diuretics including carvedilol, isosorbide, furosemide, metolazone held. Eliquis held. He was seen by ENT and had cauterization of left nares.
Hemoglobin stable and Eliquis resumed. Carvedilol resumed at 6.25 mg twice daily. Patient scheduled for echo today.
No longer having lightheadedness. Denies shortness of breath, chest pain, palpitations, edema, PND, orthopnea.
Syncope:
- Pacemaker remotely interrogated today and no VT on day of episode. Syncope likely orthostatic in nature given associated dizziness with standing and hypotension upon arrival in ED
- Remote interrogation of pacemaker shows OptiVol fluid index low consistent with patient not being volume overloaded.
- Slow reintroduction of Usual home heart failure regiment including carvedilol, isosorbide, hydralazine. Not on DEBBY, ARB, spironolactone due to chronic kidney disease
- Checking updated echo today
-Hgb has been stable in low 9s.
-Blood pressures improving to 120s/ 60s.
-cont compression stockings, on during day, off at night
Permanent atrial fibrillation-
-he is status post AV georges ablation in 2020. Pacemaker dependent.
- On chronic oral anticoagulation with Eliquis.
-Given persistent nose bleeds in setting of chronic oral anticoagulation for afib and chronic antiplatelet agent for CAD, may be a candidate for a Watchman left atrial appendage closure device. Will arrange for outpatient follow-up
for evaluation.
- Telemetry personally reviewed: V paced with PVCs, rare ventricular couplet
CAD-
Status post LAD stent in 2016, on chronic Plavix
-cardiac cath 08/2023 with patent LAD stent, non obstructive dz other arteries and proximal to LAD stent
-cont Plavix
-continue beta day
-cont high intensity statin with LDL goal <55
-denies chest pain
-troponin 0.039->0.035
-elevated troponin likely nonischemic myocardial injury
HFmildly reduced EF/ischemic CM
- Had Medtronic EXPLOSIVE OPERATOR SUPERVISOR pacemaker placed 07/2020 in setting of needing AV georges ablation for A-fib with RVR and history of heart failure, reduced EF
-EF improved from 35% to 43%
-On carvedilol 50 mg twice daily, hydralazine 10 mg twice daily, and isosorbide 30 mg daily in outpatient setting. Currently hydralazine and isosorbide on hold due to hypotension/syncope. Carvedilol restarted at lower dose of 0.625 mg twice daily.
Can uptitrate to 12.5 mg twice daily
-Diuretics on hold given hypotensive, monitor volume status and cautiously resume. In outpt setting on Lasix 80 mg bid and Metolazone 5 mg 2 x week. May need to hold Metolazone.
- At last office visit, plan was to repeat echocardiogram and if LVEF less than 35%, discuss upgrade to ICD
Data Reviewed
-
EKG: Tracing Personally Visualized and interpreted
Medical Tests (Nuc Med, Echo etc): Image Personally Visualized and interpreted
Labs: Labs Reviewed by me
[2024-12-05 08:09] LABS: Glucose - Point of Care 201 mg/dl (70-99)
[2024-12-05] MEDS: VITAMIN D3 (cholecalciferol) 50 MCG PO (08:45)
[2024-12-05] MEDS: ELIQUIS 5 MG PO ×2 (08:45→21:26)
[2024-12-05] MEDS: COREG 6.25 MG PO ×2 (08:45→21:25)
[2024-12-05] MEDS: LIPITOR 80 MG PO (08:45)
[2024-12-05] MEDS: KCL 40 MEQ PO ×2 (08:45→21:26)
[2024-12-05] MEDS: PLAVIX 75 MG PO (08:46)
[2024-12-05] MEDS: PROTONIX 40 MG PO (08:46)
[2024-12-05] MEDS: NOVOLOG FLEXPEN-HIGH RESISTANCE 4 UNITS SC ×2 (08:46→18:26)
[2024-12-05] MEDS: OCEAN, SALINE MIST 2 SPRAYS NASAL ×4 (08:46→21:27)
[2024-12-05 10:21] VITALS: BP 114/54; BP 94/52; PULSE 75
--- NOTE | 2024-12-05 10:37 | W.CARD.DEVCH ---
Cardiac Device Check
-
Device: Pacemaker
Milliner Helper: Medtronic
The patient's device was interrogated with assistance of the device patient representative followed by a complete physician review. The device had normal function. No abnormalities seen.
MANUFACTURING ENGINEER MACHINING pacing less than 90%, although percentage has increased from last interrogation when he was V paced 76% and is now V paced 80%. Short runs NSVT 6-7 beats, self terminating
[2024-12-05 11:34] LABS: Iron 45 ug/dl (49-181)
[2024-12-05 11:43] LABS: Percent Saturation 13 % (20-50); Total Iron Binding Capacity 342 ug/dl (261-462)
[2024-12-05 12:34] LABS: Glucose - Point of Care 189 mg/dl (70-99)
[2024-12-05 12:48] LABS: Ferritin 25.9 ng/ml (17.9-464.0)
[2024-12-05 12:53] LABS: NT-proBNP 1560 pg/ml
[2024-12-05] MEDS: NOVOLOG FLEXPEN-HIGH RESISTANCE 2 UNITS SC (13:31)
--- NOTE | 2024-12-05 14:19 | W.PN.HOSP.TC ---
Today's Communication/Plan
-
reduction in coreg, holding nitrate and hydral
neuro consulted for continuation of plavix in patient with hx of cva
Assessment / Plan
Assessment / Plan
Mr. Johnathan Kumar is a 74-year-old male with hx CAD status post LAD stenting 2016, chronic HFpEF, paroxysmal atrial fibrillation status post ablation with permanent pacemaker, nonsustained ventricular tachycardia, CVA with mild right hemiparesis
and left visual deficit, hypertension, type 2 diabetes, CKD 4, GERD, obesity, obstructive sleep apnea, gout, presenting for syncopal episode. Patient has had intermittent epistaxis over past year; particularly severe past month. Night prior to
admission he had epistaxis followed by syncopal episode.
Syncopal episode likely vasovagal in setting of epistaxis versus orthostasis in setting of home BP regimen. Patient's SBP low 100's off home BP regimen (Coreg 50 BID, Imdur 30QD, Hydral 10 BID)
-EKG shows ventricular paced rhythm
-CT head shows no acute abnormality
-s/p IVF
-monitor on telemetry - intermittent PVC's
-TTE
-Cards consulted
Ongoing persistent epistaxis from left nostril
-Underwent cauterization last month during hospitalization by ENT
L epistaxis due to eliquis, plavix, uremia, severe rhinitis sicca
-appreciate ENT consult, s/p left nostril cauterization; nasal saline ordered; humidifer for CPAP recommended
-Resumed Eliquis
-Plavix - on hold from cards - although due to hx of cva - he should be back on it in the next few days
-Neuro consulted for possible dc of plavix
Melena likely secondary to epistaxis
Uremia 2/2 to epistaxis
- BUN of 161
- Continue 40 oral Protonix
Essential hypertension
- Hold hydralazine, Imdur, given low BP and syncope
-resume Coreg at lower dosing 6.25mg PO BID and monitor BP today
Chronic HFpEF
- lower dose Coreg, hold metolazone
-TTE 08/08 with EF 43%, mild to moderate MR
-repeat TTE
- Cardiology consul
Hypokalemia secondary to metolazone
- Replete potassium
# Hyperglycemia
# Type 2 diabetes
- Blood sugar 301
- Continue Lantus 30 units, high-dose insulin sliding scale in place of 20 to 35 units NovoLog
CAD status post LAD stenting in 2015
- Continue statin
- holding Plavix as per Cards
- Hold Imdur
- resume lower dose Coreg
Paroxysmal atrial fibrillation status post ablation with permanent pacemaker
- resume Eliquis later this evening
Nonsustained ventricular tachycardia
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
-Plavix as per neuro
-on ELiquis
-Neuro consulted
Recent shingles of right face V2 distribution
- Completed treatment and improving
CKD 4
- Renal function at baseline
GERD
- Continue Protonix
Obesity
Obstructive sleep apnea
Gout
- Continue allopurinol
Full code
DVT prophylaxis�SCDs
Cardiac diet
Total time spent on today's encounter was 50 minutes which included time spent in counseling the patient/family regarding diagnosis and treatment plan as listed above, goals of care, and symptom management. Case was discussed with nursing staff,
specialists, and care coordinators/case management. All labs and imaging personally reviewed by me. Remainder the time spent in detailed review of previous records, lab data, imaging, and other medical provider documentation.
Anticipated Discharge: 24 - 48 hours
Subjective/Interval History
-
Date of Service: December 05, 2024
no acute events, was orthostatic yesterday
Objective Data
-
Labs:
Laboratory Results
12/05/24
06:01
WBC 9.9
Hgb 9.3 L
Hct 30.1 L
Plt Count 276
Sodium 137
Potassium 4.1
Chloride 98
Carbon Dioxide 26
BUN 121 H*
Creatinine 2.3 H
Glucose 218 H
Calcium 9.9
Vital Signs:
Vital Signs
Temp Pulse Resp BP Pulse Ox
97.9 F 72 18 127/65 99
12/05/24 07:30 12/05/24 08:45 12/05/24 07:30 12/05/24 08:45 12/05/24 08:30
I&O
12/04/24 12/05/24 12/06/24
06:59 06:59 06:59
Intake Total 980 / 980 600 / 600
Output Total 800 / 800 275 / 275
Balance 180 / 180 325 / 325
Review of Systems
-
History Source: Patient
All other systems: Not reviewed unless documented
Physical Exam
-
General: No Apparent Distress
HEENT: PERRLA
Respiratory: Clear to Auscultation; Negative Wheezes
Cardiac: Regular Rhythm and S1/S2
GI: Soft and Nontender
Musculoskeletal: No Edema
Skin: Warm and Dry; Negative Rash
Neuro: AO x 3
Psych: Calm
Data Reviewed
-
CT Scan: Report Reviewed by me
Labs: Labs Reviewed by me
--- NOTE | 2024-12-05 14:35 | CON.NEURO ---
Consultation
Order
Date of Consultation: 12/05/24
Requesting Provider: Logan Gonsalves MD
Reason for Consult: Stroke management
Neurology Consultation Note.
HPI: This is a 74-year-old RH man who presented to the [facility] on December 03, 2024 with epistaxis followed by syncopal episode. Mr. Dumont states that on 12/02/2024, he lost consciousness after using the bathroom. He stood up from the
toilet, felt fine initially, but then collapsed upon opening the door to enter the bedroom. He denies hitting his head but mentions that his tailbone is sore. About three hours later, around 5 AM, he experienced another episode of weakness and
imbalance while taking his medications. He felt weak, had to lean on the vanity for support, and was staggering when trying to return to bed.
Mr. Quintero reports ongoing pain and soreness in the area where he had shingles, specifically on his nose and the surrounding region. He describes the area as 'sore to touch' and mentions that his nose is still 'about to stab.' The pain is
significant enough that he has modified his face-washing routine, now dabbing instead of rubbing the affected area.
Regarding his stroke history, Mr. Dumont recalls developing an acute imbalance and R hand incoordination in 2020. He was unable to feed himself or perform daily activities and had to relearn these skills. His speech and vision were not affected.
Currently, he notes that his function has mostly returned, though he occasionally experiences slight tremors when lifting heavy objects with his right hand.
The patient's current medication regimen includes Eliquis and Plavix. He reports taking Eliquis consistently since before his stroke and mentions that Plavix was added to his regimen following the stroke.
ER VS: 87/53-83/51, afebrile.
EKG: vpaced, QTc Int : 550 ms
PDMP:none
Labs: Glucose�301, sodium�133, creatinine�2.8 hemoglobin�9.3, normal platelets, hemoglobin A1c�7.2.
CT head wo contrast�moderate atrophy
PMH: R V2 herpes Zoster(10/22/2024), stroke (2020) with residual mild right dysmetria LA thrombus, A-Fib, NSVT, CAD, chronic HFpEF, HTN, DLP, DM, CKD, GERD, gout QUENTIN, BMI 28, nephrolithiasis,
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
FH: Mother in her 80s had pacemaker, diabetes; father at 73 from CAD
All: Lisinopril, acetaminophen, metformin
ROS: Constitutional: Negative. Negative for chills, fever and unexpected weight change.
HENT: Positive for recurrent nosebleed
Eyes: Negative. Negative for photophobia, pain and visual disturbance.
Respiratory: Negative for cough, choking and shortness of breath.
Cardiovascular: Positive for syncope
Gastrointestinal: Positive for melena
Endocrine: Negative. Negative for cold intolerance.
Genitourinary: Negative for dysuria, flank pain and urgency.
Musculoskeletal: Negative for back pain, gait problem, neck pain and neck stiffness.
Skin: Negative for rash.
Allergic/Immunologic: Negative. Negative for immunocompromised state.
Neurological: Positive for chronic mild right arm clumsiness.
Psychiatric/Behavioral: Negative for behavioral problems, confusion and hallucinations.
General: Well developed. In no acute distress.
Cardio: Regular rate and rhythm without murmur. Extremities are without cyanosis or edema.
Neuro:
Mental Status: Alert, oriented to person, place, and date. Normal attention and recall. Good fund of knowledge. Follows complex requests across the midline. Comprehension, naming, and repetition intact. Immediate recall 3/3.
Cranial Nerves: Pupils are equally round and reactive to light. EOMs full. Visual young full to confrontation. No ptosis. No nystagmus. V1-V3 intact to light touch and pinprick bilaterally, symmetric. Face symmetric. Poor hearing AU. The
palate elevated well. SCMs and traps 5/5. Tongue midline. No dysarthria.
Motor: Normal bulk and tone. No pronator or arm drift. Strength 5/5 throughout. No clonus.
Reflexes: Negative grasp bilaterally.
Sensory: Normal light touch
Coordination: Mild right dysmetria
Gait: deferred
Assessment and Plan:
I. History of chronic, probable right cerebellar vs BG stroke
II. Paroxysmal A-fib
III. Subacute R V2 Herpes Zoster
-Continue Telemetry monitoring
-No indications for Plavix therapy from neurologic perspective
-Continue Eliquis for stroke prevention
-HbA1C goal>7, LDL goal <70
-Consider starting Neurontin for symptomatic management of facial paresthesias if pain worsens and persists >90 days�
-DVT prophylaxis.
-Outpatient neurology follow-up
- Please recall neurology services any questions or concerns
I personally reviewed all radiology and labs along with past medical records pertinent to current medical problems. Total time spent in patient care is 60 minutes.
Thank you for allowing us to participate in the care of this patient. Please do not hesitate to contact us with any questions or concerns.
Subjective/Objective
Subjective Data
Date of Service: December 05, 2024
Objective Data
Vital Signs
Temp Pulse Resp BP Pulse Ox
36.6 C 72 18 127/65 99
12/05/24 07:30 12/05/24 08:45 12/05/24 07:30 12/05/24 08:45 12/05/24 08:30
Lab Results
12/05/24 06:01
12/05/24 06:01
PT 19.9 Sec (11.4-14.6) H 12/03/24 18:16
INR 1.67 12/03/24 18:16
APTT 36.0 Sec (23.4-35.0) H 12/03/24 18:16
Sodium 137 mmol/L (135-145) 12/05/24 06:01
Potassium 4.1 mmol/L (3.5-5.1) 12/05/24 06:01
BUN 121 mg/dl (9-20) H* 12/05/24 06:01
Glucose 218 mg/dl (70-99) H 12/05/24 06:01
Calcium 9.9 mg/dl (8.4-10.2) 12/05/24 06:01
Osk-M-Egcsvobxobq Pept 1560 pg/ml 12/05/24 06:01
Patient Allergies
acetaminophen Allergy (Verified 12/03/24 18:06)
cough
lisinopril Allergy (Verified 12/03/24 18:06)
cough
metformin Allergy (Verified 12/03/24 18:06)
renal failure
Medications
-
Active Medications
Generic Name Dose Route Start Last Admin
Trade Name Freq PRN Reason Stop Dose Admin
Allopurinol 50 mg 12/04/24 12:00 12/04/24 11:42
Allopurinol 100 Mg Tablet PO 01/01/25 11:59 50 mg
Q48H SONI Administration
Apixaban 5 mg 12/04/24 20:00 12/05/24 08:45
Apixaban (Eliquis) 5 Mg Tablet PO 01/01/25 19:59 5 mg
BID SONI Administration
Atorvastatin Calcium 80 mg 12/04/24 08:00 12/05/24 08:45
Atorvastatin (Lipitor) 80 Mg Tablet PO 01/01/25 07:59 80 mg
DAILY SONI Administration
Carvedilol 6.25 mg 12/04/24 12:00 12/05/24 08:45
Carvedilol 6.25 Mg Tablet PO 01/01/25 11:59 6.25 mg
BID SONI Administration
Cholecalciferol 50 mcg 12/04/24 08:00 12/05/24 08:45
Cholecalciferol (Vitamin D3) 50 Mcg Tablet (2,000 Units) PO 01/01/25 07:59 50 mcg
DAILY SONI Administration
Dextrose 12.5 grams 12/03/24 21:39
Dextrose 50% (0.5 Grams/Ml) 50 Ml Syringe IV 12/31/24 21:38
[id number] PRN
hypoglycemia
Protocol
Glucagon 1 mg 12/03/24 21:39
Glucagon 1 Mg Vial IM 12/31/24 21:38
PRN PRN
hypoglycemia
Protocol
Insulin Glargine 30 units/ 0.3 mls @ 0 mls/hr 12/04/24 10:58 12/04/24 22:21
Device SC 12/31/24 21:59 0.3 mls
HS SONI Administration
As Directed
Insulin Aspart 0 units 12/04/24 07:30 12/05/24 13:31
Insulin Aspart High Resistance 300 Units/3 Ml Pen.Injctr SC 01/01/25 07:29 2 units
AC SONI Administration
Protocol
Magnesium Oxide 500 mg 12/04/24 18:00 12/04/24 17:04
Magnesium Oxide 500 Mg Tablet PO 01/01/25 17:59 500 mg
QPM SONI Administration
Pantoprazole Sodium 40 mg 12/04/24 08:00 12/05/24 08:46
Pantoprazole 40 Mg Delayed Release Tablet PO 01/01/25 07:59 40 mg
DAILY SONI Administration
Potassium Chloride 40 meq 12/04/24 08:00 12/05/24 08:45
Potassium Chloride 20 Meq Extended Release Tablet PO 01/01/25 07:59 40 meq
BID SONI Administration
Sodium Chloride 0 flush 12/03/24 22:00 12/03/24 22:46
Sodium Chloride 0.9% (Flush) Syringe IV 12/31/24 21:59 1 flush
PER PROTOCOL SONI Administration
Sodium Chloride 2 sprays 12/04/24 13:00 12/05/24 13:31
Sodium Chloride 0.65% Nasal [place] 45 Ml Bottle NASAL 01/01/25 12:59 2 sprays
QID SONI Administration
Home Medications
�Medication �Instructions �Recorded
pantoprazole 40 mg tablet,delayed 40 mg PO DAILY #30 tabs 04/19/21
release
allopurinol 300 mg tablet 300 mg PO DAILY Gout 07/28/23
atorvastatin 80 mg tablet 80 mg PO DAILY High Cholesterol 07/28/23
carvedilol 25 mg tablet 50 mg PO BID Blood Pressure 07/28/23
insulin aspart U-100 100 unit/mL 20 - 35 sliding scale dose SC AC 07/28/23
(3 mL) subcutaneous pen (Novolog Diabetes
FlexPen U-100 Insulin aspart)
insulin glargine 100 unit/mL 30 - 35 units SC HS Diabetes 07/28/23
subcutaneous solution (Lantus
U-100 Insulin)
magnesium oxide 500 mg PO QPM Supplement 10/18/24
metolazone 5 mg tablet 5 mg PO MOWEFR Fluid 10/18/24
Retention/Swelling
cholecalciferol (vitamin D3) 50 2,000 units PO DAILY Supplement 10/20/24
mcg (2,000 unit) tablet
clopidogrel 75 mg tablet 75 mg PO DAILY Blood Clot 10/20/24
Prevention/Tx
potassium chloride 20 mEq 40 meq PO BID Electrolyte Repletion 10/20/24
tablet,extended
release(part/cryst) (Klor-Con M)
apixaban 5 mg tablet (Eliquis) 5 mg PO BID Blood Clot 12/04/24
Prevention/Tx
hydralazine 10 mg tablet 10 mg PO BID Blood Pressure 12/04/24
isosorbide mononitrate 30 mg 30 mg PO DAILY Heart 12/04/24
tablet,extended release 24 hr Disease/Condition
Vital Signs and Labs
-
Vital Signs and Labs:
Vital Signs
Temp Pulse Resp BP Pulse Ox
36.8 C 71 18 108/56 97
04/21/25 15:15 12/05/24 15:15 12/05/24 15:15 12/05/24 15:15 12/05/24 15:15
Lab Results
12/05/24 06:01
12/05/24 06:01
PT 19.9 Sec (11.4-14.6) H 12/03/24 18:16
INR 1.67 12/03/24 18:16
APTT 36.0 Sec (23.4-35.0) H 12/03/24 18:16
Sodium 137 mmol/L (135-145) 12/05/24 06:01
Potassium 4.1 mmol/L (3.5-5.1) 12/05/24 06:01
BUN 121 mg/dl (9-20) H* 12/05/24 06:01
Glucose 218 mg/dl (70-99) H 12/05/24 06:01
Calcium 9.9 mg/dl (8.4-10.2) 12/05/24 06:01
Lrx-E-Rzipntlmolq Pept 1560 pg/ml 12/05/24 06:01
Medications
-
Medications:
Generic Name Dose Route Start Last Admin
Trade Name Freq PRN Reason Stop Dose Admin
Allopurinol 50 mg 12/04/24 12:00 12/04/24 11:42
Allopurinol 100 Mg Tablet PO 01/01/25 11:59 50 mg
Q48H SONI Administration
Apixaban 5 mg 12/04/24 20:00 12/05/24 08:45
Apixaban (Eliquis) 5 Mg Tablet PO 01/01/25 19:59 5 mg
BID SONI Administration
Atorvastatin Calcium 80 mg 12/04/24 08:00 12/05/24 08:45
Atorvastatin (Lipitor) 80 Mg Tablet PO 01/01/25 07:59 80 mg
DAILY SONI Administration
Carvedilol 6.25 mg 12/04/24 12:00 12/05/24 08:45
Carvedilol 6.25 Mg Tablet PO 01/01/25 11:59 6.25 mg
BID SONI Administration
Cholecalciferol 50 mcg 12/04/24 08:00 12/05/24 08:45
Cholecalciferol (Vitamin D3) 50 Mcg Tablet (2,000 Units) PO 01/01/25 07:59 50 mcg
DAILY SONI Administration
Dextrose 12.5 grams 12/03/24 21:39
Dextrose 50% (0.5 Grams/Ml) 50 Ml Syringe IV 12/31/24 21:38
[id number] PRN
hypoglycemia
Protocol
Glucagon 1 mg 12/03/24 21:39
Glucagon 1 Mg Vial IM 12/31/24 21:38
PRN PRN
hypoglycemia
Protocol
Insulin Glargine 30 units/ 0.3 mls @ 0 mls/hr 12/04/24 10:58 12/04/24 22:21
Device SC 12/31/24 21:59 0.3 mls
HS SONI Administration
As Directed
Insulin Aspart 0 units 12/04/24 07:30 12/05/24 13:31
Insulin Aspart High Resistance 300 Units/3 Ml Pen.Injctr SC 01/01/25 07:29 2 units
AC SONI Administration
Protocol
Magnesium Oxide 500 mg 12/04/24 18:00 12/04/24 17:04
Magnesium Oxide 500 Mg Tablet PO 01/01/25 17:59 500 mg
QPM SONI Administration
Pantoprazole Sodium 40 mg 12/04/24 08:00 12/05/24 08:46
Pantoprazole 40 Mg Delayed Release Tablet PO 01/01/25 07:59 40 mg
DAILY SONI Administration
Potassium Chloride 40 meq 12/04/24 08:00 12/05/24 08:45
Potassium Chloride 20 Meq Extended Release Tablet PO 01/01/25 07:59 40 meq
BID SONI Administration
Sodium Chloride 0 flush 12/03/24 22:00 12/03/24 22:46
Sodium Chloride 0.9% (Flush) Syringe IV 12/31/24 21:59 1 flush
PER PROTOCOL SONI Administration
Sodium Chloride 2 sprays 12/04/24 13:00 12/05/24 13:31
Sodium Chloride 0.65% Nasal U[place]ling 45 Ml Bottle NASAL 01/01/25 12:59 2 sprays
QID SONI Administration
Home Medications
-
Home Medications
pantoprazole 40 mg tablet,delayed release 40 mg PO DAILY #30 tabs 04/19/21
allopurinol 300 mg tablet 300 mg PO DAILY Gout 07/28/23
atorvastatin 80 mg tablet 80 mg PO DAILY High Cholesterol 07/28/23
carvedilol 25 mg tablet 50 mg PO BID Blood Pressure 07/28/23
insulin aspart U-100 100 unit/mL (3 mL) subcutaneous pen (Novolog FlexPen U-100 Insulin aspart) 20 - 35 sliding scale dose SC AC Diabetes 07/28/23
insulin glargine 100 unit/mL subcutaneous solution (Lantus U-100 Insulin) 30 - 35 units SC HS Diabetes 07/28/23
magnesium oxide 500 mg PO QPM Supplement 10/18/24
metolazone 5 mg tablet 5 mg PO MOWEFR Fluid Retention/Swelling 10/18/24
cholecalciferol (vitamin D3) 50 mcg (2,000 unit) tablet 2,000 units PO DAILY Supplement 10/20/24
clopidogrel 75 mg tablet 75 mg PO DAILY Blood Clot Prevention/Tx 10/20/24
potassium chloride 20 mEq tablet,extended release(part/cryst) (Klor-Con M) 40 meq PO BID Electrolyte Repletion 10/20/24
apixaban 5 mg tablet (Eliquis) 5 mg PO BID Blood Clot Prevention/Tx 12/04/24
hydralazine 10 mg tablet 10 mg PO BID Blood Pressure 12/04/24
isosorbide mononitrate 30 mg tablet,extended release 24 hr 30 mg PO DAILY Heart Disease/Condition 12/04/24
[2024-12-05 15:15] VITALS: BP 108/56
[2024-12-05] MEDS: MAGNESIUM OXIDE 500 MG PO (17:22)
[2024-12-05 17:55] LABS: Glucose - Point of Care 221 mg/dl (70-99)
[2024-12-05 19:46] VITALS: BP 118/59
[2024-12-05 21:12] LABS: Glucose - Point of Care 245 mg/dl (70-99)
[2024-12-05] MEDS: LANTUS 0.3 UNITS SC (21:26)
[2024-12-05 23:09] VITALS: BP 102/51
[2024-12-06 03:17] VITALS: BP 114/50
[2024-12-06 06:00] VITALS: BMI 28.5
[2024-12-06 06:28] LABS: Hematocrit 31.1 % (39.0-52.0); Hemoglobin 9.5 g/dL (13.0-18.0); Mean Corp Hgb Conc. 30.5 g/dL (33.0-37.0); Mean Corpuscular Hgb 24.4 pg (27.0-31.0); Mean Corpuscular Volume 79.7 fL (80.0-94.0); Mean Platelet Volume 9.6 fL (7.4-10.4); Platelet Count 279 10^3/uL (130-400); Red Cell Dist. Width 17.7 % (11.5-14.5); White Blood Cell Count 10.6 10^3/uL (4.8-10.8)
[2024-12-06 06:51] LABS: Blood Urea Nitrogen 101 mg/dl (9-20); Calcium 10.2 mg/dl (8.4-10.2); Carbon Dioxide 29 mmol/L (22-30); Chloride 102 mmol/L (98-107); Estimated Creatinine Clearance 35 ml/min; Glucose 179 mg/dl (70-99); Sodium 138 mmol/L (135-145); eGFR 34.59
[2024-12-06 07:35] VITALS: BP 113/62
[2024-12-06 07:45] LABS: Glucose - Point of Care 175 mg/dl (70-99)
[2024-12-06] MEDS: NOVOLOG FLEXPEN-HIGH RESISTANCE 2 UNITS SC (08:56)
[2024-12-06] MEDS: VITAMIN D3 (cholecalciferol) 50 MCG PO (08:57)
[2024-12-06] MEDS: COREG 6.25 MG PO (08:57)
[2024-12-06] MEDS: LIPITOR 80 MG PO (08:57)
[2024-12-06] MEDS: ELIQUIS 5 MG PO (08:57)
[2024-12-06] MEDS: KCL 40 MEQ PO (08:57)
[2024-12-06] MEDS: PROTONIX 40 MG PO (08:57)
[2024-12-06] MEDS: OCEAN, SALINE MIST 2 SPRAYS NASAL ×2 (08:58→12:57)
[2024-12-06 09:20] VITALS: BP 107/50; BP 113/57; BP 129/59; PULSE 73; PULSE 79; PULSE 80
--- NOTE | 2024-12-06 10:12 | PTCARENOTE ---
09:40 Pt had a 10-12 beat run of V-tach. Pt asymptomatic. Pt's ortho static VS - Lying-113/57 HR$-79,Sitting 129/59 HR 73, Standing 107/50 HR 80- Pt offers no complaints. Dr. Morrison and Dr. Gonsalves made aware. Will continue to assess patient
status.
--- NOTE | 2024-12-06 10:46 | W.PN.CARDCBS ---
Addendum entered and electronically signed by Ariana Boyd PA-C 12/06/24 15:09:
Reviewed with EP and plan is to arrange for close hospital follow up, scheduled for 12/15/24. Will cont with lower dose of Coreg at 6.25 mg BID. Hydralazine and Imdur ER have been stopped. Eliquis has been continued. Plavix has been stopped. Restart
Lasix 80 mg PO BID and lower dose of metolazone 5 mg TuFr only. Reviewed with patient in room again and also with hospitalist via TT and the plan is for d/c to home today.
Addendum entered and electronically signed by Jared Spencer MD 12/06/24 11:41:
I saw and examined the patient.
The REMOVABLE PROSTHODONTIST or PA's note was reviewed and I agree with the note.
Comment: General: Well developed, well nourished in NAD.
Neck: Supple, no JVD, HJR, carotids +2 B/L, no bruits bilaterally.
Heart: Non displaced PMI, RRR, no murmurs, No S3, S4, no rubs.
Lungs: Scattered rhonchi
Extremities: No clubbing, cyanosis or edema bilaterally.
Neuro: Grossly nonfocal, awake, alert and oriented x3.
Syncope felt to be due to orthostasis. However ejection fraction has decreased to 30-35%. He also has had brief episodes of nonsustained V. tach with telemetry and also on pacemaker check. Could consider upgrading device to AICD and will discuss
with EP. No longer orthostatic.
Original Note:
Today's Communication / Plan
-
Cont lower dose Coreg
Not chronically on DEBBY/ARB/ARNI/aldosterone antagonist due to CKD 4
Imdur ER and hydralazine on hold due to hypotension
EF now down to 30-35% and having NSVT on tele, will review with EP regarding posisble upgrade to ICD
Remains on Eliquis and Plavix has been stopped with h/o CVA
Impression / Plan
-
PCP: Suzy Guillen
Primary door to door selling distributor: Johnathan Carson MD
Impression:
Syncope
Epistaxis
Anemia
Persistent atrial fibrillation status post AV georges ablation
Medtronic PPM (His and RV leads) 2019
CAD s/p LAD stent 2015
Chronic heart failure preserved EF
NSVT
CVA 2020
transitioned from aspirin to to Plavix at this time
Hypertension
Chronic kidney disease stage IV
Type 2 diabetes
Obstructive sleep apnea
Recent shingles 10/2024
Cardiac cath 09/09/2023:
RA 18, PA 56/32, PCWP 28, CO/CI 5.1/2.2, SVR 1041
Left main: 10 to 20% distal tapering
LAD: Previously placed mid LAD stent patent, eccentric 40 to 50% stenosis proximal to mid LAD stent, diffuse atherosclerotic plaque\\
Diagonal: 50% proximal
Circumflex: 30 to 40% mid circumflex stenosis
RCA: Mild diffuse atherosclerotic plaque
Echo: 07/24/2023: EF 43%, akinesis basal inferior near inferior septal kovacs with septal dyskinesis, moderate cLVH, normal RV size and function, mild to moderate MR, mild AI, PASP 3943 mmHg, compared to previous echo 04/08/2021 EF previously 45 to 50%
Echo 12/05/2024: EF 30 to 35%, global hypokinesis, mild concentric LVH, stage III diastolic dysfunction, normal RV size and function, moderate MR, mild aortic regurgitation, mild TR
Plan:
-Patient with syncope on admission, no correlating events on Medtr[employer] CUSTOMER RESPONSE REPRESENTATIVE (His and RV leads) PPM device check 12/05/24.
-Orthostatic VS reviewed by me, patient was asymptomatic and was not orthostatic by VS 12/06/24
-Syncope being managed as orthostasis.
-Outpatient dose of Coreg 50 mg BID reduced to 6.25 mg BID
-Outpatient dose of Imdur ER 30 mg daily has been held since admission due to syncope and hypotension
-Outpatient dose of hydralazine 10 mg BID has been held since admission due to syncope and hypotension
-Not on DEBBY, ARB, spironolactone due to chronic kidney disease
-EF was been up and down, EF was 30 to 35% by echo 07/2020 and then improved at 43% by echo 07/24/2023. Echo report from 11/2124 reviewed by me and summarized above, EF is now down in the 30 to 35% range.
-proBNP 1560 on admission compared to levels over 9500 with acute HF in the past. Do not suspect acute volume overload at this time
-Patient was taking Lasix 80 mg BID and metolazone 5 mg twice a week, both are on hold. Consider starting Lasix 40 mg BID on 12/06/2024 evening.
-Patient with known CKD 4 and Cre on admission was 2.8, but improved to 2.0 on labs reviewed by me 12/06/2024. Baseline creatinine 2.1-2.5
-At last cardiology visit 11/10/24 the plan was to repeat echo and if EF less than 35% to upgrade to ICD. Will review with EP/primary door to door selling distributor to discuss upgrading to ICD
-Tele reviewed by me 12/06/24 and patient with NSVT. Will review with EP.
-Patient with epistaxis on admission. Patient with known permanent Afib and outpatient dose of Eliquis 5 mg BID has been continued
-Outpatient dose of Plavix has been stopped. Plavix had been added in the setting of CVA in 2020
-Patient with known permanent Afib. Eliquis as above. Consideration for watchman implant, this can be discussed as an outpatient.
-Patient is s/p AV node ablation and is pacer dependent
-Troponin was 0.039 on admission and trended down thereafter. Will manage as a nonischemic myocardial injury Troponin elevation. No WMA on echo, no chest pain.
HPI: 74-year-old male presents to ED following syncopal episode in setting of 1 month history of intermittent epistasis and dark stools. Complex pt with h/o permanent atrial fibrillation on chronic OAC with Eliquis, CAD s/p LAD stent 2016 on
chronic Plavix, pacemaker and AV georges ablation 07/2020 (Medtronic CUSTOMER RESPONSE REPRESENTATIVE pacemaker with His bundle area lead in the LV port and standard RV lead in the RV port), ischemic cardiomyopathy, LVEF 40 to 45%, cerebellar CVA 2020, chronic systolic and
diastolic heart failure,NSVT on device interrogations, progressive chronic kidney disease stage IV (creatinine mid 2s) hypertension, hyperlipidemia, insulin-dependent type 2 diabetes mellitus, recent shingles involving face, mouth, and naris
affecting his ability to eat.
Recently seen by Dr. Carson 11/10/2024 device reprogrammed in an effort to more fully conduction system pace him. Output of RV pacing lead programmed to noncapture so capturing only through the HIS bundle lead. Base pacing rate was increased
from 60 to 70 bpm with intention to improve his cardiac resynchronization pacing percentage. Diuretics decreased as volume status was thought to be improved and he was mildly orthostatic with increasing creatinine.
Initial workup revealed hemoglobin 9.4, BUN 161, creatinine 2.8, K3.4, NA 133. Diuretics and antihypertensives, Lucero initially held. Required repeat cauterization of left nares (had this during admission 10/2024 as well)
Progress Note - Process Development Associate
Subjective
Date of Service: December 06, 2024
He didn't feel dizzy with orthostatic VS today
Objective
Labs:
12/06/24 06:03
12/06/24 06:03
Labs
Hgb 9.5 g/dL (13.0-18.0) L 12/06/24 06:03
Hct 31.1 % (39.0-52.0) L 12/06/24 06:03
Plt Count 279 10^3/uL (130-400) 12/06/24 06:03
PT 19.9 Sec (11.4-14.6) H 12/03/24 18:16
INR 1.67 12/03/24 18:16
APTT 36.0 Sec (23.4-35.0) H 12/03/24 18:16
Sodium 138 mmol/L (135-145) 12/06/24 06:03
Potassium 5.0 mmol/L (3.5-5.1) 12/06/24 06:03
BUN 101 mg/dl (9-20) H* 12/06/24 06:03
Creatinine 2.0 mg/dL (0.7-1.3) H 12/06/24 06:03
Glucose 179 mg/dl (70-99) H 12/06/24 06:03
Troponins
12/04/24 12/04/24
11:22 17:31
Troponin I 0.039 H* 0.035 H*
Vital Signs and I&O:
Vital Signs
Temp Pulse Resp BP Pulse Ox
98.1 F 74 16 113/62 95
12/06/24 07:35 12/06/24 08:57 12/06/24 07:35 12/06/24 08:57 12/06/24 07:35
Vital Signs
Temp Pulse Resp BP Pulse Ox
98.1 F 74 16 113/62 95
12/06/24 07:35 12/06/24 08:57 12/06/24 07:35 12/06/24 08:57 12/06/24 07:35
Intake & Output
12/04/24 12/05/24 12/06/24 12/07/24
06:59 06:59 06:59 06:59
Intake Total 980 / 980 600 / 600 1320 / 1320
Output Total 800 / 800 275 / 275
Balance 180 / 180 325 / 325 1320 / 1320
Physical Exam
Physical Exam
GEN: AAOx3
HEENT: MMM
LUNGS: RA
CV: V paced
EXT: No edema
NEURO: Gross non-focal
SKIN: No rash
--- NOTE | 2024-12-06 11:16 | PN.CDI ---
CDI
- -
CDI:
Physician Documentation Request
Admit Date: 12/03/24 20:33
Dear Doctor Brina,
12/05 Cardiology Consult: 'HFmildly reduced EF/ischemic CM...EF improved from 35% to 43%'
12/05 Hospitalist PN: 'Chronic HFpEF - lower dose Coreg, hold metolazone'
Please provide further specificity regarding the most likely type of CHF you are evaluating, treating or monitoring.
mildly reduced
preserved
Other
Use of terms such as suspected, likely, concern for, or probable (associated with a specific diagnosis that is being evaluated, monitored, or treated as if it exists) are acceptable and can be coded in the inpatient setting, when documented at the
time of discharge.
Thank you,
Tessie Canales RN, BSN
CDI Specialist
Available via [place] text
Please use your independent medical judgment in providing your response.
[2024-12-06 11:25] VITALS: BP 112/65
--- NOTE | 2024-12-06 11:25 | PN.CDI ---
CDI
- -
CDI:
Physician Documentation Request
Admit Date: 12/03/24 20:33
Dear Doctor Brina,
12/05 Cardiology PN: 'Permanent atrial fibrillation-he is status post AV georges ablation in 2019. Pacemaker dependent.- On chronic oral anticoagulation with Eliquis.'
12/05 Hospitalist PN: 'Paroxysmal atrial fibrillation status post ablation with permanent pacemaker - resume Eliquis later this evening'
If possible, please provide further specificity regarding atrial fibrillation, such as:
Permanent atrial fibrillation - when a decision has been made to accept the presence of AF and there is no further attempt to restore or maintain sinus rhythm
Paroxysmal atrial fibrillation - terminates spontaneously or with intervention within 7 days of onset
Other - please specify
Use of terms such as suspected, likely, concern for, or probable (associated with a specific diagnosis that is being evaluated, monitored, or treated as if it exists) are acceptable and can be coded in the inpatient setting, when documented at the
time of discharge.
Thank you,
Tessie Canales RN, BSN
CDI Specialist
Available via [place] text
Please use your independent medical judgment in providing your response.
--- NOTE | 2024-12-06 11:46 | CM ---
Addendum entered by MARCI Stone 12/06/24 15:15:
Spoke with attending who confirmed that patient is cleared for discharge today. Met with patient. Reviewed IMM. It is signed on chart. Patient expressed no concerns.
Original Note:
Reviewed patient's PT, he is close to baseline. Spoke with attending who stated that patient is not stable for discharge today.
Plan: Case management will continue to follow and assist with discharge planning. Patient will return home when cleared.
[2024-12-06 11:58] LABS: Glucose - Point of Care 216 mg/dl (70-99)
[2024-12-06] MEDS: ZYLOPRIM 50 MG PO (12:01)
[2024-12-06] MEDS: NOVOLOG FLEXPEN-HIGH RESISTANCE 4 UNITS SC (12:01)
--- NOTE | 2024-12-06 13:18 | W.PN.HOSP.TC ---
Addendum entered and electronically signed by Logan Gonsalves MD 12/06/24 16:33:
[id number]
Addendum entered and electronically signed by Logan Gonsalves MD 12/06/24 15:26:
#New onset Acute HFreF
#Permanent atrial fibrillation
Addendum entered and electronically signed by Logan Gonsalves MD 12/06/24 15:15:
EP can follow up outpatient as per Cards.
Lasix 80 mg BID plus metolazone
lower dose of Coreg and eliminated hydralazine and Imdur.
F/u Cards, Neurology, PCP, ENT outpatient
F/u CBC within 1 week with pcp
More than 30 minutes spent in discharge including
Final examination of the patient
Summarizing hospital stay
Instructions for continuing care to all relevant caregivers
Preparation of discharge records, prescriptions, and referral forms
Total time spent (in minutes): 36
Original Note:
Today's Communication/Plan
-
EP eval for possible AICD
Assessment / Plan
Assessment / Plan
Mr. Johnathan Kumar is a 74-year-old male with hx CAD status post LAD stenting 2015, chronic HFpEF, paroxysmal atrial fibrillation status post ablation with permanent pacemaker, nonsustained ventricular tachycardia, CVA with mild right hemiparesis
and left visual deficit, hypertension, type 2 diabetes, CKD 4, GERD, obesity, obstructive sleep apnea, gout, presenting for syncopal episode. Patient has had intermittent epistaxis over past year; particularly severe past month. Night prior to
admission he had epistaxis followed by syncopal episode.
Syncopal episode
� Etiologies include cardiogenic including V. tach with EF of 30 to 35%, orthostatic hypotension, vasovagal with epistaxis
-EKG shows ventricular paced rhythm
-CT head shows no acute abnormality
-monitor on telemetry - intermittent PVC's
-TTE�EF 30 to 35%
-Cards consulted
Ongoing persistent epistaxis from left nostril
-Underwent cauterization last month during hospitalization by ENT
L epistaxis due to eliquis, plavix, uremia, severe rhinitis sicca
-appreciate ENT consult, s/p left nostril cauterization; nasal saline ordered; humidifer for CPAP recommended
-Resumed Eliquis
-Plavix -after discussion of cardiology, neurology: no longer needed
Melena likely secondary to epistaxis
Uremia 2/2 to epistaxis
�Improving
- Continue 40 oral Protonix
Essential hypertension
- Hold hydralazine, Imdur, given low BP and syncope
-resume Coreg at lower dosing 6.25mg PO BID and monitor BP today
#New onset HFrEF
Chronic HFpEF
- lower dose Coreg, hold metolazone
-TTE 08/08 with EF 43%, mild to moderate MR
-EF 30 to 35%, now with V. tach
� Cardiology discussing with EP to consider upgrading device to AICD
- Cardiology consul
Hypokalemia secondary to metolazone
- Replete potassium
# Hyperglycemia
# Type 2 diabetes
- Blood sugar 301
- Continue Lantus 30 units, high-dose insulin sliding scale in place of 20 to 35 units NovoLog
CAD status post LAD stenting in 2015
- Continue statin
-Eliquis
- Hold Imdur
- resume lower dose Coreg
Paroxysmal atrial fibrillation status post ablation with permanent pacemaker
- resume Eliquis later this evening
Nonsustained ventricular tachycardia
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
-Neurology consulted
-Stop Plavix, confirmed with neurology in setting of continued epistaxis
- F/u neurology outpt
-on ELiquis
-Neuro consulted
Recent shingles of right face V2 distribution
- Completed treatment and improving
CKD 4
- Renal function at baseline
GERD
- Continue Protonix
Obesity
Obstructive sleep apnea
Gout
- Continue allopurinol
Full code
DVT prophylaxis�SCDs
Cardiac diet
Total time spent on today's encounter was 51 minutes which included time spent in counseling the patient/family regarding diagnosis and treatment plan as listed above, goals of care, and symptom management. Case was discussed with nursing staff,
specialists, and care coordinators/case management. All labs and imaging personally reviewed by me. Remainder the time spent in detailed review of previous records, lab data, imaging, and other medical provider documentation.
Anticipated Discharge: Within 24 hours
Subjective/Interval History
-
Date of Service: December 06, 2024
No more epistaxis. EF noted to be 30 to 35%
Objective Data
-
Labs:
Laboratory Results
12/06/24
06:03
WBC 10.6
Hgb 9.5 L
Hct 31.1 L
Plt Count 279
Sodium 138
Potassium 5.0
Chloride 102
Carbon Dioxide 29
BUN 101 H*
Creatinine 2.0 H
Glucose 179 H
Calcium 10.2
Vital Signs:
Vital Signs
Temp Pulse Resp BP Pulse Ox
97.8 F 79 16 112/65 100
12/06/24 11:25 12/06/24 11:25 12/06/24 11:25 12/06/24 11:25 12/06/24 11:25
I&O
12/05/24 12/06/24 12/07/24
06:59 06:59 06:59
Intake Total 600 / 600 1320 / 1320
Output Total 275 / 275
Balance 325 / 325 1320 / 1320
Review of Systems
-
History Source: Patient
All other systems: Not reviewed unless documented
Physical Exam
-
General: No Apparent Distress
HEENT: PERRLA
Respiratory: Clear to Auscultation; Negative Wheezes
Cardiac: Regular Rhythm and S1/S2
GI: Soft and Nontender
Musculoskeletal: No Edema
Skin: Warm and Dry; Negative Rash
Neuro: AO x 3
Psych: Calm
Data Reviewed
-
CT Scan: Report Reviewed by me
Labs: Labs Reviewed by me
--- NOTE | 2024-12-06 15:15 | W.DS.TRANS ---
DC Summary - Facilities Locator
-
Discharge Instructions:
Discharge Diagnosis/Procedures Syncope
Ongoing persistent epistaxis from left nostril
Diet Low Cholesterol,Low Fat,Restrict fluids to 48 oz
,Diabetic, Carb Controlled
Blood Work cbc and bmp in 5-7 days with pcp
Specialty Instructions Weigh Daily
Instructions:
Stand-Alone Forms:
Changes to Home Medications: Yes
Discharge Medications:
DC Medications w/original date entered in [facility]
pantoprazole 40 mg tablet,delayed release 40 mg PO DAILY #30 tabs 04/19/21
allopurinol 300 mg tablet 300 mg PO DAILY Gout 07/28/23
atorvastatin 80 mg tablet 80 mg PO DAILY High Cholesterol 07/28/23
insulin aspart U-100 100 unit/mL (3 mL) subcutaneous pen (Novolog FlexPen U-100 Insulin aspart) 20 - 35 sliding scale dose SC AC Diabetes 07/28/23
insulin glargine 100 unit/mL subcutaneous solution (Lantus U-100 Insulin) 30 - 35 units SC HS Diabetes 07/28/23
magnesium oxide 500 mg PO QPM Supplement 10/18/24
cholecalciferol (vitamin D3) 50 mcg (2,000 unit) tablet 2,000 units PO DAILY Supplement 10/20/24
potassium chloride 20 mEq tablet,extended release(part/cryst) (Klor-Con M) 40 meq PO BID Electrolyte Repletion 10/20/24
apixaban 5 mg tablet (Eliquis) 5 mg PO BID Blood Clot Prevention/Tx 12/04/24
carvedilol 6.25 mg tablet 6.25 mg PO BID Heart Failure #60 tabs 12/06/24
furosemide 80 mg tablet 80 mg PO BID 30 days #60 tabs 12/06/24
metolazone 5 mg tablet 5 mg PO TUFR Heart Failure #14 tabs 12/06/24
sodium chloride 0.65 % nasal spray aerosol (Saline Nasal) 2 spray intranasal QID 30 days #44 mL 12/06/24
Home Medication Changes
carvedilol 6.25 mg tablet 6.25 mg PO BID Heart Failure #60 tabs 12/06/24
furosemide 80 mg tablet 80 mg PO BID 30 days #60 tabs 12/06/24
metolazone 5 mg tablet 5 mg PO TUFR Heart Failure #14 tabs 12/06/24
sodium chloride 0.65 % nasal spray aerosol (Saline Nasal) 2 spray intranasal QID 30 days #44 mL 12/06/24
Pending Results: No
[2024-12-06] MEDS: LASIX 40 MG PO (15:40)
[2024-12-06 16:10] VITALS: BP 118/64
== END 2024-12-06 17:17 | disposition home or self-care (01) | DRG 813 ==
LOC: 4 EAST ACU 20:33
PROVIDERS: Internal Medicine Cardiovascular Disease; Student in an Organized Health Care Education/Training Program; ADMITTING PHYSICIAN Hospitalist; ATTENDING PHYSICIAN Internal Medicine; CONSULT PHYSICIAN Internal Medicine Cardiovascular Disease; CONSULT PHYSICIAN Otolaryngology; CONSULT PHYSICIAN Psychiatry & Neurology Neurology; EMERGENCY PHYSICIAN Emergency Medicine; FAMILY PHYSICIAN Family Medicine
PROC: 093K7ZZ Control Bleeding in Nasal Mucosa and Soft Tissue, Via Natural or Artificial Opening (ICD-10-PCS; 2024-12-04)
DX: D68.32 Hemorrhagic disorder due to extrinsic circulating anticoagulants (principal); I50.23 Acute on chronic systolic (congestive) heart failure; K92.1 Melena; I48.21 Permanent atrial fibrillation; N18.4 Chronic kidney disease, stage 4 (severe); I13.0 Hypertensive heart and chronic kidney disease with heart failure and stage 1 through stage 4 chronic kidney disease, or unspecified chronic kidney disease; G81.91 Hemiplegia, unspecified affecting right dominant side; R04.0 Epistaxis; E11.22 Type 2 diabetes mellitus with diabetic chronic kidney disease; E11.65 Type 2 diabetes mellitus with hyperglycemia; G47.33 Obstructive sleep apnea (adult) (pediatric); E66.9 Obesity, unspecified; I95.1 Orthostatic hypotension; I25.10 Atherosclerotic heart disease of native coronary artery without angina pectoris; Z68.28 Body mass index [BMI] 28.0-28.9, adult
CPT/HCPCS: 70450; 80048; 80053; 82728; 82962; 83036; 83540; 83550; 83735; 83880; 84132; 84484; 85025; 85027; 85610; 85730; 93005; 93306; 96361; 96374; 97162; 99285

== ENCOUNTER 2024-12-28 11:39 | Day surgery (SDC) | payer MEDICARE, OTHER, SELFPAY ==
--- NOTE | 2024-12-28 11:07 | ITS.CL.ICD ---
Storeroom Keeper - ICD
Implantable Cardioverter Defibrillator
Procedure Report:
ICD IMPLANTATION REPORT
Date of Procedure: December 28, 2024
Primary Care Provider: Suzy Aden DO
irrigation system operator: Johnathan Carson M.D.
PROCEDURES:
1. Right Heart Cath, 2. Up-Grade to PHYSIOTHERAPY ASSISTANT ICD from PHYSIOTHERAPY ASSISTANT-P
HISTORY:
NYHA class 3
Duration of HF 1 year despite guideline directed medical therapy at maximally tolerated doses
Echocardiogram December 05, 2024 finds LVEF of 30 to 35% with global hypokinesis.
Cardiomyopathy type is noninfarct related.
Primary prevention
Life expectancy > 1 year
He has permanent atrial fibrillation and required permanent pacemaker implantation followed by AV georges ablation to obtain rate control (permanent pacemaker is [employer] with His bundle area lead).
Medical history includes chronic kidney disease with baseline creatinine of 2.8, chronic anemia with hemoglobin of 9.4,, diabetes mellitus, prior CVA and orthostatic hypotension.
He continues to have symptoms related to heart failure with reduced ejection fraction class III. Owing to significant orthostasis with attempted up titration of guideline directed medical therapy and also due to baseline significant chronic kidney
disease we have been unable to add much in terms of medical therapy to maximize guideline directed medical therapy.
Volume status is improved since his recent hospital stay last month.
LVEF remains low.
He is present with his and we had a long discussion regarding consideration for ICD implantation for sudden cardiac risk reduction. I fully explained to them that upgrade to ICD will not provide any symptomatic improvement. I described
upgrade procedure and risks in detail. They do wish to proceed.
We are planning to assess patency of left-sided central venous system and if patent attempted upgrade of PHYSIOTHERAPY ASSISTANT pacemaker to ICD.
After informed consent was obtained, a 'time out' was called and confirmed. The patient was prepped and draped in a sterile fashion.
Venous access was obtained at the left antecubital vein and contrast venography was performed under fluoroscopic imaging. This demonstrated dye hang up at the area of the axillary vein/subclavian vein just beyond the site of the two pacing leads
entrance into the central venous system on the left side.
This was performed prior to the patient receiving any sedation. I discussed the findings with the patient. We discussed that we could terminate the case now and further consider either not placing an ICD or consideration for lead extraction and
implantation of a new system. Additionally we could attempt to enter the occluded vein is possible that we could wire through and dilate up to allow access of an ICD lead. He preferred an attempt at entering the vein. Lidocaine with epi was used
for local anesthesia. Central venous access was attempted with a micropuncture needle. Venous return could be obtained just proximal to the area of the occlusion and several attempts at wiring through the occlusion were made with the micropuncture
wire however I could not make my way through the occlusion. Given that we were just within the venous system I did attempt venography by injecting 2 cc of contrast into the micropuncture dilator which I advanced over the micropuncture wire. This
continued to demonstrate occlusion with no obvious flow across the occlusion.
Ultimately it was decided we could not get across the occlusion and no further attempts were made.
COMPLICATIONS:
None
CONCLUSIONS:
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
Several attempts at passing the occlusion were made but were unsuccessful.
The case was then terminated with no attempt to implant a new lead.
RECOMMENDATIONS:
In the office he was leaning towards not considering lead extraction and reimplantation if the vein was occluded. The vein is indeed occluded. At this moment we will plan for continued cardiac resynchronization pacing via his current device
without upgrading to an ICD. Will continue to try to maximize guideline directed medical therapy for heart failure with reduced ejection fraction although medical therapy has been hampered by both chronic kidney disease and orthostasis. I
discussed the findings with his and she is also in agreement to maintain the current course for now and we can discuss further in the outpatient setting.
Copy:
Suzy Aden,
--- NOTE | 2024-12-28 11:14 | W.ICD.CONTRA ---
Post ICD/VICE PRESIDENT INDUSTRIAL RELATIONS-D
-
History of WI?: No
LV Function
Left ventricular function study result?: Ejection Fraction </= 35%
ACEI/ARB/ARNI
Patient already on ACEI/ARB/ARNI: No
ACEI/ARB/ARNI Contraindication: Acute Renal Failure
Beta-Lazaro
Patient already on Beta Lazaro: Yes
[2024-12-28 12:02] VITALS: BP 122/71
[2024-12-28 12:07] VITALS: BMI 29.8
[2024-12-28 12:36] LABS: Glucose - Point of Care 211 mg/dl (70-99)
[2024-12-28] MEDS: NOVOLOG vial 2 UNITS SC (12:51)
[2024-12-28 12:54] VITALS: BP 122/71
[2024-12-28 15:14] VITALS: BP 112/67
[2024-12-28 15:28] LABS: Glucose - Point of Care 155 mg/dl (70-99)
[2024-12-28 15:29] VITALS: BP 118/72
[2024-12-28 15:44] VITALS: BP 125/68
== END 2024-12-28 16:17 | disposition home or self-care (01) ==
LOC: CATH 11:39
PROVIDERS: ATTENDING PHYSICIAN Internal Medicine Cardiovascular Disease; FAMILY PHYSICIAN Family Medicine
DX: I82.702 Chronic embolism and thrombosis of unspecified veins of left upper extremity (principal); I48.21 Permanent atrial fibrillation; Z95.0 Presence of cardiac pacemaker; I42.9 Cardiomyopathy, unspecified; E11.22 Type 2 diabetes mellitus with diabetic chronic kidney disease; Z86.73 Personal history of transient ischemic attack (TIA), and cerebral infarction without residual deficits; I13.0 Hypertensive heart and chronic kidney disease with heart failure and stage 1 through stage 4 chronic kidney disease, or unspecified chronic kidney disease; I50.42 Chronic combined systolic (congestive) and diastolic (congestive) heart failure; N18.30 Chronic kidney disease, stage 3 unspecified; Z79.4 Long term (current) use of insulin; Z79.01 Long term (current) use of anticoagulants; Z79.899 Other long term (current) drug therapy; Z95.810 Presence of automatic (implantable) cardiac defibrillator
CPT/HCPCS: 36005; 75820; 71045; 82962; Q9967

== ENCOUNTER 2025-07-31 19:35 | Emergency (ER) | payer MEDICARE, OTHER, SELFPAY ==
--- NOTE | 2025-07-31 19:46 | ED.GENMED ---
History of Present Illness
General
Chief Complaint: CODE
Source: other (Friend)
Exam Limitations: clinical condition
Time Seen by Provider: 07/31/25 19:45
History of Present Illness
History of Present Illness:
See MDM
Past History
Past History
ED Past Medical History: Arrthythmia, CAD, HTN, Hypercholesterolemia, NIDDM, Other (Chronic kidney disease) and Other (Anemia)
ED Past Surgical History: Cardiac, Orthopedic and Other (Hernia surgery)
Social History
Tobacco: Former smoker
Alcohol: None
Drug: None
Personal:
Living: with family
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
Family History
Family History: Other (Noncontributory)
Phy Exam
Physical Exam
Physical Exam:
See MDM
MDM/Problems Addressed
Differential Diagnosis Includes:
Note:
CHIEF COMPLAINT(S)
Unresponsiveness and cardiac arrest.
HISTORY OF PRESENT ILLNESS
The patient is an 75-year-old male with a history of cardiac and diabetic conditions. He was found unresponsive after a two-hour car ride with a friend. The friend mentioned the patient indicated he was tired at 5:00 PM. During the ride, the patient
was thought to have silently coded. Upon arrival, he was found cold and without a pulse. His pupils were dilated, indicating prolonged downtime. The friend provided additional history, noting the patient did not communicate during the ride. After
arriving home, the friend had realized that the patient was unresponsive so he drove another 10 minutes to get to the hospital. On arrival, CPR was started immediately and patient brought back to the room immediately. Patient has cool and mottled
skin. He has fixed and dilated pupils. Patient does have a pacemaker which shows PEA on the monitor. Bedside echo shows no cardiac function. After several rounds of epinephrine and bicarb and high-quality CPR, time of was called at 1944
PHYSICAL EXAM
General: Unresponsive, GCS
Skin: Cold and mottled
Head: Normocephalic, atraumatic
Neck: trachea midline.
Eyes, Ears, Nose, Mouth, and Throat: Dry mucous membranes. Small subconjunctival hemorrhage to right eye. Pupils fixed and dilated
Cardiovascular: No palpable pulse
Respiratory: No respiratory response
Abdomen: Non-distended
Musculoskeletal: No deformities
Neurological: No purposeful movement noted
Psychiatric: Flat affect
DIFFERENTIAL DIAGNOSIS
The Differential Diagnosis includes, in no particular order and is not limited to:
- Cardiac arrest
- Myocardial infarction
- Pulmonary embolism
- Severe hypoglycemia
- Stroke
- Acute heart failure
- Aortic dissection
- Severe electrolyte imbalance
- Hypothermia
- Toxicological cause
SUMMARY OF ENCOUNTER
The patient, an 75-year-old male with known cardiac and diabetic history, was found in cardiac arrest after a two-hour car ride. Emergency resuscitation efforts including epinephrine administration and CPR were initiated. Despite these efforts,
there was no return of cardiac activity, leading to a consideration of prolonged downtime contributing to non-survivability.
DISPOSITION
Patient declared .
EMERGENCY TREATMENTS ADMINISTERED
Epinephrine administered during resuscitation efforts.
MEDICAL DECISION MAKING
- Complexity of Data Reviewed: Chronic conditions affecting care include known cardiovascular and diabetic history.
- Data:
- Category 1: Assessment of cardiac arrest with pulseless electrical activity, use of epinephrine in resuscitation.
- Category 2: Input from the brother as an independent historian.
- Category 3: None discussed.
- Risk: Escalation of care, including administration of resuscitative medications, was initiated; however, prolonged downtime indicated a high probability of unsuccessful resuscitation.
CARE-UPDATE
07/31/25 - :11
The patient has a significant cardiac history. The patient appeared to fall asleep quickly during a car ride at 5 p.m. After approximately two hours, he was found to be non-responsive when his brother attempted to wake him. CPR was initiated upon
arrival at the hospital following a 10-minute drive.
07/31/25 - 20:47
Patient clearance was confirmed by the esthetician and manager medical spa, [facility], at 8:47 p.m., allowing for release from their standpoint.
SUMMARY OF ENCOUNTER
The patient, an 86-year-old male with a history of cardiac and diabetic conditions, presented to the emergency department in cardiac arrest. It was reported that the patient had an unknown downtime, potentially around two hours. Upon arrival, the
patient exhibited mottled skin, with fixed and dilated pupils, and no palpable pulse was detected. Despite emergency resuscitation efforts, which included administration of epinephrine and CPR, no cardiac activity was regained. The absence of trauma
and the patients medical history suggested that was natural. The case was reviewed by the esthetician and manager medical spa, who cleared the patient, and the time of was officially called at 7:44 PM.
DISPOSITION
Patient declared .
ASSESSMENT
The patient experienced a natural cardiac arrest with an extended period of downtime, leading to unsuccessful resuscitation efforts and .
EMERGENCY TREATMENTS ADMINISTERED
Epinephrine was administered during resuscitation efforts.
MEDICAL DECISION MAKING
- Number and Complexity of Problems Addressed: Chronic conditions affecting care include a known cardiac history and diabetes mellitus. Differential diagnosis considerations included cardiac arrest, myocardial infarction, pulmonary embolism, severe
hypoglycemia, stroke, acute heart failure, aortic dissection, severe electrolyte imbalance, hypothermia, and toxicological cause.
- Data:
- Category 1: My independent EKG interpretation shows pulseless electrical activity (PEA).
- Category 2: Input from the brother as an independent historian helped provide context to the patients medical presentation.
DIAGNOSIS
- Cardiac arrest, unspecified (ICD-10: I46.9)
- Diabetes mellitus (ICD-10: E11.9)
- Hypertensive heart disease (ICD-10: I11.9)
*Pulse Oximetry
Patient hypoxic: no
*Critical Care Note
Total Time (30-74mins, 75-104mins- exclusive of procedures): 20 min
comment:
The high probability of a clinically significant, sudden or life threatening deterioration of the cardiovascular system(s) required my full and direct attention, intervention and personal management. The aggregate critical care time was 20 minutes.
This time is in addition to time spent performing reported procedures but includes the following:
[x] Data Review and interpretation
[x] Patient assessment and monitoring of vital signs
[x] Documentation
[x] Medication orders and management
ED Attending Note
-
Portions of this chart may have been created with voice recognition software.� Occasional wrong word or��sound alike� substitutions may have occurred due to the inherent limitations of voice recognition software.
Discharge Plan
Departure
Patient Disposition:
Date of Disposition: 07/31/25
Time of Disposition: 19:44
Discharge Problem:
Cardiac arrest
Prescriptions:
No Action
allopurinol 300 mg Tablet
300 mg PO DAILY
atorvastatin 80 MG tablet
80 mg PO DAILY
insulin glargine [Lantus U-100 Insulin] 1,000 UNITS/10 ML solution
30 - 35 units SC HS
insulin aspart U-100 [Novolog FlexPen U-100 Insulin] 300 UNITS/3 ML insulin pen
20 - 35 sliding scale dose SC AC
Patient Comments:
sliding scale with meals
magnesium oxide 500 mg magnesium tablet
500 mg PO QPM
potassium chloride [Klor-Con M20] 20 mEq tablet,ER particles/crystals
40 meq PO BID
cholecalciferol (vitamin D3) 2,000 UNITS tablet
2,000 units PO DAILY
Eliquis 5 MG tablet
5 mg PO BID
metolazone 5 mg Tablet
5 mg PO TUFR Qty: 14 0RF
Saline Nasal 0.65 % Aerosol,[place]
2 spray intranasal QID 30 Days Qty: 44 0RF
furosemide 80 mg tablet
80 mg PO BID 30 Days Qty: 60 0RF
carvedilol 6.25 mg tablet
12.5 mg PO BID
pantoprazole 40 MG tablet,delayed release (DR/EC)
40 mg PO DAILY Qty: 30 0RF
Discharge Date and Time
Print Language: SURINAMESE
== END 2025-07-31 19:44 | disposition expired ==
LOC: EMR 19:35
PROVIDERS: EMERGENCY PHYSICIAN Student in an Organized Health Care Education/Training Program
DX: I46.9 Cardiac arrest, cause unspecified (principal); E11.22 Type 2 diabetes mellitus with diabetic chronic kidney disease; I13.10 Hypertensive heart and chronic kidney disease without heart failure, with stage 1 through stage 4 chronic kidney disease, or unspecified chronic kidney disease; N18.9 Chronic kidney disease, unspecified; I25.10 Atherosclerotic heart disease of native coronary artery without angina pectoris; E78.00 Pure hypercholesterolemia, unspecified; Z87.891 Personal history of nicotine dependence; Z95.0 Presence of cardiac pacemaker
CPT/HCPCS: 99285; 92950